=== PATIENT | male | born 1955 | race Caucasian/White ===

== ENCOUNTER 2020-03-10 08:18 | Outpatient (CLI) | payer MEDICARE, SELFPAY ==
--- NOTE | 2020-03-10 08:24 | XR_ITS ---
WS: [id number] Chest 2 views, 03/10/2020 Clinical Data: HX of Renal cancer Comparison: PA and lateral chest, 06/10/2019. Findings: No nodules, masses or effusions are seen. The heart is normal. The pulmonary vascularity is not increased. No pneumonia or pneumothorax is seen. There is elevation of the left diaphragm and mi nimal left basilar scarring. The aortic arch and descending aorta show atherosclerosis. The right dionicio phragm is flattened. XR/XR chest 2V* [id number] Impression: 1. Atherosclerosis and hyperinflation. 2. Postoperative left basilar scarring and elevation of the left diaphragm unch anged.
[2020-03-10 08:59] LABS: Basophils % 0.2 %; Eosinophils # 0.4 10^3/uL (0.0-0.8); Eosinophils % 3.9 %; Hematocrit 46.2 % (42.0-52.0); Hemoglobin 14.3 g/dL (11.7-16.6); Lymphocytes # 2.3 10^3/uL (0.8-4.8); Lymphocytes % 24.9 %; Mean Corpuscular Hemoglobin 31.5 pg (28.0-34.0); Mean Corpuscular Volume 101.8 fL (80-94); Mean Platelet Volume 9.1 fL (7.4-10.4); Monocytes # 0.9 10^3/uL (0.2-0.9); Neutrophils # 5.6 10^3/uL (1.8-7.7); Neutrophils % 60.7 %; Nucleated Red Blood Cells % 0 %; Platelet Count 239 10^3/cmm (130-400); Red Blood Count 4.54 10^6/uL (4.1-5.3); Red Cell Distribution Width 13.3 % (12.1-15.1); White Blood Count 9.2 10^3/uL (4.0-10.0)
[2020-03-10 09:31] LABS: Alanine Aminotransferase 28 U/L (0-41); Albumin Level 4.4 g/dL (3.5-5.2); Alkaline Phosphatase 81 IU/L (40-130); Anion Gap 16.4 (5-19); Aspartate Amino Transferase 20 U/L (0-40); Blood Urea Nitrogen 21 mg/dL (8-23); Calcium 9.2 mg/dL (8.5-10.5); Carbon Dioxide 23 mmol/L (22-29); Chloride 107 mmol/L (98-107); Globulin 2.5 g/dL (1.3-4.6); Glomerular Filtration Rate 55.2 mL/min (90-130); Glucose 122 mg/dL (65-115); Osmolality Calculated 290 mOsm/kg (285-295); Potassium 5.4 mmol/L (3.5-5.1); Sodium 141 mmol/L (136-145); Total Bilirubin 0.2 mg/dL (0.15-1.2); Total Protein 6.9 g/dL (6.6-8.7)
== END 2020-03-10 08:19 | disposition home or self-care (01) ==
LOC: RAD 08:22
PROVIDERS: Family Provider Electrodiagnostic Medicine; PCP Electrodiagnostic Medicine; Visit Provider Urology
DX: Z85.528 Personal history of other malignant neoplasm of kidney (principal); N41.1 Chronic prostatitis; I70.90 Unspecified atherosclerosis
CPT/HCPCS: 71046; 80053; 81001; 84153; 85025

== ENCOUNTER 2020-06-11 07:46 | Outpatient (CLI) | payer MEDICARE, SELFPAY ==
--- NOTE | 2020-06-11 08:04 | CT_ITS ---
WS: [id number] CT HEAD NONCONTRAST HISTORY: HISTORY OF CLOSED HEAD INJURY TECHNIQUE: Contiguous axial imaging performed through the brain in 2.5 mm imaging. Bone and soft tiss ue windows. All CT scans at [facility] use at least one of these dose optimization techniq ues: automated exposure control; mA and/or kV adjustment per patient size (includes targeted exams wh ere dose is matched to clinical indication); or iterative reconstruction. DLP: 992.04 mGycm COMPARISON: None available. No acute intracranial hemorrhage, midline shift or mass effect. Mild atrophy and mild chronic microvascular ischemic disease. No prior infarct. Mild cerebellar atrop hy also. Ventricles: Normal size with no hydrocephalus. No inferior displacement of the cerebellar tonsils. Paranasal sinuses: Moderate mucoperiosteal thickening bilateral ethmoid air cells. No air-fluid level s. Mastoid air cells: Well pneumatized. Calvarium and scalp: Skull is intact with no soft tissue edema or swelling. CT/CT head wo con* [id number] IMPRESSION: 1. No acute intracranial hemorrhage or edema. 2. Mild cerebral and cerebellar atrophy. 3. Moderate bilateral ethmoid air cell disease.
== END 2020-06-11 07:47 | disposition home or self-care (01) ==
LOC: RADWPI 07:50
PROVIDERS: Family Provider Electrodiagnostic Medicine; PCP Electrodiagnostic Medicine; Visit Provider Electrodiagnostic Medicine
DX: Z87.828 Personal history of other (healed) physical injury and trauma (principal); G31.9 Degenerative disease of nervous system, unspecified
CPT/HCPCS: 70450

== ENCOUNTER 2020-12-07 07:50 | Outpatient (CLI) | payer MEDICARE, SELFPAY ==
--- NOTE | 2020-12-07 07:59 | XRR_ITS ---
PROCEDURE INFORMATION: Exam: XR Chest Exam date and time: 12/07/2020 8:09 AM Age: 65 years old Clinical indication: Condition or disease; Other: Renal cancer; Prior surgery; Surgery type: Left lower lung lobe removal; Additional info: Renal CA TECHNIQUE: Imaging protocol: XR of the chest Views: 2 views. COMPARISON: CT chest w con* [id number] 03/11/2020 12:12 PM FINDINGS: Lungs: There is stable chronic elevation of the left hemidiaphragm with left basilar fibrosis consistent with the history of left lower lobectomy. Bilateral emphysematous changes are present. No acute pneumonia is seen. Pleural spaces: Unremarkable. No pleural effusion. No pneumothorax. Heart/Mediastinum: Unremarkable. No cardiomegaly. Vasculature: A MediPort catheter is present in satisfactory position with the tip projecting in the SVC. Bones/joints: Unremarkable. XR/XR chest 2V* [id number] IMPRESSION: 1. Postsurgical changes in the left base consistent with history of lower lobectomy. 2. No acute abnormalities.
== END 2020-12-07 07:51 | disposition home or self-care (01) ==
LOC: RAD 07:56
PROVIDERS: PCP Electrodiagnostic Medicine; Visit Provider Urology
DX: C64.9 Malignant neoplasm of unspecified kidney, except renal pelvis (principal); R97.20 Elevated prostate specific antigen [PSA]
CPT/HCPCS: 71046; 80053; 81003; 84153; 85025

== ENCOUNTER 2021-07-12 09:41 | Outpatient (CLI) | payer MEDICARE, SELFPAY ==
--- NOTE | 2021-07-12 09:46 | XR_ITS ---
WS: [id number] XR chest 2V* [id number] REASON FOR EXAM: Renal CANCER FINDINGS: The chest is unchanged compared to 12/07/2020. The heart and mediastinum are within normal limits. Chemotherapy infusion port over the right chest with transvenous right jugular catheter with tip in t he superior vena cava. Elevation of the left hemidiaphragm with blunting of the left costophrenic angle. Calcified granulomatous disease in both hemithoraces. No active pulmonary parenchymal or pleural disease. No significant abnormality of the bony thorax. XR/XR chest 2V* [id number] IMPRESSION: Stable chest as above. No acute abnormality.
[2021-07-12 10:59] LABS: Basophils % 0.3 %; Eosinophils # 0.2 10^3/uL (0.0-0.8); Eosinophils % 1.8 %; Hematocrit 36.1 % (42.0-52.0); Hemoglobin 11.2 g/dL (11.7-16.6); Lymphocytes # 1.5 10^3/uL (0.8-4.8); Lymphocytes % 14.9 %; Mean Corpuscular Hemoglobin 33.2 pg (28.0-34.0); Mean Corpuscular Volume 107.1 fl (80-94); Mean Platelet Volume 9.4 fL (7.4-10.4); Monocytes % 9.4 %; Neutrophils # 7.53 10^3/uL (1.8-7.7); Neutrophils % 73.3 %; Nucleated Red Blood Cells % 0 %; Platelet Count 176 10^3/cmm (130-400); Red Blood Count 3.37 10^6/uL (4.1-5.3); Red Cell Distribution Width 15.7 % (12.1-15.1); White Blood Count 10.3 10^3/uL (4.0-10.0)
[2021-07-12 12:04] LABS: Alanine Aminotransferase 6 U/L (0-41); Albumin Level 3.9 g/dL (3.5-5.2); Alkaline Phosphatase 58 IU/L (40-130); Anion Gap 18.8 (5-19); Aspartate Amino Transferase 8 U/L (0-40); Blood Urea Nitrogen 16 mg/dL (8-23); Calcium 10.2 mg/dL (8.5-10.5); Carbon Dioxide 23 mmol/L (22-29); Chloride 103 mmol/L (98-107); Globulin 3.2 g/dL (1.3-4.6); Glomerular Filtration Rate 96.4 mL/min (90-130); Glucose 93 mg/dL (65-115); Osmolality Calculated 291 mOsm/kg (285-295); Potassium 4.8 mmol/L (3.5-5.1); Sodium 140 mmol/L (136-145); Total Bilirubin 0.2 mg/dL (0.15-1.2); Total Protein 7.1 g/dL (6.6-8.7)
== END 2021-07-12 09:42 | disposition home or self-care (01) ==
PROVIDERS: PCP Electrodiagnostic Medicine; Visit Provider Urology
DX: C64.9 Malignant neoplasm of unspecified kidney, except renal pelvis (principal); R97.20 Elevated prostate specific antigen [PSA]
CPT/HCPCS: 36415; 71046; 80053; 81003; 84153; 85025

== ENCOUNTER 2021-10-31 08:15 | Outpatient (CLI) | payer MEDICARE, SELFPAY | END 2021-10-31 08:16 | disposition home or self-care (01) | LOC: WOUND 08:18 | PROVIDERS: PCP Electrodiagnostic Medicine; Visit Provider Thoracic Surgery (Cardiothoracic Vascular Surgery) | DX: I96 Gangrene, not elsewhere classified (principal); L05.91 Pilonidal cyst without abscess; Z87.891 Personal history of nicotine dependence | CPT/HCPCS: 11042; 99213; A6212 ==

== ENCOUNTER 2021-11-02 10:09 | Outpatient (CLI) | payer MEDICARE, SELFPAY ==
--- NOTE | 2021-11-02 10:15 | XR_ITS ---
WS: [id number] XR chest 2V* [id number] REASON FOR EXAM: L LUNG SQUAMOUS CELL CARCINOMA/HTN/PULMONARY EMBOLISM FINDINGS: Chemotherapy infusion port with transvenous jugular catheter, tip in the superior vena cava. The heart and mediastinum are within normal limits. Elevation of the left hemidiaphragm with blunting of the left costophrenic angle. Calcified granulomatous disease. Emphysematous changes in the upper lobes. No acute pulmonary parench ymal or pleural abnormality. Moderate changes of degenerative spondylosis in the mid and lower thoracic spine. XR/XR chest 2V* [id number] IMPRESSION: No acute chest abnormality. Chest appears stable compared to 07/12/2021.
== END 2021-11-02 10:10 | disposition home or self-care (01) ==
LOC: RAD 10:14
PROVIDERS: PCP Electrodiagnostic Medicine; Visit Provider Electrodiagnostic Medicine
DX: C34.32 Malignant neoplasm of lower lobe, left bronchus or lung (principal); C64.9 Malignant neoplasm of unspecified kidney, except renal pelvis; I26.99 Other pulmonary embolism without acute cor pulmonale; I10 Essential (primary) hypertension; J44.9 Chronic obstructive pulmonary disease, unspecified
CPT/HCPCS: 71046

== ENCOUNTER 2021-11-07 09:08 | Outpatient (CLI) | payer MEDICARE, SELFPAY | END 2021-11-07 09:09 | disposition home or self-care (01) | LOC: WOUND 09:09 | PROVIDERS: PCP Electrodiagnostic Medicine; Visit Provider Thoracic Surgery (Cardiothoracic Vascular Surgery) | DX: T81.89XA Other complications of procedures, not elsewhere classified, initial encounter (principal); Y83.8 Other surgical procedures as the cause of abnormal reaction of the patient, or of later complication, without mention of misadventure at the time of the procedure; Z87.891 Personal history of nicotine dependence | CPT/HCPCS: 11042 ==

== ENCOUNTER 2021-11-14 10:54 | Outpatient (CLI) | payer MEDICARE, SELFPAY | END 2021-11-14 10:55 | disposition home or self-care (01) | LOC: WOUND 10:55 | PROVIDERS: PCP Electrodiagnostic Medicine; Visit Provider Thoracic Surgery (Cardiothoracic Vascular Surgery) | DX: T81.89XA Other complications of procedures, not elsewhere classified, initial encounter (principal); Y83.8 Other surgical procedures as the cause of abnormal reaction of the patient, or of later complication, without mention of misadventure at the time of the procedure; Z87.891 Personal history of nicotine dependence | CPT/HCPCS: 97597 ==

== ENCOUNTER 2021-11-21 13:49 | Outpatient (CLI) | payer MEDICARE, SELFPAY | END 2021-11-21 13:50 | disposition home or self-care (01) | LOC: WOUND 13:50 | PROVIDERS: PCP Electrodiagnostic Medicine; Visit Provider Thoracic Surgery (Cardiothoracic Vascular Surgery) | DX: T81.89XA Other complications of procedures, not elsewhere classified, initial encounter (principal); Y83.8 Other surgical procedures as the cause of abnormal reaction of the patient, or of later complication, without mention of misadventure at the time of the procedure; Z87.891 Personal history of nicotine dependence | CPT/HCPCS: 97597; A6212 ==

== ENCOUNTER 2021-11-28 13:17 | Outpatient (CLI) | payer MEDICARE, SELFPAY | END 2021-11-28 13:18 | disposition home or self-care (01) | LOC: WOUND 13:18 | PROVIDERS: PCP Electrodiagnostic Medicine; Visit Provider Thoracic Surgery (Cardiothoracic Vascular Surgery) | DX: T81.31XS Disruption of external operation (surgical) wound, not elsewhere classified, sequela (principal); Y83.8 Other surgical procedures as the cause of abnormal reaction of the patient, or of later complication, without mention of misadventure at the time of the procedure | CPT/HCPCS: 11042; 97597; A6212; A6219 ==

== ENCOUNTER 2021-11-29 23:45 | Inpatient (IN) | payer MEDICARE, SELFPAY ==
[2021-11-29 23:57] VITALS: BP 104/64; PULSE 112; RESP 22; TEMP 39.3; O2SAT 93; BMI 25.1
[2021-11-30] VITALS (202 sets, daily range): BP systolic 79–129; BP diastolic 51–71; PULSE 40–125; RESP 11–33; TEMP 36.5–37.1; O2SAT 92–100
--- NOTE | 2021-11-30 00:04 | ECG_ITS ---
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 Measurements Intervals Cunningham Rate: 90 P: 47 MO: 192 QRS: 73 QRSD: 147 T: 31 QT: 387 QTc: 476 Interpretive Statements SINUS RHYTHM RIGHT BUNDLE BRANCH BLOCK [120+ ms QRS DURATION, UPRIGHT V1, 40+ ms S IN I/aVL/V4/V5/V6] Compared to ECG 12/31/2016 03:17:02 Right bundle-branch block now present Intraventricular conduction delay no longer present Electronically Signed On 11-30-2021 16:01:03 WAREHOUSE ASSOCIATE by Ramon Adams M.D. [id number]
--- NOTE | 2021-11-30 00:13 | CTR_ITS ---
PROCEDURE INFORMATION: Exam: CT Head Without Contrast Exam date and time: 11/30/2021 12:13 AM Age: 66 years old Clinical indication: Altered mental status/memory loss; Patient HX: Increased confusion with hypotension. History of lung/renal cancer. ; Additional info: AMS TECHNIQUE: Imaging protocol: Computed tomography of the head without contrast. Radiation optimization: All CT scans at this facility use at least one of these dose optimization techniques: automated exposure control; mA and/or kV adjustment per patient size (includes targeted exams where dose is matched to clinical indication); or iterative reconstruction. COMPARISON: CT head wo con* [id number] 06/11/2020 8:10 AM RADIATION DOSE METRICS: Total DLP (mGy-cm): 851.86 FINDINGS: Brain: Normal. No hemorrhage. Unremarkable white matter. No mass effect. Cerebral ventricles: No ventriculomegaly. Paranasal sinuses: Visualized sinuses are unremarkable. No fluid levels. Mastoid air cells: Visualized mastoid air cells are well aerated. Bones/joints: Unremarkable. No acute fracture. Soft tissues: Unremarkable. CT/CT head wo con* [id number] IMPRESSION: No acute intracranial abnormality.
--- NOTE | 2021-11-30 00:19 | ED_ITS ---
HPI - Altered Mental Status General: Chief Complaint: Altered Mental Status Stated Complaint: AMS Time Seen by Provider: 11/29/21 23:47 Source: patient and EMS Mode of arrival: EMS Limitations: no limitations History of Present Illness: 66-year-old male who history of lung cancer in the past had a lobectomy called EMS today because he was running fever having altered mental status he is also had a slight cough. EMS states when he arrived he is quite altered he is now awake alert answering all my questions appropriately he is back to his baseline. He states that he has not felt well over the last day to 2 and has had fevers and chills. He denies any worsening improving factors denies any headache or neck pain. Associated symptoms: Deny depression Review of Systems Const: Reports: fever(s), chills and body aches Eyes: Denies: blurry vision or eye discomfort ENMT: Denies: throat pain or dental pain Card: Denies: chest pain Resp: Reports: non-productive cough GI: Denies: abdominal pain, nausea, vomiting or diarrhea : Denies: dysuria Musc: Denies: neck pain or back pain Skin/Breast: Denies: rash Neuro: Reports: confusion Psych: Denies: depression Ankur/Lymph: Denies: easy bruising All/Imm: Denies: urticaria PFSH ED PFSH: Medical History (Updated 11/30/21 @ 02:39 by Lucio Cueto MD) BPH loc w urin obs/LUTS Elevated PSA Renal cancer S/p nephrectomy Surgical History H/O hernia repair H/O prostate biopsy Previous back surgery Family History Father , AT AGE 58 Automobile accident Mother , AT AGE 89 CHF (congestive heart failure) Social History Smoking and tobacco status: former smoker Alcohol intake: never Marital status: Current occupational status: retired History of recent travel: No Physical Exam Const: COMMON NORMALS: patient oriented x3 GENERAL APPEARANCE: in distress, ill appearing and frail appearing HENMT: COMMON NORMALS: normocephalic and atraumatic HEAD & SCALP: normocephalic and atraumatic Eye: COMMON NORMALS: Equal, round and reactive pupils present and EOMs intact bilaterally PUPIL: Yes Equal, round and reactive pupils present Neck/C-Spine: COMMON NORMALS: full ROM and supple Chest: COMMONS NORMALS: normal inspection of the chest and normal palpation of entire chest wall Resp: COMMON NORMALS: normal respiratory effort, No retractions, No use of accessory muscles and clear to auscultation bilaterally AUSCULTATION: clear to auscultation bilaterally Cardio: COMMON NORMALS: regular rate, regular rhythm and No murmurs present (Cardio) RATE: regular rate RHYTHM: regular rhythm GI: COMMON NORMALS: Normal to inspection, nondistended, normoactive bowel sounds present, Soft to palpation, non-tender and no masses PALPATION: Yes Soft to palpation Extremity: COMMON NORMALS: normal to inspection and full ROM Neuro: COMMON NORMALS: patient oriented x3, moves all extremities and no focal motor deficits Psych: COMMON NORMALS: mental status grossly normal, Normal thought process present and cooperative THOUGHT PROCESS: Normal thought process present Skin: COMMON NORMALS: no rashes or lesions noted and no wounds GENERAL SKIN EXAM: no rashes or lesions noted Course Vital Signs: Vital signs: Vital Signs Temperature 102.7 F H 11/29/21 23:57 Pulse Rate 101 H 11/30/21 01:59 Respiratory Rate 14 11/30/21 01:59 Blood Pressure 93/56 11/30/21 01:59 Pulse Oximetry 98 11/30/21 01:59 MDM - Altered Mental Status Medical Decision Making Patient presents with fever along with hypotension consistent with sepsis his lactate was normal does have an elevated white count blood pressures much improved here after IV fluids. He also has anemia speak in his has had some chronic anemia no signs of acute hemorrhage we will give him 1 unit of blood though. Patient started on IV antibiotics as well x-ray showed a pneumonia. After being here he is now awake alert answering all my questions appropriately he has no altered mental status here denies any headache or neck pain no signs of meningitis Lab Data : 11/30/21 01:00 11/29/21 23:[address] 11/30/21 00:13 IMPRESSION: No acute intracranial abnormality. Chest X-Ray 11/30/21 00:56 IMPRESSION: 1. Stable right Mediport catheter. 2. Mild bibasilar atelectasis and/or pneumonia. Laboratory Results WBC 21.3 10^3/uL (4.0-10.0) H 11/29/21 23:48 RBC 2.68 10^6/uL (4.1-5.3) L 11/29/21 23:48 Hgb 7.1 g/dL (11.7-16.6) L 11/30/21 01:00 Hct 24.8 % (42.0-52.0) L 11/30/21 01:00 MCV 92.9 fl (80-94) 11/29/21 23:48 MCH 26.5 pg (28.0-34.0) L 11/29/21 23:48 MCHC 28.5 g/dL (30.0-36.0) L 11/29/21 23:48 RDW 18.0 % (12.1-15.1) H 11/29/21 23:48 Plt Count 235 10^3/cmm (130-400) 11/29/21 23:48 MPV 10.6 fL (7.4-10.4) H 11/29/21 23:48 Neut % (Auto) 89.1 % 11/29/21 23:48 Lymph % (Auto) 2.0 % 11/29/21 23:48 [place] % (Auto) 7.8 % 11/29/21 23:48 Eos % (Auto) 0.4 % 11/29/21 23:48 Baso % (Auto) 0.1 % 11/29/21 23:48 Neut # (Auto) 18.93 10^3/uL (1.8-7.7) H 11/29/21 23:48 Lymph # (Auto) 0.4 10^3/uL (0.8-4.8) L 11/29/21 23:48 [place] # (Auto) 1.7 10^3/uL (0.2-0.9) H 11/29/21 23:48 Eos # (Auto) 0.1 10^3/uL (0.0-0.8) 11/29/21 23:48 Baso # (Auto) 0.0 10^3/uL (0.0-0.1) 11/29/21 23:48 Nucleated RBC % (auto) 0 % 11/29/21 23:48 Nucleated RBCs # 0.0 /100WBC 11/29/21 23:48 PT 20.20 SECONDS (12.1-14.9) H 11/29/21 23:31 INR 1.69 (0.8-1.2) H 11/29/21 23:31 Specimen Type Arterial 11/30/21 02:13 Sample Site Brachial, right 11/30/21 02:13 ABG pH 7.42 (7.35-7.45) 11/30/21 02:13 ABG pCO2 40.8 mmHg (35-45) 11/30/21 02:13 ABG pO2 76.2 mmHg (80.0-100.0) L 11/30/21 02:13 ABG HCO3 26.2 mmol/L (22-26) H 11/30/21 02:13 ABG Base Excess 1.5 mmol/L (-2.0-2.0) 11/30/21 02:13 Prabhjot Test Pos 11/30/21 02:13 Hematocrit 23.1 % (42-52) L 11/30/21 02:13 O2 Delivery Device Nc 11/30/21 02:13 O2 Liters/Min 3.5 % 11/30/21 02:13 Head Of Acquisitions ID Sai 11/30/21 02:13 Sodium 136 mmol/L (136-145) 11/29/21 23:31 Potassium 4.1 mmol/L (3.5-5.1) 11/29/21 23:31 Chloride 99 mmol/L (98-107) 11/29/21 23:31 Carbon Dioxide 26 mmol/L (22-29) 11/29/21 23:31 Anion Gap 15.1 (5-19) 11/29/21 23:31 BUN 17 mg/dL (8-23) 11/29/21 23:31 Creatinine 0.9 mg/dL (0.7-1.2) 11/29/21 23:31 GFR Calculation 83.9 mL/min (90-130) L 11/29/21 23:31 Glucose 121 mg/dL (65-115) H 11/29/21 23:31 Calculated Osmolality 285 mOsm/kg (285-295) 11/29/21 23:31 Lactic Acid 1.7 mmol/L (0.5-2.2) 11/29/21 23:48 Calcium 10.5 mg/dL (8.5-10.5) 11/29/21 23:31 Total Bilirubin 0.3 mg/dL (0.15-1.2) 11/29/21 23:31 AST 17 U/L (0-40) 11/29/21 23:31 ALT 19 U/L (0-41) 11/29/21 23:31 Alkaline Phosphatase 106 IU/L (40-130) 11/29/21 23:31 Total Protein 6.0 g/dL (6.6-8.7) L 11/29/21 23:31 Albumin 2.8 g/dL (3.5-5.2) L 11/29/21 23:31 Globulin 3.2 g/dL (1.3-4.6) 11/29/21 23:31 Lipase 6 U/L (13-60) L 11/29/21 23:31 SARS-CoV-2 Ag (Rapid) Negative (Negative) 11/30/21 01:31 Critical Care Time Critical Care Time: Critical Care Time: Yes Total Critical Care Time: 40 Attestation: The high probability of a clinically significant, sudden or life threatening deterioration of the patient's CV, pulm system(s) required my full and direct attention, intervention and personal management. The critical care time is as shown. This time is in addition to time spent performing any reported procedures but includes the following: [x] Data and vital sign review and interpretation [x] Patient assessment, examination and intervention [x] Documentation [x] Medication orders and management Discharge Plan Discharge Patient Disposition: Admitted As Inpatient Clinical Impression: Anemia Altered mental status Qualifiers: Altered mental status type: unspecified Qualified Code(s): R41.82 - Altered mental status, unspecified Sepsis Qualifiers: Sepsis type: sepsis due to unspecified organism Pneumonia Qualifiers: Pneumonia type: due to unspecified organism Laterality: bilateral Lung location: lower lobe of lung Qualified Code(s): J18.9 - Pneumonia, unspecified organism Condition: Stable Coding Level of Care Code ED Regional Environmental [employer] for [facility] Fwd Exam Comprehensive
[2021-11-30 00:22] LABS: INR 1.69 (0.8-1.2)
[2021-11-30 00:25] LABS: Basophils % 0.1 %; Eosinophils # 0.1 10^3/uL (0.0-0.8); Eosinophils % 0.4 %; Hematocrit 24.9 % (42.0-52.0); Hemoglobin 7.1 g/dL (11.7-16.6); Lymphocytes # 0.4 10^3/uL (0.8-4.8); Mean Corpuscular HGB Conc 28.5 g/dL (30.0-36.0); Mean Corpuscular Hemoglobin 26.5 pg (28.0-34.0); Mean Corpuscular Volume 92.9 fl (80-94); Mean Platelet Volume 10.6 fL (7.4-10.4); Monocytes # 1.7 10^3/uL (0.2-0.9); Monocytes % 7.8 %; Neutrophils # 18.93 10^3/uL (1.8-7.7); Neutrophils % 89.1 %; Nucleated Red Blood Cells % 0 %; Platelet Count 235 10^3/cmm (130-400); Red Blood Count 2.68 10^6/uL (4.1-5.3); White Blood Count 21.3 10^3/uL (4.0-10.0)
[2021-11-30 00:30] LABS: Lactic Sepsis W/Reflex 1.7 mmol/L (0.5-2.2)
[2021-11-30 00:31] LABS: Alanine Aminotransferase 19 U/L (0-41); Albumin Level 2.8 g/dL (3.5-5.2); Alkaline Phosphatase 106 IU/L (40-130); Anion Gap 15.1 (5-19); Aspartate Amino Transferase 17 U/L (0-40); Blood Urea Nitrogen 17 mg/dL (8-23); Calcium 10.5 mg/dL (8.5-10.5); Carbon Dioxide 26 mmol/L (22-29); Chloride 99 mmol/L (98-107); Creatinine Clr Calc Pharmacy 83.9462; Globulin 3.2 g/dL (1.3-4.6); Glomerular Filtration Rate 83.9 mL/min (90-130); Glucose 121 mg/dL (65-115); Lipase 6 U/L (13-60); Osmolality Calculated 285 mOsm/kg (285-295); Potassium 4.1 mmol/L (3.5-5.1); Sodium 136 mmol/L (136-145); Total Bilirubin 0.3 mg/dL (0.15-1.2)
--- NOTE | 2021-11-30 00:56 | XRR_ITS ---
PROCEDURE INFORMATION: Exam: XR Chest Exam date and time: 11/30/2021 12:56 AM Age: 66 years old Clinical indication: Fever and shortness of breath; Prior surgery; Surgery type: Chest port. ; Patient HX: SOB with fever. History of lung/renal cancer. TECHNIQUE: Imaging protocol: XR of the chest. Views: 1 view. COMPARISON: CR XR chest 2V* [id number] 11/02/2021 10:21 AM FINDINGS: Tubes, catheters and devices: Stable right Mediport catheter. Lungs: Mild bibasilar atelectasis and/or pneumonia. Pleural spaces: Unremarkable. No pleural effusion. No pneumothorax. Heart/Mediastinum: Unremarkable. No cardiomegaly. Vasculature: Calcification of the thoracic aorta and/or great vessels consistent with atherosclerotic vessel disease. Diaphragm: Stable elevation of the left hemidiaphragm consistent with eventration. Bones/joints: Unremarkable. XR/XR chest 1V portable [id number] IMPRESSION: 1. Stable right Mediport catheter. 2. Mild bibasilar atelectasis and/or pneumonia.
[2021-11-30 01:17] LABS: Hematocrit 24.8 % (42.0-52.0); Hemoglobin 7.1 g/dL (11.7-16.6)
[2021-11-30] MEDS: piperacillin-tazobactam 3.375 GM in sodium chloride 0.9% (plus) 50 ML IV (01:26)
[2021-11-30] MEDS: sodium chloride 0.9% 2,381.37 ML 2381.37 ML IV (01:37)
[2021-11-30] MEDS: vancomycin 1,000 MG in sodium chloride 0.9% 250 ML 250 MG IV (01:42)
[2021-11-30] MEDS: acetaminophen 500 mg Tablet 1000 MG PO (01:47)
[2021-11-30 02:14] LABS: SARS Covid-2 Antigen Negative (Negative)
[2021-11-30 02:27] LABS: ABG PCO2 40.8 mmHg (35-45); ABG PH Result 7.42 (7.35-7.45); Arterial Blood Gas Hematocrit 23.1 % (42-52); Base Excess ABG 1.5 mmol/L (-2.0-2.0); Blood Gas Allen Test Pos; Blood Gas LPM 3.5 %; Blood Gas Operator Identificat JB; Blood Gas Sample Site Brachial, right; Blood Gas Sample Type Arterial; HCO3 ABG 26.2 mmol/L (22-26); Oxygen Device NC; PO2 ABG 76.2 mmHg (80.0-100.0)
[2021-11-30] MEDS: morphine 4 mg/mL SDV 1 mL IVP (02:50)
[2021-11-30] MEDS: ondansetron 2 mg/ML SDV 2 mL 4 MG IVP (02:51)
[2021-11-30 03:03] LABS: Add Urine Microscopic? NO; Charge for UA Resulting for Rev
[2021-11-30 03:06] LABS: Bilirubin Urine Neg (Negative); Blood Urine Neg (Negative); Glucose Urine UA Norm (Normal); Ketones Urine Negative (Negative); Nitrate Urine Negative (Negative); Protein Urine Neg (Negative); Specific Gravity, Urine 1.025 (1.005-1.030); Urine Appearance Clear (CLEAR); Urine Color Yellow (Yellow); pH Urine 5 (5-7)
[2021-11-30 03:07] LABS: Leukocyte Esterase Urine Negative (Negative); Urobilinogen Urine 4 mg/dL (Negative)
[2021-11-30 03:19] LABS: Influenza A by IFA Negative (Negative); Influenza B by IFA Negative (Negative)
--- NOTE | 2021-11-30 03:34 | PM.HP ---
Providers/Chief Complaint Admitting Physician: Melvin Liu DO Primary Care Provider: Mikael Gibson DO Chief Complaint: AMS History of Present Illness The patient is a 58-year-old male who was transferred to the emergency department due to encephalopathy as well as dyspnea. Per the patient and the patient's that start approximate 8:30 PM on November 29, 2021. Patient has known history of COPD for which she is O2 dependent at 3-1/2-4 L as he was a former smoker. Since the time of his onset of symptoms, the patient really endorses no complaints. He denies fever, rigors, nausea, vomiting, cough, wheeze, dental pain, diarrhea, myalgia, chest pain, lightheadedness, dizziness. Upon further questioning the patient indicates that he is chronic minor bipedal edema. He denies a no dyspnea and he denies dysgeusia. In the emergency department, on radiographic studies, he was found to have pneumonia. He presents for further evaluation Review of Systems General: Reports: 10 or more systems reviewed and unremarkable except in HPI and below Medications/Allergies Home Medications Medication Instructions Recorded Confirmed Last Taken Type albuterol sulfate 90 mcg/actuation 2 puff INHALATION Q6H PRN 03/10/20 11/30/21 Unknown History aerosol inhaler (Ventolin HFA) apixaban 5 mg tablet (Eliquis) 5 mg PO BID 03/10/20 11/30/21 Unknown History escitalopram oxalate 10 mg tablet 10 mg PO DAILY 03/10/20 11/30/21 Unknown History fluticasone 100 mcg-salmeterol 50 1 inh INHALATION BID 03/10/20 11/30/21 Unknown History mcg/dose blistr powdr for inhalation (Advair Diskus) simvastatin 20 mg tablet 20 mg PO DAILY 03/10/20 07/12/21 Unknown History acetaminophen 650 mg 650 mg PO Q8H PRN 12/07/20 07/12/21 Unknown History tablet,extended release (Tylenol Arthritis Pain) hydrocodone 5 mg-acetaminophen 325 1 tab PO Q4H PRN 12/07/20 07/12/21 Unknown History mg tablet metoprolol succinate 25 mg 25 mg PO DAILY 12/07/20 07/12/21 Unknown History tablet,extended release 24 hr finasteride 5 mg tablet See Rx Instructions .ROUTE 07/12/21 11/30/21 Unknown Rx .COMPLEX #90 tab tamsulosin 0.4 mg capsule See Rx Instructions .ROUTE 07/12/21 11/30/21 Unknown Rx .COMPLEX #180 cap alprazolam 0.25 mg tablet 0.25 mg PO BID PRN 11/30/21 11/30/21 Unknown History morphine 30 mg tablet,extended 30 mg PO Q8H PRN 11/30/21 11/30/21 Unknown History release oxycodone 15 mg tablet 15 mg PO Q4H PRN 11/30/21 11/30/21 Unknown History Allergies Allergy/AdvReac Type Severity Reaction Status Date / Time No Known Allergies Allergy Verified 07/12/21 12:46 PFSH Acute PFSH: Medical History BPH loc w urin obs/LUTS Elevated PSA Renal cancer S/p nephrectomy Surgical History H/O hernia repair H/O prostate biopsy Previous back surgery Family History Father , AT AGE 58 Automobile accident Mother , AT AGE 89 CHF (congestive heart failure) Social History Smoking and tobacco status: former smoker Alcohol intake: never Marital status: Current occupational status: retired History of recent travel: No Vitals/I&O/Wt Last Vital Signs Temp 102.7 F H 11/29/21 23:57 Pulse 101 H 11/30/21 01:59 Resp 16 11/30/21 02:50 BP 93/56 11/30/21 01:59 Pulse Ox 93 11/30/21 02:50 11/29/21 11/29/21 11/30/21 14:59 22:59 06:59 Intake Total 2681.37 / 2681.37 Balance 2681.37 / 2681.37 Weight last 48 hrs Weight 79.379 kg Physical Exam Const: COMMON NORMALS: no acute distress, average body habitus, patient oriented x3, no limitations, healthy appearing, alert and well nourished HENMT: COMMON NORMALS: normocephalic, atraumatic, hearing grossly normal bilaterally, external ears normal, EAC's normal, TM's normal bilaterally, Normal external nose present, Normal nasal mucous membranes and turbinates present, moist oral mucous membranes, oropharynx normal, dentition normal and gingiva normal FACE & SINUS: normal facial exam NOSE: Normal external nose present EXTERNAL EAR: Yes external ears normal Eye: COMMON NORMALS: Equal, round and reactive pupils present, EOMs intact bilaterally, conjunctivae normal, no scleral icterus, no papilledema, normal visual benitez by confrontation and fundi normal bilaterally GENERAL EYE: appearance normal, both eyes and all related structures VISUAL ACUITY: Yes acuity normal EYELID: eyelids normal SCLERA: sclerae normal CORNEA: Yes corneas normal EOM: Yes EOM abnormal Neck/C-Spine: COMMON NORMALS: full ROM, no lymphadenopathy, supple, no meningeal signs, no JVD, Thyroid normal and No carotid bruits THYROID: Thyroid normal CERVICAL SPINE: Yes cervical ROM normal Chest: COMMONS NORMALS: normal inspection of the chest, normal palpation of entire chest wall, normal inspection of the breasts and normal palpation of the breasts Resp: COMMON NORMALS: normal respiratory effort, No retractions, No use of accessory muscles, clear to auscultation bilaterally and percussion normal Cardio: COMMON NORMALS: no JVD, regular rate, regular rhythm, S1 normal heart sound present, S2 normal heart sound present, No gallops present (Cardio), No clicks present (Cardio), No murmurs present (Cardio), No rub (Cardio) and Peripheral pulses 2+ throughout GI: COMMON NORMALS: Normal to inspection, nondistended, normoactive bowel sounds present, Soft to palpation, non-tender, No hepatosplenomegaly present, no masses and no bruits : COMMON NORMALS: Yes no CVA tenderness, Yes normal external exam, Yes Testes normal, Yes scrotum normal, Yes no scrotal swelling and Yes No hernias present Back/Pelvis: COMMON NORMALS: no CVA tenderness, thoracic and lumbar spine normal to inspection, no thoracic nor lumbar tenderness, thoraco-lumbar ROM normal and straight leg raise negative bilaterally LUMBAR SPINE/LOWER BACK: Yes normal to inspection Extremity: COMMON NORMALS: normal to inspection, full ROM, capillary refill normal, no joint enlargement, no clubbing, cyanosis or edema, no calf tenderness and no pedal edema GENERAL: Yes normal exam except as noted Neuro: COMMON NORMALS: patient oriented x3, CN's II-XII intact bilaterally, moves all extremities, no focal motor deficits, no sensory deficits noted, deep tendon reflexes 2+ bilaterally and gait normal CRANIAL NERVES: Yes CN normal except as noted DEEP TENDON REFLEXES: Right triceps reflex intensity grade: 2+, Left triceps reflex intensity grade: 2+, Rt Biceps (C5, C6): 2+, Left biceps reflex intensity grade: 2+, Right brachioradialis reflex intensity grade: 2+, Left brachioradialis reflex intensity grade: 2+, Right patellar reflex intensity grade: 2+, Left patellar reflex intensity grade: 2+, Right ankle reflex intensity grade: 2+ and Left ankle reflex intensity grade: 2+ PUPIL EXAM: Normal pupillary reactivity/response: bilateral, Dilated: bilateral, Pinpoint: bilateral, Mid position: bilateral, Sluggish: bilateral and Fixed/non-reactive: bilateral Psych: COMMON NORMALS: mental status grossly normal, Normal thought process present, cooperative, normal affect, speech normal, activity/motor behavior normal, denies hallucinations, denies homicidal ideation and denies suicidal ideation Skin: COMMON NORMALS: no rashes or lesions noted, no wounds, turgor normal, no jaundice, no petechiae and no mottling GENERAL SKIN EXAM: no rashes or lesions noted Urinary Catheter Management: Azevedo: Cath Placed During This Visit: yes Urinary Catheter Date of Insertion: 11/30/21 Urinary Catheter Time of Insertion: 02:15 Data : 11/30/21 01:00 11/29/21 23:31 Micro: Microbiology 11/30/21 02:45 Blood Culture - Preliminary Blood SPECIMEN COLLECTED 11/29/21 23:48 Blood Culture - Preliminary Blood SPECIMEN COLLECTED A&P Assessment and plan (1) Altered mental status: Status: Acute Qualifiers: Altered mental status type: unspecified Qualified Code(s): R41.82 - Altered mental status, unspecified Plan Dyspnea secondary to pneumonia and COPD exacerbation Query pneumonia. Blood culture ?2 pending. Is at the mycin 500 Mill grams IV daily plus Rocephin 1 g IV daily plus DuoNeb every 4 hours plus IV normal saline at 75 ML's per hour COPD, O2 dependent 3.5-4 L. DuoNeb every 4 hours plus Solu-Medrol 6 mg IV every 8 hours Coagulopathy. Will monitor PT/INR periodically Chronic pain BPH Depression Anxiety History of lung cancer, status post lower left lobectomy, status post chemotherapy, status post radiation therapy. Outpatient follow-up with hematology/oncology upon discharge History of renal cell carcinoma, status post left nephrectomy. Patient did not require chemotherapy or radiation therapy. The patient is in remission for this medical condition and that does not require to be monitored by for this medical condition Anemia. The emergency department physician has informed me that he is ordered 1 unit of packed red blood cells for transfusion on the morning of November 30, 2021. Check serum ferritin, iron panel, fecal occult blood. CBC every 6 hours Hyperlipidemia Hypertension History of DVT/PE GI prophylaxis. Protonix 40 Mill grams by mouth daily DVT Proflex is. Bilateral SCD Attestations Medical Necessity Statement*: The patient requires hospitalization for this medical condition Coding Level of Care Code Acute Flight Radio Operator for Manny Blank Diagnoses Altered mental status R41.82 Altered mental status type: unspecified
[2021-11-30] MEDS: ipratropium-albuterol 3 mL Neb INHALATION ×6 (04:10→23:37)
[2021-11-30] MEDS: sodium chloride 0.45% 1,000 ML 75 ML IV (04:13)
[2021-11-30] MEDS: azithromycin 500 MG in sodium chloride 0.9% 250 ML 250 MG IV (04:18)
[2021-11-30] MEDS: cefTRIAXone 1,000 MG in sodium chloride 0.9% (plus) 50 ML 100 MG IV (04:22)
[2021-11-30 04:36] LABS: Basophils % 0.1 %; Eosinophils % 0.2 %; Hematocrit 22.5 % (42.0-52.0); Lymphocytes # 0.9 10^3/uL (0.8-4.8); Lymphocytes % 3.5 %; Mean Corpuscular HGB Conc 27.6 g/dL (30.0-36.0); Mean Corpuscular Hemoglobin 25.7 pg (28.0-34.0); Mean Corpuscular Volume 93.4 fl (80-94); Mean Platelet Volume 10.6 fL (7.4-10.4); Monocytes # 1.7 10^3/uL (0.2-0.9); Monocytes % 6.8 %; Neutrophils # 21.82 10^3/uL (1.8-7.7); Neutrophils % 88.6 %; Nucleated Red Blood Cells % 0 %; Platelet Count 215 10^3/cmm (130-400); Red Blood Count 2.41 10^6/uL (4.1-5.3); Red Cell Distribution Width 18.1 % (12.1-15.1); White Blood Count 24.6 10^3/uL (4.0-10.0)
[2021-11-30] MEDS: sodium chloride 0.9% 100 ML IV (04:43)
[2021-11-30 04:51] LABS: Hemoglobin 6.2 g/dL (11.7-16.6)
[2021-11-30] MEDS: sodium chloride 0.9% (100 ml) 100 ML (04:58)
--- NOTE | 2021-11-30 04:58 | PC.NURSE ---
Patient arrived to ICU from ED. Patient is alert and orientated. bedside.
[2021-11-30 05:28] LABS: Iron 9 ug/dL (59-158); Percent Saturation 7.9 % (20-50); Total Iron Binding Capacity 113 mcg/dl; Unsaturated Iron Binding 104 ug/dL (112-347)
--- NOTE | 2021-11-30 05:35 | PC.NURSE ---
Called to update Dr plastic tubing insulation supervisor on patients hemoglobin results before transfusion received orders to redraw hemoglobin 30 minutes after transfusion is complete.
[2021-11-30 05:51] LABS: Ferritin 1358 ng/mL (30-400)
[2021-11-30 07:31] LABS: Glucose Point of Care 140 mg/dL (70-110)
--- NOTE | 2021-11-30 07:37 | PC.NURSE ---
Patient pale and diaphoretic, Glucose 140, Temp 97.7. Period of bradycardia now resolved.
[2021-11-30] MEDS: pantoprazole DR 40 mg Tablet PO (08:30)
[2021-11-30] MEDS: escitalopram 10 mg Tablet PO (08:30)
--- NOTE | 2021-11-30 09:46 | ECG_ITS ---
[facility] Test Date: 2021-11-30 Pat Name: Néstor Orozco Department: Room: ICU03 Gender: Male Reception Centre Manager: : 1955 Requested By: Zak Cruz Order Number: [id number] Jassi MD: Ramon Adams M.D. Measurements Intervals [place] Rate: 58 P: 58 SD: 231 QRS: 68 QRSD: 154 T: 42 QT: 456 QTc: 452 Interpretive Statements SINUS BRADYCARDIA WITH FIRST DEGREE AV BLOCK INTRAVENTRICULAR CONDUCTION DELAY [130+ ms QRS DURATION] Compared to ECG 11/30/2021 03:09:45 First degree AV block now present Intraventricular conduction delay now present Sinus rhythm no longer present Right bundle-branch block no longer present Electronically Signed On 11-30-2021 16:00:17 METAL FLOORING INSTALLER by Ramon Adams M.D. [id number]
[2021-11-30 10:35] LABS: Hematocrit 26.4 % (42.0-52.0); Hemoglobin 7.6 g/dL (11.7-16.6)
--- NOTE | 2021-11-30 10:38 | PC.CHAP ---
Pastoral Care Encounter/Spiritual Assessment Type of Contact [] Declined information technology security manager visit [] Patient/Family/Request visit [] Outpatient visit [] Follow-up visit [] Physician referral [] Code/Alert [x] Routine visit [] Staff referral [] Actively dying [] Patient sleeping [x] Family support [] [] Out of room [] Palliative care [] [] Receiving care in room [] Pre-surgical visit [] Trauma [] Long length of stay [x] ICU visit [] Other: Relational/Emotional Strength [] Patient feels connected with others/family/visitors/staff [] Distress [] Loneliness/isolation [] Abandonment Spirituality of Patient [] Person of Nela [] Attends Jehovah'S Witness of their Nela [] Believes in Prayer [] Reads Bible or Presybeterian materials [] There are Spiritual issues to be addressed Refrigeration Manager Interventions [x] Prayer [x] Active listening [x] Non-anxious presence [x] Spiritual/emotional support [] Crisis/trauma care [] Spiritual counseling [] Bereavement support [] Provided bereavement packet [] Provided Bible/devotional materials [] Provided toy/stuffed animal, coloring book to patient or family member [] Provided Communion [] Anointing/[place] [] Salvation [x] Completed spiritual assessment [] Other: Impact on Illness or Injury [] Angry [] Fearful [] Anxious [] Often cries [] Exhaustion [] Unable to work [] Unable to attend restorationism [] Unable to walk/stand [] Unable to read [] Unable to drive [] Unable to eat/drink [] Unable to sleep [] Unable to be with family [] Patient intubated [] Other: Summary patient resting well... Time spent with patient 10 min
[2021-11-30 12:43] LABS: Basophils % 0.2 %; Hematocrit 27.9 % (42.0-52.0); Lymphocytes # 0.4 10^3/uL (0.8-4.8); Lymphocytes % 2.1 %; Mean Corpuscular HGB Conc 28.7 g/dL (30.0-36.0); Mean Corpuscular Hemoglobin 26.3 pg (28.0-34.0); Mean Corpuscular Volume 91.8 fl (80-94); Monocytes # 0.2 10^3/uL (0.2-0.9); Monocytes % 0.9 %; Neutrophils # 19.21 10^3/uL (1.8-7.7); Neutrophils % 96.2 %; Nucleated Red Blood Cells % 0 %; Platelet Count 209 10^3/cmm (130-400); Red Blood Count 3.04 10^6/uL (4.1-5.3); Red Cell Distribution Width 18.1 % (12.1-15.1)
[2021-11-30] MEDS: norepinephrine 8 MG in dextrose 5 % 500 ML 7.62 MG IV (13:36)
--- NOTE | 2021-11-30 16:05 | ECG_ITS ---
[facility] Test Date: 2021-11-30 Pat Name: Néstor Orozco Department: Room: ICU03 Gender: Male Career Development Coordinator: : 1955 Requested By: Zak Cruz Order Number: [id number] Jassi MD: Ramon Adams M.D. Measurements Intervals [place] Rate: 43 P: 33 AL: 215 QRS: 43 QRSD: 161 T: 31 QT: 515 QTc: 436 Interpretive Statements SINUS BRADYCARDIA WITH FIRST DEGREE AV BLOCK WITH OCCASIONAL SUPRAVENTRICULAR PREMATURE COMPLEXES MOBITZ TYPE II AV BLOCK RIGHT BUNDLE BRANCH BLOCK [120+ ms QRS DURATION, UPRIGHT V1, 40+ ms S IN I/aVL/V4/V5/V6] Compared to ECG 11/30/2021 09:51:58 Right bundle-branch block now present Intraventricular conduction delay no longer present Electronically Signed On 11-30-2021 20:24:46 SUSPECT ARTIST SUPERVISOR by Ramon Adams M.D. [id number]
[2021-11-30 16:42] LABS: Magnesium 1.7 mg/dL (1.7-2.3); Thyroid Stimulating Hormone 0.81 uIU/mL (0.27-4.20)
--- NOTE | 2021-11-30 17:08 | US_ITS ---
WS: [id number] ULTRASOUND SOFT TISSUES LEFT chest. HISTORY: L side rib cage purulence, mass, assess for fluid collection COMPARISON: No recent studies. Prior chest CT 03/11/2020. TECHNIQUE: 2-D and color Doppler imaging is submitted. Ultrasound limited to the area of the LEFT lateral chest in the area of interest. There is a soft tis mukund mass which corresponds to the palpable area. Bright specular reflectors with shadowing in the adriano tral portion of the mass may be encased rib or destroyed rib. Could be focal areas of calcification. This is a solid mass with some increased vascularity. Mass measures at least 10.5 x 7.5 cm. US/US soft tissue/extremity [id number] IMPRESSION: 1. Large solid mass identified over the LEFT lateral chest in the area of clin ical interest. Mass measures 10.5 x 7.5 cm and highly suspicious for neoplasm. For further evaluation consider chest CT with IV contrast. 2. Suspect there may be encasement of a rib or calcification centrally due to the bright specular reflectors.
--- NOTE | 2021-11-30 17:10 | P.PN_ITS ---
Subjective Subjective: He is feeling better. Denies presyncope, lightheadedness, chest pain or pressure, shortness of breath. is at bedside. There is quite a bit of foul-smelling purulent drainage from left chest wall wound around the metastatic lung cancer mass due to which he is not currently on chemotherapy. Reports they normally follow with wound care clinic, change wet-to-dry dressing, cover with Telfa. His blood pressure does not normally run this low. Vitals/I&O/Wt Last Vital Signs Temp 97.7 F 11/30/21 07:30 Pulse 56 L 11/30/21 16:32 Resp 16 11/30/21 16:24 BP 105/66 11/30/21 16:00 Pulse Ox 96 11/30/21 16:24 11/30/21 11/30/21 11/30/21 06:59 14:59 22:59 Intake Total 3392.537 / 3392.537 222 / 222 Output Total 550 / 550 1000 / 1000 Balance 2842.537 / 2842.537 222 / 222 -1000 / -778 Weight last 48 hrs Weight 84.935 kg Weight 79.379 kg Physical Exam Const: COMMON NORMALS: no acute distress and patient oriented x3 HENMT: COMMON NORMALS: oropharynx normal Neck/C-Spine: COMMON NORMALS: no JVD Resp: COMMON NORMALS: normal respiratory effort and clear to auscultation bilaterally AUSCULTATION: clear to auscultation bilaterally Cardio: COMMON NORMALS: no JVD, regular rhythm, S1 normal heart sound present, S2 normal heart sound present and No murmurs present (Cardio) RHYTHM: regular rhythm HEART SOUNDS: S1 normal heart sound present and S2 normal heart sound present GI: COMMON NORMALS: Normal to inspection, nondistended, normoactive bowel sounds present, Soft to palpation and non-tender PALPATION: Yes Soft to palpation Extremity: COMMON NORMALS: no joint enlargement and no pedal edema Neuro: COMMON NORMALS: patient oriented x3 and moves all extremities Skin: COMMON NORMALS: no rashes or lesions noted GENERAL SKIN EXAM: no rashes or lesions noted LESIONS: lesion noted (Left chest wall mass [id number] w 2 inferior open wounds with drainage of) Foul-smelling purulent material packed with gauze. Inferiorly area of 10 x 10 cm of tall erythema WOUNDS: Yes wounds noted drainage white and purulent, malodorous and open OTHER: Also small difficulty stage, stage IV pressure sore on sacrum with 0.5 x 0.5 cm opening Urinary Catheter Management: Azevedo: Cath Placed During This Visit: yes Reason for Continuing Indwelling Catheter: Accurate Measurement of Urinary Output in Critically Ill Patients Urinary Catheter Date of Insertion: 11/30/21 Urinary Catheter Time of Insertion: 02:15 Data : 11/30/21 12:31 11/29/21 23:31 Micro: Microbiology 11/30/21 09:35 Gram Stain - Final Tissue 11/30/21 08:54 Occult Blood (FIT) - Final Stool - Stool Aspirate 11/30/21 02:45 Blood Culture - Preliminary Blood SPECIMEN COLLECTED 11/29/21 23:48 Blood Culture - Preliminary Blood SPECIMEN COLLECTED A&P Assessment and plan (1) Sepsis: Septic shock with leukocytosis, 20,000, fever 102.7. Hypotension, given 250 mL bolus, subsequently assessed NICOM, not further fluid responsive, started on Levophed, doing well on low rate 2 mcg/min currently, anticipate should be able to wean off. Increased frequency of steroid with possible adrenal insufficiency component. Source likely pneumonia, possible wound infection with large amount of purulent foul-smelling material, some erythema inferiorly of open wound beneath me tastatic lung cancer mass of left chest wall. Assess soft tissue ultrasound of the wound for any drainable collection. Collect wound cultures. Follow-up blood cultures. Change antibiotic to cefepime, vancomycin. With hypotension held his tamsulosin, finasteride for now. Status: Acute Qualifiers: Sepsis type: sepsis due to unspecified organism (2) Anemia: Received 1 unit PBC transfusion with hemoglobin responding adequately. Eliquis on hold for now. Reports intermittent dark stools. Had a bowel movement today, not dark. Hemoccult is positive, however. Iron deficient. Discussed with him and his likely dilutional component of anemia which has been building up for a while. Will need additional assessment by EGD, colonoscopy which could be done outpatient in case has no brisk bleeding. Continue PPI. Denies NSAIDs. Status: Acute (3) Metastatic lung cancer (metastasis from lung to other site): reports stage IV metastatic lung cancer, currently chemotherapy on hold due to metastatic mass to left chest wall and open wound. Status: Acute (4) Pneumonia: Continue empiric antibiotic coverage. Follow-up blood culture. Continue oxygen support. Wean down as tolerating. Status: Acute Qualifiers: Laterality: bilateral Lung location: lower lobe of lung Pneumonia type: due to unspecified organism Qualified Code(s): J18.9 - Pneumonia, unspecified organism (5) Bradycardia: Down into 40s. Not on mickey richelle agent. Status: Acute (6) Altered mental status: Resolved Status: Acute Qualifiers: Altered mental status type: unspecified Qualified Code(s): R41.82 - Altered mental status, unspecified Plan COPD exacerbation: Continue IV steroid, frequency increased, continue to biotic is changed above. Usually O2 dependent 3.5-4 L. Pressure ulcer sacrum: Wound care, follow-up with wound care clinic after discharge Chronic pain BPH Depression Anxiety History of lung cancer, status post lower left lobectomy, status post chemotherapy, status post radiation therapy. Outpatient follow-up with hematology/oncology upon discharge History of renal cell carcinoma, status post left nephrectomy. Patient did not require chemotherapy or radiation therapy. Hyperlipidemia Hypertension History of DVT/PE GI prophylaxis. Protonix 40 Mill grams by mouth daily DVT Proflex is. Bilateral SCD Attestations Medical Necessity Statement*: Continue admission for assessment and management of septic shock, acute anemia assessment for source and organism leading to sepsis, bradycardia and gentleman with metastatic lung cancer. Critical Care Time: The high probability of a clinically significant, sudden or life threatening deterioration of the patient's hemodynamic, hematologic cardiac system(s) with septic shock, acute anemia bradycardia, required my full and direct attention, intervention and personal management. The critical care time is as shown. This time is in addition to time spent performing any reported procedures but includes the following: [x] Data and vital sign review and interpretation [x] Patient assessment, examination and intervention [x] Documentation [x] Medication orders and management Critical Care Time (min): 60 Coding Level of Care Code Acute Truck Driver'S Offsider for [facility] Abhay Diagnoses Altered mental status R41.82 Altered mental status type: unspecified Sepsis A41.9 Sepsis type: sepsis due to unspecified organism Anemia D64.9 Metastatic lung cancer (metastasis from lung to other site) C34.90 Pneumonia J18.9 Laterality: bilateral Lung location: lower lobe of lung Pneumonia type: due to unspecified organism Bradycardia R00.1
--- NOTE | 2021-11-30 17:22 | USCV_ITS ---
Néstor Orozco Age: 66 Gender: M : 1955 Exam Date: 11/30/2021 17:31 Ordering Phys: Zak Cruz MD Technologist: DORINDA Exam Location: [facility] [place] Indication: hypotension, bradycardia BP: 120 / 66 HR: 63 Rhythm: Sinus Technical Quality: Adequate MEASUREMENTS (Male / Female) Normal Values 2D ECHO LV Diastolic Diameter PLAX 4.3 cm 4.2 - 5.9 / 3.9 - 5.3 cm LV Systolic Diameter PLAX 3.2 cm IVS Diastolic Thickness 1.5 cm 0.6 - 1.0 / 0.6 - 0.9 cm IVS Systolic Thickness 1.9 cm LVPW Diastolic Thickness 1.5 cm 0.6 - 1.0 / 0.6 - 0.9 cm LVPW Systolic Thickness 1.7 cm LVOT Diameter 2.0 cm LV Ejection Fraction 2D Teich 52.7 % LV Ejection Fraction MOD 2C 60.2 % LV Ejection Fraction 2C AL 58.4 % LA Diameter 3.3 cm LA Width 3.6 cm LA Height 4.3 cm RA Width 3.1 cm RA Height 4.1 cm Aorta at Sinotubular Diameter 3.3 cm M-MODE Aortic Annulus Diameter 3.5 cm LA Ao Ratio MM 0.9 MV E Point Septal Separation 0.5 cm DOPPLER AV Peak Velocity 144.0 cm/s LVOT Peak Velocity 136.0 cm/s AV Area Cont Eq vti 2.5 cm squared AV Area Cont Eq pk 3.1 cm squared MV Peak Velocity 144.0 cm/s MV Area PHT 3.1 cm squared Mitral E to A Ratio 1.2 MV E' Velocity 69.5 cm/s Mitral E to MV E' Ratio 10.4 Mitral E to LV E' Lateral Ratio 9.8 Mitral E to LV E' Septal Ratio 11.2 TR Peak Velocity 269.0 cm/s TR Peak Gradient 28.9 mmHg TR Mean Velocity 196.8 cm/s TR Mean Gradient 16.5 mmHg TR Velocity Time Integral 78.7 cm TV Peak E Velocity 56.0 cm/s Right Atrial Pressure 3.0 mmHg Pulmonary Artery Systolic Pressu 31.9 mmHg PV Peak Velocity 131.0 cm/s RV Acceleration Time 0.1 s RV Ejection Time 0.3 s RV AcT/ET 0.5 FINDINGS Left Ventricle Normal left ventricular size and systolic function, EF 60 %. No regional wall motion abnormalities. Grade II/IV diastolic dysfunction, moderately elevated filling pressures. Right Ventricle The right ventricle is normal in size and function. Right Atrium The right atrium is normal in size. Left Atrium The left atrium is normal in size. Mitral Valve Trace mitral valve regurgitation. Aortic Valve No gross abnormalities noted Tricuspid Valve Trace to mild tricuspid valve regurgitation. Pulmonic Valve Pulmonic valve not well visualized. Pericardium Normal pericardium without effusion. Aorta Normal ascending aorta dimension. CONCLUSIONS Normal left ventricular size and systolic function, EF 60 %. No regional wall motion abnormalities. Grade II/IV diastolic dysfunction, moderately elevated filling pressures. Trace to mild tricuspid valve regurgitation. There is no pericardial effusion. There are no intracardiac masses. Compared to the previous study from 10/30/2018, there may not be a significant change Dr Deb Dorsey MD FACC (Electronically Signed) Final Date: 30 November 2021 18:19 S
[2021-11-30] MEDS: acetaminophen 325 mg Tablet 650 MG PO (17:26)
[2021-11-30] MEDS: cefepime 1,000 MG in sodium chloride 0.9% (plus) 50 ML 100 MG IV (18:31)
[2021-11-30] MEDS: vancomycin 1,250 MG/250 ML PIGGYBACK 250 MG IV (18:31)
[2021-11-30 18:32] LABS: Basophils % 0.1 %; Hematocrit 27.7 % (42.0-52.0); Lymphocytes # 0.3 10^3/uL (0.8-4.8); Lymphocytes % 1.7 %; Mean Corpuscular HGB Conc 28.9 g/dL (30.0-36.0); Mean Corpuscular Hemoglobin 26.6 pg (28.0-34.0); Mean Platelet Volume 10.5 fL (7.4-10.4); Monocytes # 0.2 10^3/uL (0.2-0.9); Monocytes % 1.1 %; Neutrophils # 17.98 10^3/uL (1.8-7.7); Neutrophils % 96.5 %; Nucleated Red Blood Cells % 0 %; Platelet Count 217 10^3/cmm (130-400); Red Blood Count 3.01 10^6/uL (4.1-5.3); Red Cell Distribution Width 18.2 % (12.1-15.1); White Blood Count 18.6 10^3/uL (4.0-10.0)
[2021-11-30] MEDS: morphine 4 mg/mL SDV 1 mL 1 MG IVP ×2 (19:33→23:23)
[2021-12-01] VITALS (61 sets, daily range): BP systolic 101–130; BP diastolic 62–80; PULSE 50–93; RESP 15–27; TEMP 36.3–36.5; O2SAT 92–100
[2021-12-01] MEDS: acetaminophen 325 mg Tablet 650 MG PO ×2 (01:59→19:07)
[2021-12-01] MEDS: azithromycin 500 MG in sodium chloride 0.9% 250 ML 250 MG IV (03:39)
[2021-12-01] MEDS: morphine 4 mg/mL SDV 1 mL 1 MG IVP ×8 (03:39→23:01)
[2021-12-01] MEDS: ipratropium-albuterol 3 mL Neb INHALATION ×6 (04:03→23:46)
[2021-12-01] MEDS: cefepime 1,000 MG in sodium chloride 0.9% (plus) 50 ML 100 MG IV ×2 (05:11→18:34)
[2021-12-01] MEDS: vancomycin 1,250 MG/250 ML PIGGYBACK 250 MG IV ×2 (05:11→19:09)
[2021-12-01 05:30] LABS: Basophils % 0.2 %; Hematocrit 26.4 % (42.0-52.0); Hemoglobin 7.7 g/dL (11.7-16.6); Lymphocytes # 0.5 10^3/uL (0.8-4.8); Lymphocytes % 2.7 %; Mean Corpuscular HGB Conc 29.2 g/dL (30.0-36.0); Mean Corpuscular Hemoglobin 26.4 pg (28.0-34.0); Mean Corpuscular Volume 90.4 fl (80-94); Mean Platelet Volume 10.2 fL (7.4-10.4); Monocytes # 0.5 10^3/uL (0.2-0.9); Monocytes % 2.9 %; Neutrophils # 17.05 10^3/uL (1.8-7.7); Neutrophils % 93.4 %; Nucleated Red Blood Cells % 0 %; Platelet Count 212 10^3/cmm (130-400); Red Blood Count 2.92 10^6/uL (4.1-5.3); Red Cell Distribution Width 18.1 % (12.1-15.1); White Blood Count 18.2 10^3/uL (4.0-10.0)
[2021-12-01 05:52] LABS: Alanine Aminotransferase 18 U/L (0-41); Albumin Level 2.4 g/dL (3.5-5.2); Alkaline Phosphatase 93 IU/L (40-130); Anion Gap 11.7 (5-19); Aspartate Amino Transferase 13 U/L (0-40); Blood Urea Nitrogen 15 mg/dL (8-23); Calcium 9.8 mg/dL (8.5-10.5); Carbon Dioxide 26 mmol/L (22-29); Chloride 106 mmol/L (98-107); Glucose 152 mg/dL (65-115); Magnesium 2.1 mg/dL (1.7-2.3); Osmolality Calculated 294 mOsm/kg (285-295); Potassium 3.7 mmol/L (3.5-5.1); Sodium 140 mmol/L (136-145); Total Bilirubin 0.2 mg/dL (0.15-1.2); Total Protein 5.4 g/dL (6.6-8.7)
[2021-12-01 05:56] LABS: INR 1.41 (0.8-1.2)
[2021-12-01] MEDS: escitalopram 10 mg Tablet PO (08:46)
[2021-12-01] MEDS: pantoprazole DR 40 mg Tablet PO (09:18)
[2021-12-01 17:33] LABS: Vancomycin Trough 14.3 ug/mL (10-15)
--- NOTE | 2021-12-01 20:25 | P.PN_ITS ---
Subjective Subjective: Today he reports he is feeling better. He denies feeling short of breath. He is having less cough. Denies chest pain or pressure. Weaned off pressor last night. We discussed results of his studies including echocardiogram, with noted grade 2 diastolic dysfunction, soft tissue ultrasound without fluid collection with noted invading chest wall mass encasing the rib or with internal calcification. Vitals/I&O/Wt Last Vital Signs Temp 97.7 F 12/01/21 19:00 Pulse 73 12/01/21 20:00 Resp 21 H 12/01/21 20:00 BP 129/75 12/01/21 20:00 Pulse Ox 96 12/01/21 20:00 12/01/21 12/01/21 12/01/21 06:59 14:59 22:59 Intake Total 978.708 / 2780.708 800 / 800 660 / 1460 Output Total 750 / 750 Balance 978.708 / 780.708 800 / 800 -90 / 710 Weight last 48 hrs Weight 81.363 kg Weight 84.935 kg Weight 79.379 kg Physical Exam Narrative: at bedside. Const: COMMON NORMALS: no acute distress and patient oriented x3 HENMT: COMMON NORMALS: oropharynx normal Neck/C-Spine: COMMON NORMALS: no JVD Resp: COMMON NORMALS: normal respiratory effort and clear to auscultation bilaterally AUSCULTATION: clear to auscultation bilaterally Cardio: COMMON NORMALS: no JVD, regular rhythm, S1 normal heart sound present, S2 normal heart sound present and No murmurs present (Cardio) RHYTHM: regular rhythm HEART SOUNDS: S1 normal heart sound present and S2 normal heart sound present GI: COMMON NORMALS: Normal to inspection, nondistended, normoactive bowel sounds present, Soft to palpation and non-tender PALPATION: Yes Soft to palpation Extremity: COMMON NORMALS: no joint enlargement and no pedal edema Neuro: COMMON NORMALS: patient oriented x3 and moves all extremities Skin: COMMON NORMALS: no rashes or lesions noted GENERAL SKIN EXAM: no rashes or lesions noted LESIONS: lesion noted (Left chest wall mass [id number] w 2 inferior open wounds with drainage of) WOUNDS: Yes wounds noted drainage white and purulent, malodorous and open OTHER: Also small difficulty stage, stage IV pressure sore on sacrum with 0.5 x 0.5 cm opening Urinary Catheter Management: Azevedo: Cath Placed During This Visit: yes Reason for Continuing Indwelling Catheter: Accurate Measurement of Urinary Ou tput in Critically Ill Patients Urinary Catheter Date of Insertion: 11/30/21 Urinary Catheter Time of Insertion: 02:15 Data : 12/01/21 04:25 12/01/21 04:25 Micro: Microbiology 11/30/21 09:35 Gram Stain - Final Tissue Wound Culture - Preliminary Gram Negative Rods Gram Negative Rods#2 11/30/21 02:45 Urine Culture - Preliminary Urine Catheterized 11/30/21 02:45 Blood Culture - Preliminary Blood NEGATIVE TO DATE 11/29/21 23:48 Blood Culture - Preliminary Blood NEGATIVE TO DATE 11/30/21 08:54 Occult Blood (FIT) - Final Stool - Stool Aspirate A&P Assessment and plan (1) Sepsis: Septic shock resolved. Sepsis improving, still leukocytosis 18,000. However, no longer febrile. No fluid collection noted at the site of purulent drainage in the wound in the left chest. Less erythema today. Pneumonia improving, less cough. Slightly lower oxygen requirement, on 4 L. Transfer orders placed for medical floor. Continue cefepime, vancomycin. Resume tamsulosin, finasteride Status: Acute Qualifiers: Sepsis type: sepsis due to unspecified organism (2) Anemia: Received 1 unit PBC transfusion with hemoglobin responding adequately. Eliquis on hold for now. Reports intermittent dark stools. Had a bowel movement today, not dark. Hemoccult is positive, however. Iron deficient. Discussed with him and his likely dilutional component of anemia which has been building up for a while. Will need additional assessment by EGD, colonoscopy which could be done outpatient in case has no brisk bleeding. Continue PPI. Denies NSAIDs. Status: Acute (3) Metastatic lung cancer (metastasis from lung to other site): reports stage IV metastatic lung cancer, currently chemotherapy on hold due to metastatic mass to left chest wall and open wound. Status: Acute (4) Pneumonia: Continue empiric antibiotic coverage. Follow-up blood culture. Continue oxygen support. Wean down as tolerating. Status: Acute Qualifiers: Laterality: bilateral Lung location: lower lobe of lung Pneumonia type: due to unspecified organism Qualified Code(s): J18.9 - Pneumonia, unspecified organism (5) Bradycardia: Resolved. Was down into 40s. Appears to have improved with discontinuation of pressor. Hypomagnesemia replaced. Not on mickey richelle agent. Status: Acute (6) Altered mental status: Resolved Status: Acute Qualifiers: Altered mental status type: unspecified Qualified Code(s): R41.82 - Altered mental status, unspecified Plan COPD exacerbation: Decrease IV steroid, frequency increased, Abx. Usually O2 dependent 3.5-4 L. Pressure ulcer sacrum: Wound care, follow-up with wound care clinic after discharge Chronic pain BPH Depression Anxiety History of lung cancer, status post lower left lobectomy, status post chemotherapy, status post radiation therapy. Outpatient follow-up with hematology/oncology upon discharge History of renal cell carcinoma, status post left nephrectomy. Patient did not require chemotherapy or radiation therapy. Hyperlipidemia Hypertension History of DVT/PE GI prophylaxis. Protonix 40 Mill grams by mouth daily DVT Proflex is. Bilateral SCD Attestations Medical Necessity Statement*: Continue admission for assessment management of pneumonia, chest wall wound infection, after improving sepsis, resolved septic shock. Coding Level of Care Code Acute Histopath Tech for [facility] Fwd Diagnoses Sepsis A41.9 Sepsis type: sepsis due to unspecified organism Anemia D64.9 Metastatic lung cancer (metastasis from lung to other site) C34.90 Pneumonia J18.9 Laterality: bilateral Lung location: lower lobe of lung Pneumonia type: due to unspecified organism Bradycardia R00.1 Altered mental status R41.82 Altered mental status type: unspecified
[2021-12-01] MEDS: finasteride 5 mg Tablet PO (21:08)
[2021-12-02] VITALS (15 sets, daily range): BP systolic 126–148; BP diastolic 70–83; PULSE 55–64; RESP 16–20; TEMP 36.3–36.8; O2SAT 88–98
--- NOTE | 2021-12-02 00:20 | PC.NURSE ---
i reported to nurse low pulse 58
[2021-12-02] MEDS: morphine 4 mg/mL SDV 1 mL 1 MG IVP ×4 (01:12→10:49)
[2021-12-02] MEDS: ALPRAZolam 0.5 mg Tablet 0.25 MG PO (03:02)
[2021-12-02] MEDS: ipratropium-albuterol 3 mL Neb INHALATION ×2 (03:22→07:48)
[2021-12-02] MEDS: azithromycin 500 MG in sodium chloride 0.9% 250 ML 250 MG IV (04:14)
[2021-12-02 05:07] LABS: Basophils % 0.1 %; Hemoglobin 7.6 g/dL (11.7-16.6); Lymphocytes # 0.5 10^3/uL (0.8-4.8); Lymphocytes % 3.1 %; Mean Corpuscular HGB Conc 29.2 g/dL (30.0-36.0); Mean Corpuscular Hemoglobin 26.3 pg (28.0-34.0); Mean Platelet Volume 10.5 fL (7.4-10.4); Monocytes # 0.6 10^3/uL (0.2-0.9); Monocytes % 3.4 %; Neutrophils # 15.17 10^3/uL (1.8-7.7); Neutrophils % 92.5 %; Nucleated Red Blood Cells % 0 %; Platelet Count 223 10^3/cmm (130-400); Red Blood Count 2.89 10^6/uL (4.1-5.3); Red Cell Distribution Width 17.9 % (12.1-15.1); White Blood Count 16.4 10^3/uL (4.0-10.0)
[2021-12-02 05:27] LABS: Alanine Aminotransferase 12 U/L (0-41); Albumin Level 2.4 g/dL (3.5-5.2); Alkaline Phosphatase 82 IU/L (40-130); Anion Gap 14.8 (5-19); Aspartate Amino Transferase 9 U/L (0-40); Blood Urea Nitrogen 18 mg/dL (8-23); Calcium 10.4 mg/dL (8.5-10.5); Carbon Dioxide 24 mmol/L (22-29); Chloride 103 mmol/L (98-107); Glomerular Filtration Rate 165.4 mL/min (90-130); Glucose 122 mg/dL (65-115); Osmolality Calculated 289 mOsm/kg (285-295); Potassium 3.8 mmol/L (3.5-5.1); Sodium 138 mmol/L (136-145); Total Bilirubin 0.2 mg/dL (0.15-1.2); Total Protein 5.4 g/dL (6.6-8.7)
[2021-12-02] MEDS: cefepime 1,000 MG in sodium chloride 0.9% (plus) 50 ML 100 MG IV (05:34)
[2021-12-02] MEDS: vancomycin 1,250 MG/250 ML PIGGYBACK 250 MG IV (06:03)
[2021-12-02] MEDS: acetaminophen 325 mg Tablet 650 MG PO (07:22)
[2021-12-02] MEDS: pantoprazole DR 40 mg Tablet PO (10:27)
[2021-12-02] MEDS: tamsulosin 0.4 mg Capsule PO (10:27)
[2021-12-02] MEDS: predniSONE 20 mg Tablet PO (10:27)
[2021-12-02] MEDS: escitalopram 10 mg Tablet PO (10:27)
[2021-12-02] MEDS: oxyCODONE IR 30 mg Tablet 15 MG PO (13:18)
--- NOTE | 2021-12-02 15:36 | PC.OT ---
Patient set to discharge
[2021-12-02] MEDS: morphine ER (12 HR) 30 mg tablet PO (16:03)
--- NOTE | 2021-12-02 22:15 | PM.DCS ---
Discharge Providers Date of Admission: 11/30/21 02:34 Date of Discharge: December 02, 2021 Attending Provider at Admission: Melvin Liu DO Attending Provider at Discharge: Zak Cruz Primary Care Provider: Mikael Gibson DO Diagnoses at Discharge Discharge Diagnosis (1) Sepsis: Status: Acute Qualifiers: Sepsis type: sepsis due to unspecified organism (2) Anemia: Status: Acute (3) Metastatic lung cancer (metastasis from lung to other site): Status: Acute (4) Pneumonia: Status: Acute Qualifiers: Laterality: bilateral Lung location: lower lobe of lung Pneumonia type: due to unspecified organism Qualified Code(s): J18.9 - Pneumonia, unspecified organism (5) Bradycardia: Status: Acute (6) Altered mental status: Status: Acute Qualifiers: Altered mental status type: unspecified Qualified Code(s): R41.82 - Altered mental status, unspecified Reason for Visit Reason for Visit: AMS Hospital Course Hospital Course Pleasant 58-year-old woman with metastatic lung cancer, with left-sided chest wall large mass, with inferior wound following with wound care clinic, also for sacral pressure ulcer, otherwise with remote history of renal cancer, also with BPH, A. fib, COPD, depression, anxiety, anemia, HTN, HLD, other comorbidities was admitted for assessment management of AMS, on presentation with finding of pneumonia, possible left chest wall left chest wall purulent drainage with wound infection. With sepsis and septic shock. With COPD sedation, possible adrenal sufficiency was also on steroid. Partial response to IV fluids, but still subsequently hypotensive, required transient pressor support with Levophed. Initial antibiotics broadened to cefepime, vancomycin. Received 1 unit PRBC transfusion due to anemia with hemoglobin down to 6.2. With good response. Hemoccult found positive, reports recently intermittent melanotic stools. He was continued on PPI. Septic shock gradually resolved. Hemoglobin stabilized. Oxygenation gradually improved, he weaned down to 3.5-4 L of oxygen by nasal cannula. He was feeling much more comfortable. Noted few episodes of asymptomatic bradycardia down into 50s. He was bothered by some pain at the left chest wall wound. Wound was assessed by ultrasonography without finding of deep abscess or fluid collection. Wound care was continued for both wounds. At discharge she will complete antibiotic course with Levaquin for pneumonia, culture from left chest wall wound growing Citrobacter and Pseudomonas sensitive to Levaquin. He will complete prednisone taper. Continues on PPI. Lidocaine jelly added for symptomatic relief and left chest wall wound/mass. Continues otherwise on his usual pain medication. He will be following up with his cancer doctor. His chemotherapy has been on hold due to the wounds. His states they were due to follow-up to discuss further steps in management of the metastatic cancer. Hospice has not yet been consideration, but she realizes that this may come up. Palliative care would be a consideration if available. Please follow-up blood counts at next visit. Discuss additional endoscopic evaluation of anemia with Hemoccult-positive stool. Discussed in phone call with his after discharge to discontinue Eliquis for now until further discussion with primary provider. Physical Exam Narrative: He is in good spirits. Sitting up in chair. Reports he is feeling well. Feels good about going home. Const: COMMON NORMALS: no acute distress and patient oriented x3 HENMT: COMMON NORMALS: oropharynx normal Neck/C-Spine: COMMON NORMALS: no JVD Resp: COMMON NORMALS: normal respiratory effort and clear to auscultation bilaterally AUSCULTATION: clear to auscultation bilaterally Cardio: COMMON NORMALS: no JVD, regular rhythm, S1 normal heart sound present, S2 normal heart sound present and No murmurs present (Cardio) RHYTHM: regular rhythm HEART SOUNDS: S1 normal heart sound present and S2 normal heart sound present GI: COMMON NORMALS: Normal to inspection, nondistended, normoactive bowel sounds present, Soft to palpation and non-tender PALPATION: Yes Soft to palpation Extremity: COMMON NORMALS: no joint enlargement and no pedal edema Neuro: COMMON NORMALS: patient oriented x3 and moves all extremities Skin: COMMON NORMALS: no rashes or lesions noted GENERAL SKIN EXAM: no rashes or lesions noted LESIONS: lesion noted (Left chest wall mass [id number] w 2 inferior open wounds with drainage of) WOUNDS: Yes wounds noted drainage white and purulent, malodorous and open OTHER: Also small difficulty stage, stage IV pressure sore on sacrum with 0.5 x 0.5 cm opening Urinary Catheter Management: Azevedo: Cath Placed During This Visit: yes, but has since been removed by the nurse Reason for Continuing Indwelling Catheter: Decision to DC Catheter Urinary Catheter Date of Insertion: 11/30/21 Urinary Catheter Time of Insertion: 02:15 Date Urinary Catheter Removed: 12/02/21 Time Urinary Catheter Discontinued: 16:00 Discharge Data Studies Completed and Pending Completed Studies During Hospitalization Category Date Time Status CT head wo con* [id number] Urgent Cat Scan 11/30/21 00:13 Completed CXRP [XR chest 1V portable [id number]] Stat Exams 11/30/21 00:56 Completed CV. echo complete* [id number] Routine Ultrasound 11/30/21 17:22 Completed US soft tissue and or extremity [US soft tissue/ Ultrasound 11/30/21 17:08 Completed extremity [id number]] Routine Pending at discharge Category Date Time Status Blood Culture Stat Lab 11/30/21 02:45 Results Radiology Impressions Head CT 11/30/21 00:13 IMPRESSION: No acute intracranial abnormality. Chest X-Ray 11/30/21 00:56 IMPRESSION: 1. Stable right Mediport catheter. 2. Mild bibasilar atelectasis and/or pneumonia. Soft Tissue Ultrasound 11/30/21 17:08 IMPRESSION: 1. Large solid mass identified over the LEFT lateral chest in the area of clinical interest. Mass measures 10.5 x 7.5 cm and highly suspicious for neoplasm. For further evaluation consider chest CT with IV contrast. 2. Suspect there may be encasement of a rib or calcification centrally due to the bright specular reflectors. Laboratory Results WBC 16.4 10^3/uL (4.0-10.0) H 12/02/21 04:20 RBC 2.89 10^6/uL (4.1-5.3) L 12/02/21 04:20 Hgb 7.6 g/dL (11.7-16.6) L 12/02/21 04:20 Hct 26.0 % (42.0-52.0) L 12/02/21 04:20 MCV 90.0 fl (80-94) 12/02/21 04:20 MCH 26.3 pg (28.0-34.0) L 12/02/21 04:20 MCHC 29.2 g/dL (30.0-36.0) L 12/02/21 04:20 RDW 17.9 % (12.1-15.1) H 12/02/21 04:20 Plt Count 223 10^3/cmm (130-400) 12/02/21 04:20 MPV 10.5 fL (7.4-10.4) H 12/02/21 04:20 Neut % (Auto) 92.5 % 12/02/21 04:20 Lymph % (Auto) 3.1 % 12/02/21 04:20 [place] % (Auto) 3.4 % 12/02/21 04:20 Eos % (Auto) 0.0 % 12/02/21 04:20 Baso % (Auto) 0.1 % 12/02/21 04:20 Neut # (Auto) 15.17 10^3/uL (1.8-7.7) H 12/02/21 04:20 Lymph # (Auto) 0.5 10^3/uL (0.8-4.8) L 12/02/21 04:20 [place] # (Auto) 0.6 10^3/uL (0.2-0.9) 12/02/21 04:20 Eos # (Auto) 0.0 10^3/uL (0.0-0.8) 12/02/21 04:20 Baso # (Auto) 0.0 10^3/uL (0.0-0.1) 12/02/21 04:20 Nucleated RBC % (auto) 0 % 12/02/21 04:20 Nucleated RBCs # 0.0 /100WBC 12/02/21 04:20 PT 17.60 SECONDS (12.1-14.9) H 12/01/21 04:25 INR 1.41 (0.8-1.2) H 12/01/21 04:25 Specimen Type Arterial 11/30/21 02:13 Sample Site Brachial, right 11/30/21 02:13 ABG pH 7.42 (7.35-7.45) 11/30/21 02:13 ABG pCO2 40.8 mmHg (35-45) 11/30/21 02:13 ABG pO2 76.2 mmHg (80.0-100.0) L 11/30/21 02:13 ABG HCO3 26.2 mmol/L (22-26) H 11/30/21 02:13 ABG Base Excess 1.5 mmol/L (-2.0-2.0) 11/30/21 02:13 Prabhjot Test Pos 11/30/21 02:13 Hematocrit 23.1 % (42-52) L 11/30/21 02:13 O2 Delivery Device Nc 11/30/21 02:13 O2 Liters/Min 3.5 % 11/30/21 02:13 Computer Technology Trainer ID Sai 11/30/21 02:13 Sodium 138 mmol/L (136-145) 12/02/21 04:20 Potassium 3.8 mmol/L (3.5-5.1) 12/02/21 04:20 Chloride 103 mmol/L (98-107) 12/02/21 04:20 Carbon Dioxide 24 mmol/L (22-29) 12/02/21 04:20 Anion Gap 14.8 (5-19) 12/02/21 04:20 BUN 18 mg/dL (8-23) 12/02/21 04:20 Creatinine 0.5 mg/dL (0.7-1.2) L 12/02/21 04:20 GFR Calculation 165.4 mL/min (90-130) H 12/02/21 04:20 Glucose 122 mg/dL (65-115) H 12/02/21 04:20 POC Glucose 140 mg/dL (70-110) H 11/30/21 07:27 Calculated Osmolality 289 mOsm/kg (285-295) 12/02/21 04:20 Lactic Acid 1.7 mmol/L (0.5-2.2) 11/29/21 23:48 Calcium 10.4 mg/dL (8.5-10.5) 12/02/21 04:20 Magnesium 2.1 mg/dL (1.7-2.3) 12/01/21 04:25 Iron 9 ug/dL (59-158) L 11/30/21 04:08 TIBC 113 mcg/dl 11/30/21 04:08 % Saturation 7.9 % (20-50) L 11/30/21 04:08 Unsat Iron Binding 104 ug/dL (112-347) L 11/30/21 04:08 Ferritin 1358 ng/mL (30-400) H 11/30/21 04:08 Total Bilirubin 0.2 mg/dL (0.15-1.2) 12/02/21 04:20 AST 9 U/L (0-40) 12/02/21 04:20 ALT 12 U/L (0-41) 12/02/21 04:20 Alkaline Phosphatase 82 IU/L (40-130) 12/02/21 04:20 Total Protein 5.4 g/dL (6.6-8.7) L 12/02/21 04:20 Albumin 2.4 g/dL (3.5-5.2) L 12/02/21 04:20 Globulin 3.0 g/dL (1.3-4.6) 12/02/21 04:20 Lipase 6 U/L (13-60) L 11/29/21 23:31 TSH 0.81 uIU/mL (0.27-4.20) 11/30/21 04:08 Urine Color Yellow (Yellow) 11/30/21 02:45 Urine Appearance Clear (CLEAR) 11/30/21 02:45 Urine pH 5 (5-7) 11/30/21 02:45 Ur Specific [place] 1.025 (1.005-1.030) 11/30/21 02:45 Urine Protein Neg (Negative) 11/30/21 02:45 Urine Glucose (UA) Norm (Normal) 11/30/21 02:45 Urine Ketones Negative (Negative) 11/30/21 02:45 Urine Blood Neg (Negative) 11/30/21 02:45 Urine Nitrate Negative (Negative) 11/30/21 02:45 Urine Bilirubin Neg (Negative) 11/30/21 02:45 Urine Urobilinogen 4 mg/dL (Negative) H 11/30/21 02:45 Ur Leukocyte Esterase Negative (Negative) 11/30/21 02:45 Vancomycin Trough 14.3 ug/mL (10-15) 12/01/21 16:55 Influenza Type A Ag Negative (Negative) 11/30/21 02:45 Influenza Type B Ag Negative (Negative) 11/30/21 02:45 SARS-CoV-2 Ag (Rapid) Negative (Negative) 11/30/21 01:31 Blood Type A Positive 11/30/21 02:45 Rho(D) Type Positive 11/30/21 02:45 Antibody Screen Negative 11/30/21 02:45 Crossmatch See Detail 11/30/21 02:45 Vitals Last Vital Signs Temp 97.4 F L 12/02/21 15:54 Pulse 64 12/02/21 15:54 Resp 17 12/02/21 16:30 BP 140/83 12/02/21 15:54 Pulse Ox 97 12/02/21 16:30 Discharge Plan Discharge Patient Disposition: Home Health Service Condition: Stable Prescriptions: New levofloxacin 750 mg tablet 750 mg PO DAILY 5 Days Qty: 5 0RF lidocaine HCl 2 % Jelly 1 applic topical PRN PRN (Reason: pain) Qty: 30 0RF prednisone 5 mg tablet See Rx Instructions .ROUTE .COMPLEX Qty: 11 0RF Rx Instructions: 2 tab for 3 days, then 1 tab for 3 days, then 1/2 tab for 4 days. pantoprazole 40 mg Tablet,Delayed Release (Dr/Ec) 40 mg PO BIDWM Qty: 84 0RF ferrous sulfate 325 mg (65 mg iron) tablet 325 mg PO EVERY OTHER DAY Qty: 90 0RF Continued escitalopram oxalate 10 mg tablet 10 mg PO QAM 0RF albuterol sulfate [Ventolin HFA] 90 mcg/actuation HFA aerosol inhaler 2 puff INHALATION Q6H PRN (Reason: Shortness Of Breath) 0RF acetaminophen [Tylenol Arthritis Pain] 650 mg tablet extended release 1,300 mg PO BID PRN (Reason: Pain) 0RF finasteride 5 mg tablet See Rx Instructions .ROUTE .COMPLEX Qty: 90 3RF Dose Instruction: TAKE 1 TABLET DAILY Rx Instructions: TAKE 1 TABLET DAILY tamsulosin 0.4 mg capsule See Rx Instructions .ROUTE .COMPLEX Qty: 180 3RF Dose Instruction: TAKE 2 CAPSULES ONCE DAILY Rx Instructions: TAKE 2 CAPSULES PO BEDTIME morphine 30 mg Tablet Extended Release 30 mg PO BID PRN (Reason: Pain) 0RF oxycodone 15 mg Tablet 15 mg PO Q4H PRN (Reason: Pain) 0RF alprazolam 0.25 mg Tablet 0.25 mg PO BID 0RF fluticasone propion-salmeterol [Advair Diskus] 500-50 mcg/dose Blister With Device 1 ea INHALATION QAM 0RF polyethylene glycol 3350 [Miralax] 17 gram/dose Powder 17 g PO QAM 0RF Rx Instructions: MIXES IN JUICE Discontinued Eliquis 5 mg tablet 5 mg PO BID 0RF Discharge Orders: Discharge Order (Routine); Ordered 12/02/21 Ordered By: Zak Cruz Referrals: Wound Care [Provider Group] - 12/12/21 1:45 pm (prior made appointment ) Mikael Gibson, DO [Primary Care Provider] - 4-7 days (Dr. Gibson's office will call with appointment ) Discharge Diet: Cardiac Discharge Activity: Increase activity as tolerated Patient Instructions: Iron Supplements (By mouth), Lidocaine (On the skin), Levofloxacin (By mouth), Prednisolone (By mouth), Pantoprazole (By mouth), Bacterial Pneumonia (GEN), Opioid Safety Activity Restrictions/Additional Instructions: Complete intermittent course for pneumonia, COPD exacerbation. Complete steroid taper, monitor blood pressures at home due to concern also for adrenal insufficiency on presentation the hospital. Her blood pressures have been better in the hospital, but if are becoming low (less than 90 top number or less than 50 bottom number) please make sure to seek medical attention. If blood pressures are lower than 100 top number or 60 bottom number take double dose of prednisone and contact your primary doctor. Prednisone taper may need to be extended in case blood pressures remain soft. Continue wound care for wounds of the left chest with metastatic cancer mass and follow-up with wound care clinic. Perform wound care as per wound care instructions. Continue wound care for sacral pressure wound. With bleeding daily, Hydrofera Blue, covering with foam dressing, or as instructed by wound care clinic. Reposition frequently. Follow-up with your cancer doctor and discuss further plans. Discuss palliative care versus hospice care. Please have your primary doctor follow-up regarding anemia, recheck blood counts at next visit. Continue acid richelle medication. There was hidden blood in your stool. Please arrange with your primary doctor additional assessment by endoscopic evaluation, depending on goals of care. Avoid any NSAIDs like ibuprofen, Aleve, etc. Discharge Attestations Time Spent in Discharge Care*: greater than 30 min Quality Metrics Clinical Quality Measures [ No reported AMI, CVA or VTE this stay] Coding Level of Care Code Acute Chg FW DC note Diagnoses Sepsis A41.9 Sepsis type: sepsis due to unspecified organism Anemia D64.9 Metastatic lung cancer (metastasis from lung to other site) C34.90 Pneumonia J18.9 Laterality: bilateral Lung location: lower lobe of lung Pneumonia type: due to unspecified organism Bradycardia R00.1 Altered mental status R41.82 Altered mental status type: unspecified
== END 2021-12-02 16:30 | disposition home health service (06) | DRG 871 ==
LOC: ER 11-30 02:39 → ICU 11-30 02:56 → MEDSURG 12-01 22:39
PROVIDERS: Admitting Provider Internal Medicine; Emergency Provider Emergency Medicine; PCP Electrodiagnostic Medicine; Visit Provider Internal Medicine
DX: A41.9 Sepsis, unspecified organism (principal); J18.9 Pneumonia, unspecified organism; R65.21 Severe sepsis with septic shock; G93.40 Encephalopathy, unspecified; J44.1 Chronic obstructive pulmonary disease with (acute) exacerbation; C34.92 Malignant neoplasm of unspecified part of left bronchus or lung; E27.40 Unspecified adrenocortical insufficiency; C79.89 Secondary malignant neoplasm of other specified sites; S21.102A Unspecified open wound of left front wall of thorax without penetration into thoracic cavity, initial encounter; Z85.528 Personal history of other malignant neoplasm of kidney; N40.1 Benign prostatic hyperplasia with lower urinary tract symptoms; Z90.5 Acquired absence of kidney; Z87.891 Personal history of nicotine dependence; I95.9 Hypotension, unspecified; Z99.81 Dependence on supplemental oxygen; G89.29 Other chronic pain; F41.8 Other specified anxiety disorders; Z90.2 Acquired absence of lung [part of]; Z92.21 Personal history of antineoplastic chemotherapy; Z92.3 Personal history of irradiation; Z79.891 Long term (current) use of opiate analgesic; Z79.51 Long term (current) use of inhaled steroids; I48.91 Unspecified atrial fibrillation; D50.9 Iron deficiency anemia, unspecified; L89.159 Pressure ulcer of sacral region, unspecified stage; X58.XXXA Exposure to other specified factors, initial encounter
CPT/HCPCS: 11042; 36415; 36416; 36430; 36591; 51702; 70450; 71045; 76882; 80053; 80202; 81003; 82274; 82728; 82803; 82962; 83540; 83550; 83605; 83690; 83735; 84443; 85014; 85018; 85025; 85610; 86850; 86900; 86920; 87040; 87070; 87075; 87077; 87086; 87186; 87205; 87426; 87804; 93005; 93306; 94640; 94664; 96365; 96367; 96375; 97110; 97116; 97161; 97166; 97597; 99285; A6212; A6219; J0456; J0692; J0696; J2270; J2405; J2543; J2930; J3370; J3475; J7030; J7050; J7512; P9016

== ENCOUNTER 2021-12-12 13:28 | Outpatient (CLI) | payer MEDICARE, SELFPAY | END 2021-12-12 13:29 | disposition home or self-care (01) | LOC: WOUND 13:32 | PROVIDERS: PCP Electrodiagnostic Medicine; Visit Provider Thoracic Surgery (Cardiothoracic Vascular Surgery) | DX: I96 Gangrene, not elsewhere classified (principal); T81.31XA Disruption of external operation (surgical) wound, not elsewhere classified, initial encounter; Y83.8 Other surgical procedures as the cause of abnormal reaction of the patient, or of later complication, without mention of misadventure at the time of the procedure; S21.102D Unspecified open wound of left front wall of thorax without penetration into thoracic cavity, subsequent encounter; X58.XXXD Exposure to other specified factors, subsequent encounter | CPT/HCPCS: 11042; 11045; 97597; A6219 ==

== ENCOUNTER 2021-12-19 11:16 | Inpatient (IN) | payer MEDICARE, SELFPAY ==
[2021-12-19] VITALS (10 sets, daily range): BP systolic 95–118; BP diastolic 63–77; PULSE 81–94; RESP 16–20; TEMP 36.6–36.9; O2SAT 96–98; BMI 25.1
--- NOTE | 2021-12-19 11:21 | ED_ITS ---
HPI - Weakness General: Chief complaint: General Medical Stated complaint: general weakness Time Seen by Provider: 12/19/21 11:21 Limitations: altered mental status History of Present Illness: Mr. Orozco is a 66-year-old gentleman with complex past medical history including metastatic lung cancer with left-sided chest wall large mass, chronic inferior wound following with wound care clinic, sacral pressure ulcer, remote history of renal cancer, A. fib, COPD, depression, anxiety, anemia, HTN, HLD who presents to the emergency department due to cough and generalized weakness. The patient has had a longstanding history of similar and recent hospitalization from 11/30 through 12/02 for pneumonia sepsis with septic shock. Symptoms have waxed and waned since hospital discharge however were notably worse this morning. He endorses cough and generalized malaise. Weakness is nonfocal. Intensity is moderate. Course has persisted. This is similar to his presentation prior to most recent hospitalization. Initially patient provided limited history however upon patient's arrival in the room supplement history is provided. Patient is still holding Eliquis. No other specific changes in health, exacerbating, or alleviating factors identified. Onset (ago): day(s) Duration: progressively worsening Location: generalized Severity: moderate Context: other Review of Systems General: Reports: 10 or more systems reviewed and unremarkable except in HPI and below (Limited reliability from patient, supplemented by patient's ) [facility] ED PFSH: Medical History (Updated 12/19/21 @ 17:02 by Ethan Garcia MD) Anemia BPH loc w urin obs/LUTS Chronic prostatitis Chronic respiratory failure with hypoxia Diastolic CHF with preserved left ventricular function, NYHA class 2 Elevated PSA Mass of left chest wall Metastatic lung cancer (metastasis from lung to other site) Pulmonary nodule Renal cancer S/p nephrectomy Surgical History H/O hernia repair H/O prostate biopsy Previous back surgery Family History Father , AT AGE 58 Automobile accident Mother , AT AGE 89 CHF (congestive heart failure) Social History Smoking and tobacco status: former smoker Alcohol intake: never Marital status: Current occupational status: retired 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, 2 handrails in front though wide steps History of recent travel: No Physical Exam Const: COMMON NORMALS: alert GENERAL APPEARANCE: cooperative, well deve loped and ill appearing (Chronically) HENMT: COMMON NORMALS: normocephalic and atraumatic HEAD & SCALP: normocephalic and atraumatic THROAT: posterior oropharynx normal Eye: COMMON NORMALS: conjunctivae normal CONJUNCTIVA: Yes conjunctivae normal SCLERA: sclerae normal Neck/C-Spine: COMMON NORMALS: supple GENERAL: Yes trachea midline Chest: OTHER: Left lower lateral chest wall wound without obvious cellulitis Resp: COMMON NORMALS: normal respiratory effort EFFORT & INSPECTION: Yes able to speak in complete sentences AUSCULTATION: rhonchi OTHER: Cough Cardio: COMMON NORMALS: regular rate and regular rhythm RATE: regular rate RHYTHM: regular rhythm GI: COMMON NORMALS: Soft to palpation PALPATION: Yes Soft to palpation and No Tenderness to palpation present (GI) PERCUSSION: normal to percussion Extremity: GENERAL: Yes normal exam except as noted and No edema Neuro: COMMON NORMALS: CN's II-XII intact bilaterally, moves all extremities, no focal motor deficits and no sensory deficits noted SENSORIUM/ORIENTATION: Yes alert, Yes Orientation impaired and Yes somnolent Psych: COMMON NORMALS: mental status grossly normal and Normal thought process present THOUGHT PROCESS: Normal thought process present Course ED course: - Patient was seen and evaluated by me at bedside - Patient placed on cardiac monitors, IV access obtained - Initial evaluation notable for somewhat ill appearance, acute and chronic. Patient has no focal neurologic deficits however appears encephalopathic and provide somewhat limited history prior to arrival . - Labs and xrays personally interpreted by me - Fluids given - Labs notable for mild leukocytosis, hemoglobin similar to recent baseline. Metabolic panel without acute derangement to explain patient's symptoms. Delta troponin negative. BNP only trace elevated. No evidence of urinary tract infection. - Imaging notable for x-ray appears grossly similar to prior. Given high degree complexity of past medical history in addition to need for identification of possible infectious etiology CT imaging is warranted. CT notable for pneumonia and possible colitis (patient does report mild abdominal discomfort however no changes in bowel movements). - Antibiotics ordered - Upon serial reexamination after treatment the patient was mildly improved. He is uncomfortable due to chest wall/wound related pain. He is due for his oxycodone which was ordered. - Based on patient history, evaluation, and testing as interpreted the most likely cause of the patient's condition is pneumonia with SIRS criteria and mental status change/generalized weakness - The results of ED evaluation were discussed with the patient including plan for admission due to requirement for level of care not available if discharged to prevent significant worsening/deterioration. - Hospitalist service contacted and agreed to admit the patient - Patient was admitted without further deterioration or significant events. Note: Click bubbles or prepopulated benitez in note writing are used for assistance with data collection and billing and are inherently more limited than narrative and other text portions of this note. Please use narrative for additional clinical history and defer to narrative/free test for any case of contradictory information. If information appears in only free text or click bubble it should be considered present or absent as reported. Please contact note scenario writer for clarifications of clinical information or contradictory information. MDM is a brief summary, contradictory or erroneous seeming information should be clarified and full note should be reviewed. Vital Signs: Vital signs: Vital Signs Temperature 97.9 F 12/20/21 07:12 Pulse Rate 77 12/20/21 09:16 Respiratory Rate 16 12/20/21 09:22 Blood Pressure 98/60 12/20/21 07:12 Pulse Oximetry 99 12/20/21 09:22 MDM - Weakness Medical Decision Making 66-year-old gentleman with complex past medical history including recent hospitalization for septic shock presenting with generalized symptoms, cough, noisy respirations consistent with prior presentation. Patient found to have pneumonia. Given high complexity of comorbidities and general clinical appearance we will plan to admit for IV antibiotics. Medical Records I reviewed the patient's medical records. Lab Data I reviewed the patient's lab results. : 12/20/21 05:20 12/20/21 05:20 Radiology Impressions Chest X-Ray 12/19/21 11:40 IMPRESSION: Nonspecific mild bibasilar opacities, favoring atelectasis or pneumonia. This finding is stable when compared to the prior exam. Head CT 12/19/21 11:40 IMPRESSION: 1. No evidence of intracranial hemorrhage or mass effect. 2. Mild small vessel changes. Mild parenchymal volume loss. 3. Intracranial vascular calcification. 4. No acute intracranial findings. Chest/Abdomen/Pelvis CT 12/19/21 13:06 IMPRESSION: 1. No evidence of pulmonary embolus. 2. Patchy infiltrates in RIGHT lower lobe consistent with pneumonia. 3. History of prior LEFT lower lobectomy. 4. LEFT lower chest wall and upper abdominal wall soft tissue metastatic disease or recurrence with enhancing soft tissue mass. Associated erosion of the LEFT lower ribs described above. Recommend oncology evaluation for staging. 5. Enlarged LEFT retrocrural lymph node. 6. Prior LEFT nephrectomy. 7. Enlarged prostate measuring 5.1 CM. Evidence of bladder outlet obstruction. 8. Low-attenuation RIGHT lower lower pole renal lesion may represent a complex cyst but indeterminant and slightly enlarged compared to 2020. This can be followed up with ultrasound on an elective basis. 9. Soft tissue thickening involving the sigmoid colon LEFT lower quadrant with surrounding induration. Recommend correlation for diverticulitis. Suggestion of mild tethering in this area. Metastatic disease/neoplasm not excluded and recommend follow-up to resolution and/or further evaluation with colonoscopy. Notified iMc Robles MD at 12/19/2021 3:03 PM. Laboratory Results WBC 10.3 10^3/uL (4.0-10.0) H 12/19/21 12:01 RBC 3.27 10^6/uL (4.1-5.3) L 12/19/21 12:01 Hgb 8.8 g/dL (11.7-16.6) L 12/19/21 12:01 Hct 30.7 % (42.0-52.0) L 12/19/21 12:01 MCV 93.9 fl (80-94) 12/19/21 12:01 MCH 26.9 pg (28.0-34.0) L 12/19/21 12:01 MCHC 28.7 g/dL (30.0-36.0) L 12/19/21 12:01 RDW 19.1 % (12.1-15.1) H 12/19/21 12:01 Plt Count 200 10^3/cmm (130-400) 12/19/21 12:01 MPV 9.8 fL (7.4-10.4) 12/19/21 12:01 Neut % (Auto) 86.1 % 12/19/21 12:01 Lymph % (Auto) 2.0 % 12/19/21 12:01 [place] % (Auto) 9.4 % 12/19/21 12:01 Eos % (Auto) 1.9 % 12/19/21 12:01 Baso % (Auto) 0.2 % 12/19/21 12:01 Neut # (Auto) 8.83 10^3/uL (1.8-7.7) H 12/19/21 12:01 Lymph # (Auto) 0.2 10^3/uL (0.8-4.8) L 12/19/21 12:01 [place] # (Auto) 1.0 10^3/uL (0.2-0.9) H 12/19/21 12:01 Eos # (Auto) 0.2 10^3/uL (0.0-0.8) 12/19/21 12:01 Baso # (Auto) 0.0 10^3/uL (0.0-0.1) 12/19/21 12:01 Nucleated RBC % (auto) 0 % 12/19/21 12:01 Nucleated RBCs # 0.0 /100WBC 12/19/21 12:01 Sodium 137 mmol/L (136-145) 12/19/21 12:01 Potassium 4.6 mmol/L (3.5-5.1) 12/19/21 12:01 Chloride 98 mmol/L (98-107) 12/19/21 12:01 Carbon Dioxide 27 mmol/L (22-29) 12/19/21 12:01 Anion Gap 16.6 (5-19) 12/19/21 12:01 BUN 21 mg/dL (8-23) 12/19/21 12:01 Creatinine 1.1 mg/dL (0.7-1.2) 12/19/21 12:01 GFR Calculation 66.6 mL/min (90-130) L 12/19/21 12:01 Glucose 113 mg/dL (65-115) 12/19/21 12:01 Calculated Osmolality 288 mOsm/kg (285-295) 12/19/21 12:01 Calcium 12.9 mg/dL (8.5-10.5) H 12/19/21 12:01 Iron 21 ug/dL (59-158) L 12/19/21 12:01 TIBC 188 mcg/dl 12/19/21 12:01 % Saturation 11.1 % (20-50) L 12/19/21 12:01 Unsat Iron Binding 167 ug/dL (112-347) 12/19/21 12:01 Total Bilirubin 0.3 mg/dL (0.15-1.2) 12/19/21 12:01 AST 14 U/L (0-40) 12/19/21 12:01 ALT 18 U/L (0-41) 12/19/21 12:01 Alkaline Phosphatase 106 IU/L (40-130) 12/19/21 12:01 Troponin T Baseline 47 ng/L (0-15) H 12/19/21 12:01 Troponin T 120 Minute 37.75 ng/L (0-15) H 12/19/21 14:42 Delta Troponin T -9.25 ABS# (0-10) L 12/19/21 14:42 NT-Pro-B Natriuret Pep 203 pg/mL (0-125) H 12/19/21 12:01 Total Protein 6.6 g/dL (6.6-8.7) 12/19/21 12:01 Albumin 3.1 g/dL (3.5-5.2) L 12/19/21 12:01 Globulin 3.5 g/dL (1.3-4.6) 12/19/21 12:01 Procalcitonin 0.37 ng/mL (0-0.5) 12/19/21 12:01 TSH 0.66 uIU/mL (0.27-4.20) 12/19/21 12:01 Urine Color Yellow (Yellow) 12/19/21 13:44 Urine Appearance Sl hazy (CLEAR) 12/19/21 13:44 Urine pH 5 (5-7) 12/19/21 13:44 Ur Specific [place] 1.025 (1.005-1.030) 12/19/21 13:44 Urine Protein Neg (Negative) 12/19/21 13:44 Urine Glucose (UA) Norm (Normal) 12/19/21 13:44 Urine Ketones Negative (Negative) 12/19/21 13:44 Urine Blood Neg (Negative) 12/19/21 13:44 Urine Nitrate Negative (Negative) 12/19/21 13:44 Urine Bilirubin Neg (Negative) 12/19/21 13:44 Urine Urobilinogen 1 mg/dL (Negative) H 12/19/21 13:44 Ur Leukocyte Esterase Negative (Negative) 12/19/21 13:44 Urine RBC None /hpf (0-2) 12/19/21 13:44 Urine WBC 0-4 /hpf (0-5) H 12/19/21 13:44 Ur Squamous Epith Cells 0-4 /hpf (0-5) H 12/19/21 13:44 Calcium Oxalate Crystal 15-25 /hpf H 12/19/21 13:44 Amorphous Sediment Not Reportable 12/19/21 13:44 Urine Bacteria Trace /hpf (NONE) 12/19/21 13:44 Hyaline Casts 0-4 /lpf H 12/19/21 13:44 Urine Mucus Trace /hpf 12/19/21 13:44 EKG Data EKG 1: I personally reviewed and interpreted this EKG as follows: EKG interpretation date: 12/19/21 EKG interpretation time: 12:17 Interpretation: Twelve-lead EKG shows a regular rhythm at a rate of 88. ND interval 168, QRS duration 144, QTc 414. Normal axis. Interpretation: Sinus rhythm. Right bundle branch block. EKG 2: I personally reviewed and interpreted this EKG as follows: EKG interpretation date: 12/19/21 EKG interpretation time: 14:43 Interpretation: Twelve-lead EKG shows a regular rhythm at a rate of 88. ND interval 198, QRS duration 146, QTc 415. Normal axis. Interpretation: Sinus rhythm. Right bundle branch block. Discharge Plan Discharge Patient Disposition: Placed in Observation Admit Provider: Ethan Garcia Clinical Impression: Pneumonia Coding Level of Care Code ED Kindergarten Assistant for Chg Fwd Exam Comprehensive
--- NOTE | 2021-12-19 11:40 | CT_ITS ---
WS: [id number] CT HEAD TECHNIQUE: Noncontrast CT of the head obtained from the skullbase to the vertex. CLINICAL INFORMATION: ams COMPARISON: November 30, 2021 DLP: 938.[address] scans at [facility] use at least one of these dose optimization techniques: automated e xposure control; mA and/or kV adjustment per patient size (includes targeted exams where dose is matc hed to clinical indication); or iterative reconstruction. FINDINGS: No evidence of intracranial hemorrhage or mass effect. Ventricular system and basal cisterns are howe nt. Mild small vessel changes with mild parenchymal volume loss. No extra-axial fluid collections. Ti ny chronic lacunar infarct RIGHT lateral basal ganglia. No evidence of mass or mass effect. Normal gr ay-white differentiation. Paranasal sinuses and mastoid air cells are well aerated. .Normal visualized soft tissues. CT/CT head wo con* [id number] IMPRESSION: 1. No evidence of intracranial hemorrhage or mass effect. 2. Mild small vessel changes. Mild parenchymal volume loss. 3. Intracranial vascular calcification. 4. No acute intracranial findings.
--- NOTE | 2021-12-19 11:40 | XRR_ITS ---
PROCEDURE INFORMATION: Exam: XR Chest Exam date and time: 12/19/2021 10:44 AM Age: 66 years old Clinical indication: Cough TECHNIQUE: Imaging protocol: XR of the chest. Views: 1 view. Total images: 1 COMPARISON: CR (CHEST, ) 11/30/2021 1:19 AM FINDINGS: Tubes, catheters and devices: A right infusion port is present. Lungs: Nonspecific mild bibasilar opacities, favoring atelectasis or pneumonia. Benign granulomatous disease of the lung is noted. Pleural spaces: There is biapical pleural thickening, likely related to chronic pleural-parenchymal scarring. Heart/Mediastinum: Heart size is stable when compared to the prior exam. Diaphragm: There is nonspecific elevation of the left hemidiaphragm. Bones/joints: Osseous structures are unchanged from the prior exam. Gastrointestinal tract: There is gaseous distention of the stomach noted. XR/XR chest 1V portable [id number] IMPRESSION: Nonspecific mild bibasilar opacities, favoring atelectasis or pneumonia. This finding is stable when compared to the prior exam.
--- NOTE | 2021-12-19 11:41 | ECG_ITS ---
[facility] [place] Test Date: 2021-12-19 Pat Name: Néstor Orozco Department: Room: 260 Gender: Male Diver'S Tender: : 1955 Requested By: Mic Robles Order Number: [id number] Jassi MD: Deb Dorsey M.D. Measurements Intervals [place] Rate: 80 P: 46 [place]: 191 QRS: 49 QRSD: 148 T: 38 QT: 377 QTc: 437 Interpretive Statements SINUS RHYTHM INDETERMINATE AXIS RIGHT BUNDLE BRANCH BLOCK [120+ ms QRS DURATION, UPRIGHT V1, 40+ ms S IN I/aVL/V4/V5/V6] Compared to ECG 12/19/2021 14:39:06 Indeterminate axis now present Electronically Signed On 12-19-2021 20:27:20 CDT by Deb Dorsey M.D. [id number]
[2021-12-19] MEDS: lactated ringers 1,000 ML 999 ML IV (12:07)
[2021-12-19 12:15] LABS: Basophils % 0.2 %; Eosinophils # 0.2 10^3/uL (0.0-0.8); Eosinophils % 1.9 %; Hematocrit 30.7 % (42.0-52.0); Hemoglobin 8.8 g/dL (11.7-16.6); Lymphocytes # 0.2 10^3/uL (0.8-4.8); Mean Corpuscular HGB Conc 28.7 g/dL (30.0-36.0); Mean Corpuscular Hemoglobin 26.9 pg (28.0-34.0); Mean Corpuscular Volume 93.9 fl (80-94); Mean Platelet Volume 9.8 fL (7.4-10.4); Monocytes % 9.4 %; Neutrophils # 8.83 10^3/uL (1.8-7.7); Neutrophils % 86.1 %; Nucleated Red Blood Cells % 0 %; Platelet Count 200 10^3/cmm (130-400); Red Blood Count 3.27 10^6/uL (4.1-5.3); Red Cell Distribution Width 19.1 % (12.1-15.1); White Blood Count 10.3 10^3/uL (4.0-10.0)
[2021-12-19 12:41] LABS: Troponin(5th) Baseline 47 ng/L (0-15)
[2021-12-19 12:47] LABS: Alanine Aminotransferase 18 U/L (0-41); Albumin Level 3.1 g/dL (3.5-5.2); Alkaline Phosphatase 106 IU/L (40-130); Anion Gap 16.6 (5-19); Aspartate Amino Transferase 14 U/L (0-40); Blood Urea Nitrogen 21 mg/dL (8-23); Calcium 12.9 mg/dL (8.5-10.5); Carbon Dioxide 27 mmol/L (22-29); Chloride 98 mmol/L (98-107); Globulin 3.5 g/dL (1.3-4.6); Glomerular Filtration Rate 66.6 mL/min (90-130); Glucose 113 mg/dL (65-115); NT Pro B Type Natriuretic Pept 203 pg/mL (0-125); Osmolality Calculated 288 mOsm/kg (285-295); Potassium 4.6 mmol/L (3.5-5.1); Sodium 137 mmol/L (136-145); Thyroid Stimulating Hormone 0.66 uIU/mL (0.27-4.20); Total Bilirubin 0.3 mg/dL (0.15-1.2); Total Protein 6.6 g/dL (6.6-8.7)
--- NOTE | 2021-12-19 12:55 | PC.NURSE ---
Pt states he is unable to provide a UA sample at this time. Will reassess after IV fluids are infused.
--- NOTE | 2021-12-19 13:06 | CT_ITS ---
WS: [id number] CTA CHEST with ABDOMEN AND PELVIS TECHNIQUE: Contrast enhanced CTA of the chest, followed by abdomen, and pelvis with coronal and sagit ozzie reformatted images and additional MIP Images. CLINICAL INFORMATION: cough, weakness, SIRS, abdominal pain COMPARISON: Outside studies CT March 11, [address] March 16, 2020. CT abdomen pelvis June DLP: 1405.[address] scans at [facility] use at least one of these dose optimization techniques: automated e xposure control; mA and/or kV adjustment per patient size (includes targeted exams where dose is matc hed to clinical indication); or iterative reconstruction. FINDINGS: Proximal main pulmonary arteries are normal. Normal segmental pulmonary arteries. No filling defects to indicate pulmonary embolus. Normal caliber thoracic aorta. Normal caliber descending thoracic aort a. Nodular RIGHT thyroid. No mediastinal or hilar lymphadenopathy. No axillary lymphadenopathy. Patchy infiltrates in the RIGHT lower lobe suspicious for pneumonia. Moderate to advanced chronic emp hysematous changes. History of LEFT lower lobectomy. Suspected metastatic or recurrent disease involv ing the LEFT lower chest wall with destruction of multiple LEFT lower lateral ribs. This involves the 8th 9th 10th 11th ribs laterally. Associated soft tissue enhancing mass in the LEFT lower lateral ch est wall extending into the LEFT upper abdomen abutting the LEFT spleen. Enhancing intercostal soft t issue lesions with associated air extending to the subcutaneous soft tissues off the [id number] to the area of reported ulceration. Area of neoplasm measures approximately 11.9 x 9.3 Cm Diffuse fatty infiltration of the liver. Normal portal vein and splenic vein. Normal GE junction. Zoe or LEFT nephrectomy. Mass effect on the spleen from the LEFT chest wall and upper abdominal wall mass . Retrocrural lymphadenopathy. Adrenal glands are normal. Normal RIGHT renal parenchymal enhancement. RIGHT lower pole renal lesion measuring 2.3 cm appears slightly larger compared to 2020. Portal vein and splenic vein appear patent. Normal caliber abdominal aorta. Aortic calcification. Enlarged prostate measuring 5.1 cm with evidenc e of bladder outlet obstruction. Normal appendix in the RIGHT lower quadrant. No periaortic lymphaden opathy. No pelvic or inguinal lymphadenopathy. 9Soft tissue thickening involving the sigmoid colon LEFT lower quadrant with surrounding induration. Recommend correlation for diverticulitis. Suggestion of mild tethering in this area. Metastatic disea se/neoplasm not excluded and recommend follow-up to resolution and/or further evaluation with colonos copy. CT/CT angio chest w abd pel w con IMPRESSION: 1. No evidence of pulmonary embolus. 2. Patchy infiltrates in RIGHT lower lobe consistent with pneumonia. 3. History of prior LEFT lower lobectomy. 4. LEFT lower chest wall and upper abdominal wall soft tissue metastatic disea se or recurrence with enhancing soft tissue mass. Associated erosion of the LEF T lower ribs described above. Recommend oncology evaluation for staging. 5. Enlarged LEFT retrocrural lymph node. 6. Prior LEFT nephrectomy. 7. Enlarged prostate measuring 5.1 CM. Evidence of bladder outlet obstruction. 8. Low-attenuation RIGHT lower lower pole renal lesion may represent a complex cyst but indeterminant and slightly enlarged compared to 2020. This can be fol lowed up with ultrasound on an elective basis. 9. Soft tissue thickening involving the sigmoid colon LEFT lower quadrant with surrounding induration. Recommend correlation for diverticulitis. Suggestion o f mild tethering in this area. Metastatic disease/neoplasm not excluded and rec ommend follow-up to resolution and/or further evaluation with colonoscopy. Notified Mic Robles MD at 12/19/2021 3:03 PM.
--- NOTE | 2021-12-19 13:41 | ECG_ITS ---
[facility] Test Date: 2021-12-19 Pat Name: Néstor Orozco Department: Room: Gender: Male Rehabilitation Director: : 1955 Requested By: Mic Robles Order Number: [id number] Jassi MD: Deb Dorsey M.D. Measurements Intervals [place] Rate: 88 P: 61 [place]: 198 QRS: 93 QRSD: 146 T: 51 QT: 370 QTc: 448 Interpretive Statements SINUS RHYTHM RIGHT BUNDLE BRANCH BLOCK [120+ ms QRS DURATION, UPRIGHT V1, 40+ ms S IN I/aVL/V4/V5/V6] Compared to ECG 12/19/2021 12:15:36 Indeterminate axis no longer present Electronically Signed On 12-19-2021 20:36:02 CDT by Deb Dorsey M.D. [id number]
[2021-12-19 14:11] LABS: Add Urine Microscopic? YES; Bacteria Urine TRACE /hpf; Bilirubin Urine Neg (Negative); Blood Urine Neg (Negative); Calcium Oxalate Crystals Urine 15-25 /hpf; Glucose Urine UA Norm (Normal); Hyaline Casts Urine 0-4 /lpf; Ketones Urine Negative (Negative); Leukocyte Esterase Urine Negative (Negative); Mucus Urine TRACE /hpf; Nitrate Urine Negative (Negative); Protein Urine Neg (Negative); Specific Gravity, Urine 1.025 (1.005-1.030); Squamous Epithelial Cell Urine 0-4 /hpf (0-5); Urine Appearance SL Hazy (CLEAR); Urine Color Yellow (Yellow); Urobilinogen Urine 1 mg/dL (Negative); WBC Urine 0-4 /hpf (0-5); pH Urine 5 (5-7)
[2021-12-19 14:12] LABS: Add Urine Culture? No
[2021-12-19] MEDS: iodixanol 320 mg/mL 100mL Btl IV (14:25)
[2021-12-19 15:16] LABS: Troponin 5 2HR 37.75 ng/L (0-15)
[2021-12-19 15:20] LABS: Troponin 5 2HR Delta -9.25 ABS# (0-10)
[2021-12-19] MEDS: piperacillin-tazobactam 4.5 GM in sodium chloride 0.9% (plus) 50 ML IV (15:38)
[2021-12-19] MEDS: oxyCODONE 5 mg IR Tab/Cap 15 MG PO (15:39)
--- NOTE | 2021-12-19 16:59 | P.HP_ITS ---
Providers/Chief Complaint Admitting Physician: Ethan Garcia MD Primary Care Provider: Mikael Gibson DO Chief Complaint: general weakness History of Present Illness Néstor Orozco is a 66 year old male presented with metastatic lung cancer, with left-sided chest wall large mass, with inferior wound following with wound care clinic, also for sacral pressure ulcer, otherwise with remote history of renal cancer, also with BPH, A. fib, COPD, depression, anxiety, anemia, HTN, HLD, other comorbidities who was recently in hospital when he was treated for septic shock with pressors secondary to infection of chest wall mass and was sent home on oral Levaquin. During that hospitalization his wound cultures grew Pseudomonas and Acetobacter. He presents today because of weakness which has been ongoing since his last discharge along with shortness of breath. Chronically he is on 3 to 3-1/2 L of oxygen and occasionally has been turned up to 4 L at home as well. Today he is again on 4 L. Complains of diarrhea today which started happening after he took multiple stool softeners secondary to constipation for last 4 to 5 days. States sometimes bowel movements are soft and black in color. States he has not taken any Eliquis for over 3 weeks as it was stopped by her primary care provider given concern for GI bleed and was switched over to aspirin 325 mg daily. State s has been taking Tylenol multiple times during the day because of pain. Denies any subjective fever fever, dysuria. Complaining of cough with expectoration. Denies any sick contacts. Review of Systems General: Reports: 10 or more systems reviewed and unremarkable except in HPI and below Const: Denies: fever(s), chills, body aches, change in appetite, change in weight, malaise, night sweats, diaphoresis, change in sleep pattern, daytime sleepiness or snoring Eyes: Denies: change in vision, blurry vision, photophobia, eye discomfort or eye discharge ENMT: Denies: throat pain, enlarged tonsils, hoarseness, mouth pain, oral sores, dry mouth, tinnitus, nasal congestion or post nasal drip Card: Denies: chest pain, palpitations, irregular heart rhythm, edema, swelling of feet/ankles, lightheadedness, syncope, pre-syncope, dyspnea on exertion, orthopnea, leg pain with exertion or acrocyanosis Resp: Denies: dyspnea, productive cough, non-productive cough, wheezing, stridor, pain on inspiration, change in phlegm color, hemoptysis or chest congestion GI: Denies: abdominal pain, nausea, vomiting, hematemesis, coffee ground emesis, dysphagia, heartburn, diarrhea, constipation, bloating, GI cramping, change in bowel habits, pain on defecation, hematochezia or melena : Denies: flank pain, difficulty urinating, dysuria, urinary frequency, urinary urgency, urinary hesitancy, urinary dribbling, difficulty starting urination, change in urine stream, nocturia or hematuria Musc: Denies: neck pain, back pain, extremity pain, joint pain, joint swelling, joint redness, joint stiffness or limited range of motion Neuro: Denies: headache(s), numbness in extremities, weakness in extremities, sensory changes, lack of coordination, difficulty walking, frequent falls, dizziness, vertigo, confusion, Slurred speech present, difficulty communicating thoughts or seizure-like activity Psych: Denies: anxiety, depression, mood swings, panic attacks, hopelessness or irritability Endo: Denies: polyuria, polydipsia, tired all the time, cold intolerance, excessive sweating, flushing or heat intolerance Ankur/Lymph: Denies: easy bruising or easy bleeding All/Imm: Denies: tongue swelling, facial swelling or acute wheezing Medications/Allergies Home Medications Medication Instructions Recorded Confirmed Last Taken Type albuterol sulfate 90 mcg/actuation 2 puff INHALATION Q6H PRN 03/10/20 12/19/21 Unknown History aerosol inhaler (Ventolin HFA) escitalopram oxalate 10 mg tablet 10 mg PO QAM 03/10/20 12/19/21 12/19/21 History acetaminophen 650 mg 1,300 mg PO BID PRN 12/07/20 12/19/21 Unknown History tablet,extended release (Tylenol Arthritis Pain) alprazolam 0.25 mg tablet 0.25 mg PO BID 11/30/21 12/19/21 12/19/21 History fluticasone 500 mcg-salmeterol 50 1 ea INHALATION QAM 11/30/21 12/19/21 12/19/21 History mcg/dose blistr powdr for inhalation (Advair Diskus) morphine 30 mg tablet,extended 30 mg PO BID PRN 11/30/21 12/19/21 Unknown History release oxycodone 15 mg tablet 15 mg PO Q4H PRN 11/30/21 12/19/21 Unknown History polyethylene glycol 3350 17 17 g PO QAM 11/30/21 12/19/21 12/19/21 History gram/dose oral powder (Miralax) ferrous sulfate 325 mg (65 mg 325 mg PO EVERY OTHER DAY #90 tab 12/02/21 12/19/21 12/18/21 Rx iron) tablet lidocaine HCl 2 % mucosal jelly 1 applic TOPICAL PRN PRN #30 ml 12/02/21 12/19/21 12/18/21 Rx pantoprazole 40 mg tablet,delayed 40 mg PO BIDWM #84 tab 12/02/21 12/19/21 12/19/21 Rx release aspirin 325 mg tablet 325 mg PO DAILY 12/19/21 12/19/21 12/19/21 History tamsulosin 0.4 mg capsule 0.8 mg PO BEDTIME 12/19/21 12/19/21 12/18/21 History Allergies Allergy/AdvReac Type Severity Reaction Status Date / Time No Known Allergies Allergy Verified 11/30/21 12:04 PFSH Acute PFSH: Medical History (Updated 12/19/21 @ 17:02 by Ethan Garcia MD) Anemia BPH loc w urin obs/LUTS Chronic prostatitis Chronic respiratory failure with hypoxia Diastolic CHF with preserved left ventricular function, NYHA class 2 Elevated PSA Mass of left chest wall Metastatic lung cancer (metastasis from lung to other site) Pulmonary nodule Renal cancer S/p nephrectomy Surgical History H/O hernia repair H/O prostate biopsy Previous back surgery Family History Father , AT AGE 58 Automobile accident Mother , AT AGE 89 CHF (congestive heart failure) Social History Smoking and tobacco status: former smoker Alcohol intake: never Marital status: Current occupational status: retired 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, 2 handrails in front though wide steps History of recent travel: No Vitals/I&O/Wt Last Vital Signs Temp 97.9 F 12/19/21 11:21 Pulse 92 12/19/21 16:10 Resp 20 H 12/19/21 16:10 BP 117/77 12/19/21 16:04 Pulse Ox 97 12/19/21 16:10 12/19/21 12/19/21 12/19/21 06:59 14:59 22:59 Intake Total 1000 / 1000 50 / 1050 Balance 1000 / 1000 50 / 1050 Weight last 48 hrs Weight 79.379 kg Physical Exam Narrative: Skin: ?Left chest wall mass [id number] w 2 inferior open wounds with drainage of foul-smelling purulent material packed with gauze.? Inferiorly area of 10 x 10 cm of tall erythema. Also small difficulty stage, stage IV pressure sore on sacrum with 0.5 x 0.5 cm opening Const: COMMON NORMALS: no acute distress and patient oriented x3 NUTRITIONAL APPEARANCE: cachectic (Temporal wasting) and thin HENMT: OTHER: Pallor present Chest: OTHER: Bilateral bronchial breath sounds, decreased air entry in the left, coarse crackles and right lower zone, left hemithorax with mass Cardio: OTHER: S1-S2 regular, no murmurs no gallop GI: OTHER: Soft, nontender, bowel sounds present, no organomegaly Neuro: OTHER: No focal deficits Data : 12/20/21 05:20 12/20/21 05:20 Micro: Microbiology 12/19/21 12:04 Blood Culture - Preliminary Blood SPECIMEN COLLECTED 12/19/21 12:01 Blood Culture - Preliminary Blood SPECIMEN COLLECTED A&P Assessment and plan (1) Chronic respiratory failure with hypoxia: Status: Acute (2) Pneumonia: Status: Acute (3) Mass of left chest wall: Status: Acute (4) Metastatic lung cancer (metastasis from lung to other site): Status: Acute (5) Anemia: Status: Acute Plan Acute on chronic hypoxia: Most likely secondary to pneumonia on baseline metastatic lung cancer. PSI score 118, risk class IV. Curb 65 score of 2 PE ruled out with negative CTA. CTA consistent with patchy infiltrate of right lower lobe. Check blood culture, urine culture, urine Legionella, bacterial antigen, sputum culture. Check COVID-19, flu swab. We will start on treatment for COVID-19 floor depending on the results. For now start patient on vancomycin and Zosyn to cover for possible hospital- acquired pneumonia given recent admission. Add Levaquin to cover for atypicals. Will de-escalate as per culture results. Oxygen supplementation keeping saturation over 88%. DuoNeb every 6 hour, budesonide twice daily. Left chest wall mass/wound: Continue wound care as before. Recent wound cultures consistent with Citrobacter and Pseudomonas both sensitive to Zosyn. Anemia: Hemoglobin at baseline. Check iron panel. Continue with home oral supplementation. Continue other chronic home medications including aspirin 325 mg daily, Lexapro, lidocaine patch, oxycodone and morphine as at home, Flomax. CODE STATUS: Limited resuscitation to chest compressions only. DO NOT INTUBATE. Lovenox for DVT prophylaxis. Regular diet. Protonix for PUD prophylaxis. PT/OT evaluation. Attestations Medical Necessity Statement*: Hospitalization for more than 2 midnights for management of acute on chronic hypoxia secondary to pneumonia in setting of metastatic lung cancer with left chest wall mass Time Spent in Patient Care: Greater than 35 minutes Coding Level of Care Code Acute Clay Temperer for [facility] Fwd Exam Problem Focused Diagnoses Chronic respiratory failure with hypoxia J96.11 Pneumonia J18.9 Mass of left chest wall R22.2 Metastatic lung cancer (metastasis from lung to other site) C34.90 Anemia D64.9
[2021-12-19] MEDS: pantoprazole DR 40 mg Tablet PO (17:32)
[2021-12-19] MEDS: ALPRAZolam 0.5 mg Tablet 0.25 MG PO (17:32)
[2021-12-19] MEDS: enoxaparin 40 mg/0.4 mL Syringe SUBCUT (17:33)
--- NOTE | 2021-12-19 17:41 | ECG_ITS ---
[facility] Test Date: 2021-12-19 Pat Name: Néstor Orozco Department: Room: Gender: Male Graduate Studies Dean: : 1955 Requested By: Mic Robles Order Number: [id number] Jassi MD: Deb Dorsey M.D. Measurements Intervals Freer Rate: 88 P: 34 OK: 168 QRS: -25 QRSD: 144 T: 27 QT: 369 QTc: 447 Interpretive Statements SINUS RHYTHM INDETERMINATE AXIS RIGHT BUNDLE BRANCH BLOCK [120+ ms QRS DURATION, UPRIGHT V1, 40+ ms S IN I/aVL/V4/V5/V6] Compared to ECG 11/30/2021 16:29:54 Indeterminate axis now present Sinus bradycardia no longer present First degree AV block no longer present Second-degree AV block, Mobitz type II no longer present Electronically Signed On 12-19-2021 20:31:01 CDT by Deb Dorsey M.D. [id number]
[2021-12-19] MEDS: vancomycin 1,000 MG in sodium chloride 0.9% 250 ML 250 MG IV (18:32)
[2021-12-19] MEDS: sodium chloride 0.9% 1,000 ML 50 ML IV (18:32)
[2021-12-19 18:38] LABS: Procalcitonin 0.37 ng/mL (0-0.5)
[2021-12-19 18:40] LABS: Adenovirus Not Detected (NOT DETECT); Chlamydia Pneumoniae Not Detected (NOT DETECT); Coronavirus 229E,HKU1,NL63,OC4 Not Detected (NOT DETECT); Human Metapneumovirus Not Detected (NOT DETECT); Human Rhinovirus/Enterovirus Not Detected (NOT DETECT); Influenza A Not Detected (NOT DETECT); Influenza A H1 Not Detected (NOT DETECT); Influenza A H1-2009 Not Detected (NOT DETECT); Influenza A H3 Not Detected (NOT DETECT); Influenza B Not Detected (NOT DETECT); Mycoplasma Pneumoniae Not Detected (NOT DETECT); Parainfluenza Virus Type 1 Not Detected (NOT DETECT); Parainfluenza Virus Type 2 Not Detected (NOT DETECT); Parainfluenza Virus Type 3 Not Detected (NOT DETECT); Parainfluenza Virus Type 4 Not Detected (NOT DETECT); Respiratory Syncytial Virus A Not Detected (NOT DETECT); Respiratory Syncytial Virus B Not Detected (NOT DETECT); SARS-COV-2 Not Detected (NOT DETECT)
--- NOTE | 2021-12-19 18:57 | PC.NURSE ---
Patient arrived on floor around 1615. Vitals stable. Telemetry on. Oriented to room. , vp care management is at bedside. Abx and fluids ordered and running. Patient had bowel movement. Admission complete. Will continue to monitor and give report to night nurse.
[2021-12-19 19:00] LABS: Iron 21 ug/dL (59-158); Percent Saturation 11.1 % (20-50); Total Iron Binding Capacity 188 mcg/dl; Unsaturated Iron Binding 167 ug/dL (112-347)
[2021-12-19 19:24] LABS: Troponin 5 6HR 36.72 ng/L (0-15)
[2021-12-19] MEDS: budesonide 0.5 mg/2 mL Neb INHALATION (20:29)
[2021-12-19] MEDS: ipratropium-albuterol 3 mL Neb INHALATION (20:29)
[2021-12-19] MEDS: tamsulosin 0.4 mg Capsule 0.8 MG PO (20:59)
[2021-12-19] MEDS: morphine ER (12 HR) 30 mg tablet PO (21:22)
--- NOTE | 2021-12-19 21:41 | PC.NURSE ---
PATIENT'S DRESSING ON LEFT SIDE OF CHEST CHANGED AT THIS TIME. GAUZE WITH LIDOCAINE APPLIED TO TUNNELING COVERED WITH TELFA AND ABD PAD, SECURED WITH GIOVANNI BANDAGE. PATIENT TOLERATED ACTIVITY WELL, DID HAVE SOME DISCOMFORT SO PRN MEDICATION GIVEN FOR PAIN. SEE MAR.
[2021-12-20] VITALS (25 sets, daily range): BP systolic 86–110; BP diastolic 54–98; PULSE 63–87; RESP 14–18; TEMP 36.4–37; O2SAT 95–100
[2021-12-20] MEDS: piperacillin-tazobactam 3.375 GM in sodium chloride 0.9% (plus) 50 ML IV ×3 (00:15→16:26)
[2021-12-20] MEDS: oxyCODONE-APAP 5-325 mg Tablet 1 TAB PO ×2 (01:33→08:18)
[2021-12-20] MEDS: ipratropium-albuterol 3 mL Neb INHALATION ×4 (02:41→21:05)
[2021-12-20] MEDS: vancomycin 1,000 MG in sodium chloride 0.9% 250 ML 250 MG IV ×2 (05:34→17:26)
[2021-12-20] MEDS: escitalopram 10 mg Tablet PO (05:34)
[2021-12-20] MEDS: levoFLOXacin 500 mg Tablet PO (05:34)
[2021-12-20 05:41] LABS: Basophils % 0.2 %; Eosinophils # 0.3 10^3/uL (0.0-0.8); Eosinophils % 5.7 %; Hematocrit 23.6 % (42.0-52.0); Hemoglobin 6.7 g/dL (11.7-16.6); Lymphocytes # 0.4 10^3/uL (0.8-4.8); Lymphocytes % 7.7 %; Mean Corpuscular HGB Conc 28.4 g/dL (30.0-36.0); Mean Corpuscular Hemoglobin 26.6 pg (28.0-34.0); Mean Corpuscular Volume 93.7 fl (80-94); Mean Platelet Volume 9.8 fL (7.4-10.4); Monocytes # 0.8 10^3/uL (0.2-0.9); Monocytes % 16.3 %; Neutrophils # 3.55 10^3/uL (1.8-7.7); Neutrophils % 69.7 %; Nucleated Red Blood Cells % 0 %; Platelet Count 164 10^3/cmm (130-400); Red Blood Count 2.52 10^6/uL (4.1-5.3); White Blood Count 5.1 10^3/uL (4.0-10.0)
[2021-12-20 05:59] LABS: Alanine Aminotransferase 10 U/L (0-41); Albumin Level 2.2 g/dL (3.5-5.2); Alkaline Phosphatase 75 IU/L (40-130); Anion Gap 10.7 (5-19); Aspartate Amino Transferase 8 U/L (0-40); Blood Urea Nitrogen 27 mg/dL (8-23); Calcium 11.2 mg/dL (8.5-10.5); Carbon Dioxide 27 mmol/L (22-29); Chloride 102 mmol/L (98-107); Cholesterol 132 mg/dL (0-200); Creatinine Clr Calc Pharmacy 83.9462; Globulin 2.7 g/dL (1.3-4.6); Glomerular Filtration Rate 83.9 mL/min (90-130); Glucose 90 mg/dL (65-115); HDL Cholesterol 24 mg/dL (60-100); LDL Cholesterol Calculated 75 mg/dL (50-129); Osmolality Calculated 287 mOsm/kg (285-295); Potassium 3.7 mmol/L (3.5-5.1); Sodium 136 mmol/L (136-145); Total Bilirubin 0.2 mg/dL (0.15-1.2); Total Protein 4.9 g/dL (6.6-8.7); Triglycerides 164 mg/dL (0-150); VLDL Cholestrol Calculation 33 mg/dL (0-30)
[2021-12-20 06:03] LABS: Estmated Average Glucose 103; Hemoglobin A1C 5.2 % (4.0-6.0)
[2021-12-20] MEDS: ALPRAZolam 0.5 mg Tablet 0.25 MG PO ×2 (08:17→17:25)
[2021-12-20] MEDS: pantoprazole DR 40 mg Tablet PO (08:18)
[2021-12-20] MEDS: aspirin 325 mg Tablet PO (08:19)
[2021-12-20] MEDS: budesonide 0.5 mg/2 mL Neb INHALATION ×2 (09:05→21:05)
[2021-12-20] MEDS: morphine ER (12 HR) 30 mg tablet PO ×2 (09:22→17:25)
--- NOTE | 2021-12-20 10:18 | PC.CHAP ---
Pastoral Care Encounter/Spiritual Assessment Type of Contact [] Declined seedling puller visit [] Patient/Family/Request visit [] Outpatient visit [] Follow-up visit [] Physician referral [] Code/Alert [x] Routine visit [] Staff referral [] Actively dying [] Patient sleeping [] Family support [] [] Out of room [] Palliative care [] [] Receiving care in room [] Pre-surgical visit [] Trauma [] Long length of stay [] ICU visit [] Other: Relational/Emotional Strength [x] Patient feels connected with others/family/visitors/staff [] Distress [] Loneliness/isolation [] Abandonment Spirituality of Patient [x] Person of Nela [x] Attends Zoroastrian of their Nela [x] Believes in Prayer [x] Reads Bible or Orthodoxy materials [] There are Spiritual issues to be addressed Voting Machine Mechanic Interventions [] Prayer [x] Active listening [x] Non-anxious presence [x] Spiritual/emotional support [] Crisis/trauma care [] Spiritual counseling [] Bereavement support [] Provided bereavement packet [] Provided Bible/devotional materials [] Provided toy/stuffed animal, coloring book to patient or family member [] Provided Communion [] Anointing/[place] [] Salvation [x] Completed spiritual assessment [] Other: Impact on Illness or Injury [] Angry [] Fearful [] Anxious [] Often cries [] Exhaustion [] Unable to work [] Unable to attend religious [] Unable to walk/stand [] Unable to read [] Unable to drive [] Unable to eat/drink [] Unable to sleep [] Unable to be with family [] Patient intubated [] Other: Summary Pt was Covid rule out but door was open and Pt's SO recognized Voting Machine Mechanic, as we had been coworkers for many years. Pt has cancer and undergone treatment the last couple of years. Ongoing issues. Was in hosptial three weeks ago, and problems seem to have reappeared again. Pt has a strong nela. Daughter came while Voting Machine Mechanic was visiting. Time spent with patient 15m
--- NOTE | 2021-12-20 13:14 | PM.PN ---
Subjective Subjective: No acute events overnight. Seen with at bedside. Patient denies any active complaints. Denies any nausea, vomiting, headache. States pain is well controlled. Has remained hemodynamically stable and afebrile. Today morning his blood pressures are on the softer side with patient denies any dizziness. Vitals/I&O/Wt Last Vital Signs Temp 98.1 F 12/20/21 11:26 Pulse 76 12/20/21 11:26 Resp 18 12/20/21 11:26 BP 86/57 12/20/21 11:26 Pulse Ox 95 12/20/21 11:26 12/19/21 12/20/21 12/20/21 22:59 06:59 14:59 Intake Total 780 / 1780 420 / 2200 410 / 410 Output Total 300 / 300 300 / 600 300 / 300 Balance 480 / 1480 120 / 1600 110 / 110 Weight last 48 hrs Weight 79.379 kg Weight 79.379 kg Physical Exam Narrative: Skin: ?Left chest wall mass 15x 10cm.? Inferiorly area of 10 x 10 cm of tall erythema. Also small difficulty stage, stage IV pressure sore on sacrum with 0.5 x 0.5 cm opening Const: COMMON NORMALS: no acute distress and patient oriented x3 NUTRITIONAL APPEARANCE: cachectic (Temporal wasting) and thin HENMT: OTHER: Pallor present Chest: OTHER: Bilateral bronchial breath sounds, decreased air entry in the left, coarse crackles and right lower zone, left hemithorax with mass Cardio: OTHER: S1-S2 regular, no murmurs no gallop GI: OTHER: Soft, nontender, bowel sounds present, no organomegaly Neuro: COMMON NORMALS: patient oriented x3 OTHER: No focal deficits Data : 12/20/21 05:20 12/20/21 05:20 Micro: Microbiology 12/19/21 12:04 Blood Culture - Preliminary Blood NEGATIVE TO DATE 12/19/21 12:01 Blood Culture - Preliminary Blood NEGATIVE TO DATE 12/19/21 13:44 Bacterial Antigens - Final Urine Kidney 12/19/21 13:44 Legionella Urinary Antigen - Final Unknown Source A&P Assessment and plan (1) GI bleed: Status: Acute (2) Anemia: Status: Acute (3) Chronic respiratory failure with hypoxia: Status: Acute (4) Pneumonia: Status: Acute (5) Mass of left chest wall: Status: Acute (6) Metastatic lung cancer (metastasis from lung to other site): Status: Acute (7) Single kidney: Status: Acute Plan Anemia secondary to GI bleed: Hemoglobin 6.7 today. Stool for occult blood from 11/30+. Continue with Protonix 40 mg twice daily. Transfuse 1 unit of blood. We will consult surgery for a possible colonoscopy and endoscopy. Hold off on aspirin. Acute on chronic hypoxia: Acute hypoxia resolved. Patient back to baseline oxygen supplementation. Most likely secondary to pneumonia on baseline metastatic lung cancer. PSI score 118, risk class IV. Curb 65 score of 2 PE ruled out with negative CTA. CTA consistent with patchy infiltrate of right lower lobe. Blood cultures so far negative. Urine Legionella, bacterial antigen negative. COVID-19, flu swab negative. Continue with vancomycin, Zosyn and Levaquin. MRSA swab awaited. If negative will discontinue vancomycin. If patient remains hemodynamically stable and afebrile for next 24 hours can plan to discontinue antibiotics completely and monitor Oxygen supplementation keeping saturation over 88%. DuoNeb every 6 hour, budesonide twice daily. Left chest wall mass/wound: Continue wound care as before. Recent wound cultures consistent with Citrobacter and Pseudomonas both sensitive to Zosyn. History of pulmonary embolism: Off Eliquis as an outpatient for 3 weeks. Hold off on aspirin for now. Continue to monitor. Single kidney. Continue other chronic home medications including aspirin 325 mg daily, Lexapro, lidocaine patch, oxycodone and morphine as at home, Flomax. CODE STATUS: Limited resuscitation to chest compressions only. DO NOT INTUBATE. Lovenox for DVT prophylaxis. Regular diet. Protonix for PUD prophylaxis. PT/OT evaluation. Attestations Medical Necessity Statement*: Requires further hospitalization for management of anemia secondary to GI bleed, acute on chronic hypoxia Time Spent in Patient Care: Greater than 35 minutes Coding Level of Care Code Acute Corrosion Technician for [facility] Diagnoses Chronic respiratory failure with hypoxia J96.11 Pneumonia J18.9 Mass of left chest wall R22.2 Metastatic lung cancer (metastasis from lung to other site) C34.90 Anemia D64.9 GI bleed K92.2 Single kidney Z90.5
[2021-12-20] MEDS: sodium chloride 0.9% (100 ml) 100 ML (14:25)
[2021-12-20] MEDS: sodium chloride 0.9% 1,000 ML 50 ML IV (14:26)
--- NOTE | 2021-12-20 16:47 | P.CONIM_ITS ---
Providers/Reason For Consult Consulting Physician/Specialty*: General Surgery Stanley Best MD Reason for Consult*: Heme positive stool, anemia. Attending Physician: Ethan Garcia MD Primary Care Provider: Mikael Gibson DO History of Present Illness History of Present Illness Néstor Orozco is a 66 year old male who is unfortunately dealing with metastatic lung cancer. He is currently limited resuscitation only. He has had known significant anemia for several weeks. His stool apparently tested heme positive. He has some difficulty telling me if his stool is very dark in color but a family memeber at least can say occasionally he would have some red blood in his stool. He had a colonoscopy back in 2013 which revealed some diverticulosis and some diminutive rectal polyps. He denies any upper GI symptoms in terms of epigastric pain, heartburn, etc. He denies any regular NSAID use. He has no known history of peptic ulcer disease. He has no family history of upper or lower GI neoplasia to his knowledge. The patient says his bowel function is good. It does appear, however, that he was constipated before coming in and he had taken multiple stool softeners to deal with that. He was on some Eliquis but has not taken that for several weeks. He was switched to full-size aspirin a day. Since his stool was found be heme positive his aspirin was put on hold. He also has been on some Lovenox for DVT prevention but I have stopped that, as well. Review of Systems Const: Denies: fever(s) GI: Denies: abdominal pain, nausea or hematemesis Medications/Allergies Home Medications Medication Instructions Recorded Confirmed Last Taken Type albuterol sulfate 90 mcg/actuation 2 puff INHALATION Q6H PRN 03/10/20 12/19/21 Unknown History aerosol inhaler (Ventolin HFA) escitalopram oxalate 10 mg tablet 10 mg PO QAM 03/10/20 12/19/21 12/19/21 History acetaminophen 650 mg 1,300 mg PO BID PRN 12/07/20 12/19/21 Unknown History tablet,extended release (Tylenol Arthritis Pain) alprazolam 0.25 mg tablet 0.25 mg PO BID 11/30/21 12/19/21 12/19/21 History fluticasone 500 mcg-salmeterol 50 1 ea INHALATION QAM 11/30/21 12/19/21 12/19/21 History mcg/dose blistr powdr for inhalation (Advair Diskus) morphine 30 mg tablet,extended 30 mg PO BID PRN 11/30/21 12/19/21 Unknown History release oxycodone 15 mg tablet 15 mg PO Q4H PRN 11/30/21 12/19/21 Unknown History polyethylene glycol 3350 17 17 g PO QAM 11/30/21 12/19/21 12/19/21 History gram/dose oral powder (Miralax) ferrous sulfate 325 mg (65 mg 325 mg PO EVERY OTHER DAY #90 tab 12/02/21 12/19/21 12/18/21 Rx iron) tablet lidocaine HCl 2 % mucosal jelly 1 applic TOPICAL PRN PRN #30 ml 12/02/21 12/19/21 12/18/21 Rx pantoprazole 40 mg tablet,delayed 40 mg PO BIDWM #84 tab 12/02/21 12/19/21 12/19/21 Rx release aspirin 325 mg tablet 325 mg PO DAILY 12/19/21 12/19/21 12/19/21 History tamsulosin 0.4 mg capsule 0.8 mg PO BEDTIME 12/19/21 12/19/21 12/18/21 History Allergies Allergy/AdvReac Type Severity Reaction Status Date / Time No Known Allergies Allergy Verified 11/30/21 12:04 Current Medications Generic Name Dose Route Start Last Admin Trade Name Freq PRN Reason Stop Dose Admin Albuterol/Ipratropium 3 ml 12/19/21 21:00 12/20/21 14:59 Ipratropium-Albuterol 3 Ml Neb INHALATION 3 ml Q6H.RESPIRATORY NATALIE Administration Alprazolam 0.25 mg 12/19/21 18:00 12/20/21 08:17 Alprazolam 0.5 Mg Tablet PO 0.25 mg BID NATALIE Administration Aspirin 325 mg 12/20/21 09:00 12/20/21 08:19 Aspirin 325 Mg Tablet PO 325 mg DAILY NATALIE Administration Budesonide 0.5 mg 12/19/21 20:00 12/20/21 09:05 Budesonide 0.5 Mg/2 Ml Neb INHALATION 0.5 mg BID.RESPIRATORY NATALIE Administration Escitalopram Oxalate 10 mg 12/20/21 06:00 12/20/21 05:34 Escitalopram 10 Mg Tablet PO 10 mg QAM NATALIE Administration Vancomycin HCl 1,000 mg/ 250 mls @ 250 mls/hr 12/19/21 18:30 12/20/21 06:35 Sodium Chloride IV Infused Q12H NATALIE Infusion Protocol As Directed Sodium Chloride 1,000 mls @ 50 mls/hr 12/19/21 18:00 12/20/21 14:26 Sodium Chloride 0.9% IV 50 mls/hr .Q20H NATALIE Administration Piperacillin Sod/Tazobactam 50 mls @ 12.5 mls/hr 12/20/21 00:00 12/20/21 16:26 Sod 3.375 gm/ Sodium Chloride IV 12.5 mls/hr Q8H NATALIE Administration Protocol Levofloxacin 500 mg 12/20/21 06:00 12/20/21 05:34 Levofloxacin 500 Mg Tablet PO 12/25/21 05:59 500 mg DAILY@0600 NATALIE Administration Protocol Lidocaine HCl 1 applic 12/19/21 17:04 12/19/21 21:25 Lidocaine 2% Jelly 5 Ml TOPICAL 1 applic PRN PRN Administration pain Morphine Sulfate 30 mg 12/19/21 17:04 12/20/21 09:22 Morphine Er (12 Hr) 30 Mg Tablet PO 30 mg BID PRN Administration SEVERE CHRONIC Pain Oxycodone/Acetaminophen 1 tab 12/19/21 17:04 12/20/21 08:18 Oxycodone-Apap 5-325 Mg Tablet PO 1 tab Q6H PRN Administration SEVERE PAIN Tamsulosin HCl 0.8 mg 12/19/21 21:00 12/19/21 20:59 Tamsulosin 0.4 Mg Capsule PO 0.8 mg BEDTIME NATALIE Administration PFSH Acute PFSH: Medical History (Updated 12/20/21 @ 16:53 by Stanley Best MD) Anemia BPH loc w urin obs/LUTS Chronic prostatitis Chronic respiratory failure with hypoxia Diastolic CHF with preserved left ventricular function, NYHA class 2 Elevated PSA Mass of left chest wall Metastatic lung cancer (metastasis from lung to other site) Pulmonary nodule Renal cancer Left Single kidney Surgical History (Updated 12/20/21 @ 16:53 by Stanley Best MD) H/O hernia repair bilateral ingunial hernia repairs H/O prostate biopsy History of lobectomy of lung Port-A-Cath in place Previous back surgery x 2 S/p nephrectomy left Family History Father , AT AGE 58 Automobile accident Mother , AT AGE 89 CHF (congestive heart failure) Social History Smoking and tobacco status: former smoker Alcohol intake: never Marital status: Current occupational status: retired 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, 2 handrails in front though wide steps History of recent travel: No Vitals/I&O/Wt Last Vital Signs Temp 98 F 12/20/21 16:17 Pulse 70 12/20/21 16:17 Resp 18 12/20/21 16:17 BP 95/61 12/20/21 16:17 Pulse Ox 99 12/20/21 16:17 12/20/21 12/20/21 12/20/21 06:59 14:59 22:59 Intake Total 420 / 2200 1405 / 1505 100 / 1505 Output Total 300 / 600 300 / 300 Balance 120 / 1600 1105 / 1205 100 / 1205 Weight last 48 hrs Weight 175 lb Weight 175 lb Physical Exam Narrative: The patient was encountered in his hospital room. He was resting but was easily arousable. The pupils are equal. No carotid bruits are heard. Lungs are clear anteriorly. The patient has a sizable left sided chest wall mass with some open wounds. The heart is regular. The abdomen is moderately obese but is soft and nontender. Bowel sounds are present. The extremities reveal no edema. Data : 12/20/21 05:20 12/20/21 05:20 Micro: Microbiology 12/19/21 17:35 MRSA Culture - Final Nose 12/19/21 12:04 Blood Culture - Preliminary Blood NEGATIVE TO DATE 12/19/21 12:01 Blood Culture - Preliminary Blood NEGATIVE TO DATE 12/19/21 13:44 Bacterial Antigens - Final Urine Kidney 12/19/21 13:44 Legionella Urinary Antigen - Final Unknown Source CT Abd/Pel: Radiologist's impression: CT abdomen/pelvis 12/19/2021 IMPRESSION: ? 1.? No evidence of pulmonary embolus. 2.? Patchy infiltrates in RIGHT lower lobe consistent with pneumonia. 3.? History of prior LEFT lower lobectomy. 4.? LEFT lower chest wall and upper abdominal wall soft tissue metastatic disease or recurrence with enhancing soft tissue mass. Associated erosion of the LEFT lower ribs described above. Recommend oncology evaluation for staging. 5.? Enlarged LEFT retrocrural lymph node. 6.? Prior LEFT nephrectomy. 7.? Enlarged prostate measuring 5.1 CM. Evidence of bladder outlet obstruction. 8.? Low-attenuation RIGHT lower lower pole renal lesion may represent a complex cyst but indeterminant and slightly enlarged compared to 2020. This can be followed up with ultrasound on an elective basis. 9.? Soft tissue thickening involving the sigmoid colon LEFT lower quadrant with surrounding induration. Recommend correlation for diverticulitis. Suggestion of mild tethering in this area. Metastatic disease/neoplasm not excluded and r ecommend follow-up to resolution and/or further evaluation with colonoscopy. A&P Assessment and plan (1) GI bleed: The patient does have some changes in the sigmoid colon on CAT scan that could be consistent with inflammation. His exam is not terribly impressive here, however. He is on broad-spectrum antibiotics. Status: Acute (2) Anemia: As above. The patient is not sure certain that he wants to proceed with endoscopy. Given his overall picture of health, I have some difficulty thinking we're going make a lot of difference at this point. He is already being treated empirically with a proton pump inhibitor and broad-spectrum antibiotics. He certainly is not a candidate for a larger surgical procedure at this point. I will continue following with you for now. Status: Acute Coding Level of Care Code Acute Logistics Project Manager for [facility] Fwd Diagnoses GI bleed K92.2 Anemia D64.9
--- NOTE | 2021-12-20 17:02 | PC.NURSE ---
Patient hgb dropped below 7 over night. 1 unit of blood is currently running. Patient blood pressure has been running low, hold antihypertensives as of right now. Abx given. Pain meds given as needed. Patients remains at bedside helping with needs. Port accessed today. Will continue to monitor and track hoe operator report to night nurse.
[2021-12-20] MEDS: pantoprazole 40 mg SDV IVP (20:16)
[2021-12-20] MEDS: tamsulosin 0.4 mg Capsule 0.8 MG PO (20:17)
[2021-12-21] VITALS (22 sets, daily range): BP systolic 92–114; BP diastolic 59–76; PULSE 70–83; RESP 16–18; TEMP 36.3–37; O2SAT 95–98
[2021-12-21] MEDS: piperacillin-tazobactam 3.375 GM in sodium chloride 0.9% (plus) 50 ML IV ×2 (00:29→08:18)
[2021-12-21] MEDS: ipratropium-albuterol 3 mL Neb INHALATION ×4 (02:23→21:54)
[2021-12-21] MEDS: levoFLOXacin 500 mg Tablet PO (05:04)
[2021-12-21] MEDS: escitalopram 10 mg Tablet PO (05:05)
[2021-12-21] MEDS: oxyCODONE-APAP 5-325 mg Tablet 1 TAB PO ×4 (05:05→23:19)
[2021-12-21 05:45] LABS: Basophils % 0.1 %; Eosinophils # 0.5 10^3/uL (0.0-0.8); Eosinophils % 5.1 %; Hematocrit 26.8 % (42.0-52.0); Lymphocytes # 0.6 10^3/uL (0.8-4.8); Lymphocytes % 6.4 %; Mean Corpuscular HGB Conc 29.9 g/dL (30.0-36.0); Mean Corpuscular Hemoglobin 27.3 pg (28.0-34.0); Mean Corpuscular Volume 91.5 fl (80-94); Mean Platelet Volume 10.1 fL (7.4-10.4); Monocytes # 1.5 10^3/uL (0.2-0.9); Monocytes % 15.2 %; Neutrophils # 7.01 10^3/uL (1.8-7.7); Neutrophils % 72.9 %; Nucleated Red Blood Cells % 0 %; Platelet Count 191 10^3/cmm (130-400); Red Blood Count 2.93 10^6/uL (4.1-5.3); Red Cell Distribution Width 18.7 % (12.1-15.1); White Blood Count 9.6 10^3/uL (4.0-10.0)
[2021-12-21 06:03] LABS: Alanine Aminotransferase 9 U/L (0-41); Albumin Level 2.5 g/dL (3.5-5.2); Alkaline Phosphatase 83 IU/L (40-130); Anion Gap 10.6 (5-19); Aspartate Amino Transferase 10 U/L (0-40); Blood Urea Nitrogen 15 mg/dL (8-23); Calcium 11.2 mg/dL (8.5-10.5); Carbon Dioxide 26 mmol/L (22-29); Chloride 102 mmol/L (98-107); Globulin 2.8 g/dL (1.3-4.6); Glomerular Filtration Rate 96.1 mL/min (90-130); Glucose 95 mg/dL (65-115); Osmolality Calculated 281 mOsm/kg (285-295); Potassium 3.6 mmol/L (3.5-5.1); Sodium 135 mmol/L (136-145); Total Bilirubin 0.3 mg/dL (0.15-1.2); Total Protein 5.3 g/dL (6.6-8.7)
[2021-12-21 06:05] LABS: Vancomycin Trough 12.7 ug/mL (10-15)
--- NOTE | 2021-12-21 06:27 | P.PN_ITS ---
Subjective Subjective: The patient has no new complaints. Vitals/I&O/Wt Last Vital Signs Temp 98.6 F 12/21/21 04:00 Pulse 79 12/21/21 06:00 Resp 18 12/21/21 05:05 BP 99/62 12/21/21 04:00 Pulse Ox 97 12/21/21 04:00 12/20/21 12/20/21 12/21/21 14:59 22:59 06:59 Intake Total 1405 / 2745 990 / 2745 350 / 2745 Output Total 300 / 650 350 / 650 Balance 1105 / 2095 990 / 2095 0 / 2095 Weight last 48 hrs Weight 174 lb 9.6 oz Weight 175 lb Weight 175 lb Physical Exam Narrative: Abdomen remains soft. Data : 12/21/21 05:28 12/21/21 05:28 Micro: Microbiology 12/19/21 17:35 MRSA Culture - Final Nose 12/19/21 12:04 Blood Culture - Preliminary Blood NEGATIVE TO DATE 12/19/21 12:01 Blood Culture - Preliminary Blood NEGATIVE TO DATE 12/19/21 13:44 Bacterial Antigens - Final Urine Kidney A&P Assessment and plan (1) GI bleed: The patient does have some changes in the sigmoid colon on CAT scan that could be consistent with inflammation. His exam is not terribly impressive here, however. He is on broad-spectrum antibiotics. Status: Acute (2) Anemia: As above. Hemoglobin appears to be remaining stable at this point. The patient is comfortable not proceeding with endoscopy at this point. Given his overall picture of health, I have some difficulty thinking we're going make a lot of difference, anyway. He is already being treated empirically with a proton pump inhibitor and broad-spectrum antibiotics. He certainly is not a candidate for a larger surgical procedure at this point. I will continue following with you for now. Status: Acute Attestations Medical Necessity Statement*: See admitting service's notation. Coding Level of Care Code Acute Major Account Representative for [facility] Diagnoses GI bleed K92.2 Anemia D64.9
[2021-12-21] MEDS: morphine ER (12 HR) 30 mg tablet PO ×2 (06:31→20:09)
[2021-12-21] MEDS: vancomycin 1,000 MG in sodium chloride 0.9% 250 ML 250 MG IV (06:31)
[2021-12-21] MEDS: ALPRAZolam 0.5 mg Tablet 0.25 MG PO ×2 (08:17→17:12)
[2021-12-21] MEDS: ferrous sulfate EC 325 mg Tablet PO (08:18)
[2021-12-21] MEDS: budesonide 0.5 mg/2 mL Neb INHALATION ×2 (08:26→21:54)
[2021-12-21] MEDS: sodium chloride 0.9% 1,000 ML 50 ML IV (08:35)
--- NOTE | 2021-12-21 11:48 | P.PN_ITS ---
Subjective Subjective: No acute events overnight. Seen at bedside with daughter. Has remained hemodynamically stable and afebrile. Received monitor blood transfusion yesterday. Denies any new complaints. Denies any nausea, vomiting, headache. Vitals/I&O/Wt Last Vital Signs Temp 98.6 F 12/21/21 04:00 Pulse 80 12/21/21 08:33 Resp 18 12/21/21 11:06 BP 100/64 12/21/21 07:46 Pulse Ox 97 12/21/21 08:18 12/20/21 12/21/21 12/21/21 22:59 06:59 14:59 Intake Total 990 / 2395 350 / 2745 1027.5 / 1027.5 Output Total 350 / 650 Balance 990 / 2095 0 / 2095 1027.5 / 1027.5 Weight last 48 hrs Weight 79.197 kg Weight 79.379 kg Physical Exam Narrative: Skin: ?Left chest wall mass 15x 10cm.? Inferiorly area of 10 x 10 cm of tall erythema. Also small difficulty stage, stage IV pressure sore on sacrum with 0.5 x 0.5 cm opening Const: COMMON NORMALS: no acute distress and patient oriented x3 NUTRITIONAL APPEARANCE: cachectic (Temporal wasting) and thin HENMT: OTHER: Pallor present Chest: OTHER: Bilateral bronchial breath sounds, decreased air entry in the left, coarse crackles and right lower zone, left hemithorax with mass Cardio: OTHER: S1-S2 regular, no murmurs no gallop GI: OTHER: Soft, nontender, bowel sounds present, no organomegaly Neuro: COMMON NORMALS: patient oriented x3 OTHER: No focal deficits Data : 12/21/21 05:28 12/21/21 05:28 Micro: Microbiology 12/19/21 17:35 MRSA Culture - Final Nose 12/19/21 12:04 Blood Culture - Preliminary Blood NEGATIVE TO DATE 12/19/21 12:01 Blood Culture - Preliminary Blood NEGATIVE TO DATE 12/19/21 13:44 Bacterial Antigens - Final Urine Kidney A&P Assessment and plan (1) GI bleed: Status: Acute (2) Anemia: Status: Acute (3) Chronic respiratory failure with hypoxia: Status: Acute (4) Pneumonia: Status: Acute (5) Mass of left chest wall: Status: Acute (6) Metastatic lung cancer (metastasis from lung to other site): Status: Acute (7) Single kidney: Status: Acute Plan Anemia secondary to GI bleed: Stool for occult blood positive. Hemoglobin stable at 8. Post 1 unit blood transfusion. Appreciate surgical recommendations. As patient is poor surgical candidate given his multiple comorbidities it was decided to hold off on EGD/colonoscopy after shared discussion with patient's family and surgical team. Patient is already on treatment for gastritis with Protonix and Carafate along with holding off on aspirin and Eliquis. Confirmed with the same with the patient today. He is agreeable. Continue Protonix 40 mg twice daily, Carafate. Holding off on aspirin and Eliquis. Most likely patient needs to be discharged on aspirin 81 mg which he should be started in 2 weeks post discharge. Acute on chronic hypoxia: Acute hypoxia resolved. Patient back to baseline oxygen supplementation. Most likely secondary to pneumonia on baseline metastatic lung cancer. PSI score 118, risk class IV. Curb 65 score of 2 PE ruled out with negative CTA. CTA consistent with patchy infiltrate of right lower lobe. Blood cultures so far negative. Urine Legionella, bacterial antigen negative. COVID-19, flu swab negative. MRSA negative. Stop vancomycin and Zosyn. Monitor off antibiotics for next 24 hours. Oxygen supplementation keeping saturation over 88%. DuoNeb every 6 hour, budesonide twice daily. Left chest wall mass/wound: Continue wound care as before. Recent wound cultures consistent with Citrobacter and Pseudomonas both sensitive to Zosyn. History of pulmonary embolism: Off Eliquis as an outpatient for 3 weeks. Hold off on aspirin for now. Continue to monitor. Single kidney. Continue other chronic home medications including aspirin 325 mg daily, Lexapro, lidocaine patch, oxycodone and morphine as at home, Flomax. CODE STATUS: Limited resuscitation to chest compressions only. DO NOT INTUBATE. Lovenox for DVT prophylaxis. Regular diet. Protonix for PUD prophylaxis. PT/OT evaluation. Plan for day: Monitor hemoglobin daily. Protonix, Carafate. Stop antibiotics. Monitor for fever and low blood pressures. PT/OT. Discharge planning: If remains hemodynamically stable with labile hemoglobin within next 24 hours can plan to discharge home with home health versus possible SNF depending on how patient does with physical therapy. Attestations Medical Necessity Statement*: Requires further hospitalization for management of anemia secondary GI bleed in setting of chronic embolism, lung cancer while hemoglobin is monitored Time Spent in Patient Care: Greater than 35 minutes Coding Level of Care Code Acute V/[employer] Signal Officer for [facility] Fwd Diagnoses GI bleed K92.2 Anemia D64.9 Chronic respiratory failure with hypoxia J96.11 Pneumonia J18.9 Mass of left chest wall R22.2 Metastatic lung cancer (metastasis from lung to other site) C34.90 Single kidney Z90.5
[2021-12-21] MEDS: pantoprazole 40 mg SDV IVP ×2 (12:01→20:09)
[2021-12-21] MEDS: tamsulosin 0.4 mg Capsule 0.8 MG PO (20:09)
[2021-12-22] VITALS (13 sets, daily range): BP systolic 99–114; BP diastolic 64–75; PULSE 75–82; RESP 16–18; TEMP 36.7–37.1; O2SAT 95–99
[2021-12-22] MEDS: oxyCODONE-APAP 5-325 mg Tablet 1 TAB PO ×2 (03:14→08:18)
[2021-12-22] MEDS: ipratropium-albuterol 3 mL Neb INHALATION ×2 (03:34→08:27)
[2021-12-22 05:31] LABS: Basophils % 0.2 %; Eosinophils # 0.7 10^3/uL (0.0-0.8); Hematocrit 28.1 % (42.0-52.0); Hemoglobin 8.4 g/dL (11.7-16.6); Lymphocytes % 8.4 %; Mean Corpuscular HGB Conc 29.9 g/dL (30.0-36.0); Mean Corpuscular Hemoglobin 26.8 pg (28.0-34.0); Mean Corpuscular Volume 89.5 fl (80-94); Mean Platelet Volume 9.4 fL (7.4-10.4); Monocytes # 1.6 10^3/uL (0.2-0.9); Monocytes % 13.7 %; Neutrophils % 71.3 %; Nucleated Red Blood Cells % 0 %; Platelet Count 187 10^3/cmm (130-400); Red Blood Count 3.14 10^6/uL (4.1-5.3); Red Cell Distribution Width 18.5 % (12.1-15.1); White Blood Count 11.4 10^3/uL (4.0-10.0)
[2021-12-22 05:52] LABS: Alanine Aminotransferase 9 U/L (0-41); Albumin Level 2.6 g/dL (3.5-5.2); Alkaline Phosphatase 77 IU/L (40-130); Anion Gap 10.2 (5-19); Aspartate Amino Transferase 10 U/L (0-40); Blood Urea Nitrogen 8 mg/dL (8-23); Carbon Dioxide 27 mmol/L (22-29); Chloride 100 mmol/L (98-107); Creatinine Clr Calc Pharmacy 94.2125; Globulin 2.9 g/dL (1.3-4.6); Glomerular Filtration Rate 112.1 mL/min (90-130); Glucose 96 mg/dL (65-115); Osmolality Calculated 276 mOsm/kg (285-295); Potassium 3.2 mmol/L (3.5-5.1); Sodium 134 mmol/L (136-145); Total Bilirubin 0.2 mg/dL (0.15-1.2); Total Protein 5.5 g/dL (6.6-8.7)
[2021-12-22] MEDS: escitalopram 10 mg Tablet PO (06:20)
[2021-12-22] MEDS: acetaminophen 325 mg Tablet 650 MG PO (06:20)
[2021-12-22] MEDS: levoFLOXacin 500 mg Tablet PO (06:20)
[2021-12-22] MEDS: morphine ER (12 HR) 30 mg tablet PO (06:20)
[2021-12-22] MEDS: budesonide 0.5 mg/2 mL Neb INHALATION (08:02)
[2021-12-22] MEDS: ALPRAZolam 0.5 mg Tablet 0.25 MG PO (08:18)
[2021-12-22] MEDS: ferrous sulfate EC 325 mg Tablet PO (08:18)
[2021-12-22] MEDS: pantoprazole 40 mg SDV IVP (08:45)
--- NOTE | 2021-12-22 08:48 | P.PN_ITS ---
Subjective Subjective: The patient has no new complaints. He says he feels well. Vitals/I&O/Wt Last Vital Signs Temp 98.7 F 12/22/21 08:00 Pulse 79 12/22/21 08:10 Resp 16 12/22/21 08:18 BP 99/64 12/22/21 08:00 Pulse Ox 95 12/22/21 08:08 12/21/21 12/22/21 12/22/21 22:59 06:59 14:59 Intake Total 150 / 3425.833 1690 / 3425.833 Balance 150 / 3425.833 1690 / 3425.833 Weight last 48 hrs Weight 174 lb Weight 174 lb 9.6 oz Physical Exam Narrative: No significant change. Data : 12/22/21 05:20 12/22/21 05:20 A&P Assessment and plan (1) GI bleed: The patient does have some changes in the sigmoid colon on CAT scan that could be consistent with inflammation. His exam is not terribly impressive here, however. He is on broad-spectrum antibiotics. Status: Acute (2) Anemia: As above. Hemoglobin actually improved since yesterday. From my standpoint, particularly since we are holding off on endoscopy, I think the patient can be discharged whenever felt appropriate by hospitalist team. Status: Acute Attestations Medical Necessity Statement*: See admitting service's notation. Coding Level of Care Code Acute Area Supervisor for [facility] Diagnoses GI bleed K92.2 Anemia D64.9
--- NOTE | 2021-12-22 10:14 | PC.SOCIAL ---
IMM Update Pg. 2 of IMM updated and reviewed with patient and his , who verbalized understanding. Copy provided.
--- NOTE | 2021-12-22 12:21 | P.DS_ITS ---
Discharge Providers Date of Admission: 12/19/21 15:57 Date of Discharge: December 22, 2021 Attending Provider at Admission: Ethan Garcia MD Attending Provider at Discharge: Ethan Garcia MD Consults: Surgery: Dr. Best Primary Care Provider: Mikael Gibson DO Diagnoses at Discharge Discharge Diagnosis (1) GI bleed: Status: Acute (2) Anemia: Status: Acute (3) Mass of left chest wall: Status: Acute (4) Single kidney: Status: Acute (5) Metastatic lung cancer (metastasis from lung to other site): Status: Acute Reason for Visit 2 Reason for Visit: general weakness Hospital Course Hospital Course Néstor Orozco is a 66 year old male presented with metastatic lung cancer, with left-sided chest wall large mass, with inferior wound following with wound care clinic, also for sacral pressure ulcer, otherwise with remote history of r enal cancer, also with BPH, A. fib, COPD, depression, anxiety, anemia, HTN, HLD, other comorbidities who was recently in hospital when he was treated for septic shock with pressors secondary to infection of chest wall mass and was sent home on oral Levaquin.? During that hospitalization his wound cultures grew Pseudomonas and Acetobacter. He presents today because of weakness which has been ongoing since his last discharge along with shortness of breath.? Chronically he is on 3 to 3-1/2 L of oxygen and occasionally has been turned up to 4 L at home as well.? Today he is again on 4 L.? Complains of diarrhea today which started happening after he took multiple stool softeners secondary to constipation for last 4 to 5 days.? States sometimes bowel movements are soft and black in color.? States he has not taken any Eliquis for over 3 weeks as it was stopped by her primary care provider given concern for GI bleed and was switched over to aspirin 325 mg daily.? States has been taking Tylenol multiple times during the day because of pain.? Denies any subjective fever fever, dysuria.? Complaining of cough with expectoration.? Denies any sick contacts. Patient was admitted to the hospital for evaluation and management of weakness, mild hypoxia. At the start it was considered that patient symptoms are most likely secondary to possible sepsis and he was started on broad-spectrum antibiotics. His blood cultures has remained negative. As patient did not have any other signs of infection his antibiotics were stopped after sepsis was ruled out and he was monitored. During hospitalization he was found to have anemia with a hemoglobin going down to 6.7. Patient stool for occult blood were positive on his previous admission on 11/30. Patient's home dose of aspirin was stopped. Surgery was consulted for possible EGD and colonoscopy. Patient received 1 unit of PRBC. As per the surgical recommendation EGD and colonoscopy will not add to the treatment plan as patient has already stopped taking the aspirin and treatment with PPIs have already been started colonoscopy was deferred because patient did not a good candidate for large surgical procedure if any abnormality. The same was discussed with the patient's family and patient and they verbalized agreements. His hemoglobin during hospitalization remained stable. Patient remained hemodynamically stable and afebrile off antibiotics. He did well with physical therapy. Patient will benefit from a hospital bed given his physical capabilities, development of bedsores as he spends most of the time in bed given his advanced cancer, help with pain. He has been discharged in hemodynamically stable condition. Patient has been advised not to take aspirin 325 mg anymore. He can start aspirin 81 mg in 2 weeks. He is advised to repeat hemoglobin in 3 to 4 days and follow-up with his primary care provider within a week and to repeat hemoglobin a week after initiating aspirin. Physical Exam Narrative: Skin: ?Left chest wall mass 15x 10cm.? Inferiorly area of 10 x 10 cm of tall erythema. Also small difficulty stage, stage IV pressure sore on sacrum with 0.5 x 0.5 cm opening Const: COMMON NORMALS: no acute distress and patient oriented x3 NUT RITIONAL APPEARANCE: cachectic (Temporal wasting) and thin HENMT: OTHER: Pallor present Chest: OTHER: Bilateral bronchial breath sounds, decreased air entry in the left, coarse crackles and right lower zone, left hemithorax with mass Cardio: OTHER: S1-S2 regular, no murmurs no gallop GI: OTHER: Soft, nontender, bowel sounds present, no organomegaly Neuro: COMMON NORMALS: patient oriented x3 OTHER: No focal deficits Discharge Data Studies Completed and Pending Completed Studies During Hospitalization Category Date Time Status CT head wo con* [id number] Urgent Cat Scan 12/19/21 11:[address] abdomen pelvis [CT angio chest w abd pel w Cat Scan 12/19/21 13:06 Completed con] Urgent XR chest 1V portable [id number] Urgent Exams 12/19/21 11:40 Completed Pending at discharge Category Date Time Status Blood Culture Stat Lab 12/19/21 12:04 Results Radiology Impressions Chest X-Ray 12/19/21 11:40 IMPRESSION: Nonspecific mild bibasilar opacities, favoring atelectasis or pneumonia. This finding is stable when compared to the prior exam. Head CT 12/19/21 11:40 IMPRESSION: 1. No evidence of intracranial hemorrhage or mass effect. 2. Mild small vessel changes. Mild parenchymal volume loss. 3. Intracranial vascular calcification. 4. No acute intracranial findings. Chest/Abdomen/Pelvis CT 12/19/21 13:06 IMPRESSION: 1. No evidence of pulmonary embolus. 2. Patchy infiltrates in RIGHT lower lobe consistent with pneumonia. 3. History of prior LEFT lower lobectomy. 4. LEFT lower chest wall and upper abdominal wall soft tissue metastatic disease or recurrence with enhancing soft tissue mass. Associated erosion of the LEFT lower ribs described above. Recommend oncology evaluation for staging. 5. Enlarged LEFT retrocrural lymph node. 6. Prior LEFT nephrectomy. 7. Enlarged prostate measuring 5.1 CM. Evidence of bladder outlet obstruction. 8. Low-attenuation RIGHT lower lower pole renal lesion may represent a complex cyst but indeterminant and slightly enlarged compared to 2020. This can be followed up with ultrasound on an elective basis. 9. Soft tissue thickening involving the sigmoid colon LEFT lower quadrant with surrounding induration. Recommend correlation for diverticulitis. Suggestion of mild tethering in this area. Metastatic disease/neoplasm not excluded and re commend follow-up to resolution and/or further evaluation with colonoscopy. Notified Mic Robles MD at 12/19/2021 3:03 PM. Laboratory Results WBC 11.4 10^3/uL (4.0-10.0) H 12/22/21 05:20 RBC 3.14 10^6/uL (4.1-5.3) L 12/22/21 05:20 Hgb 8.4 g/dL (11.7-16.6) L 12/22/21 05:20 Hct 28.1 % (42.0-52.0) L 12/22/21 05:20 MCV 89.5 fl (80-94) 12/22/21 05:20 MCH 26.8 pg (28.0-34.0) L 12/22/21 05:20 MCHC 29.9 g/dL (30.0-36.0) L 12/22/21 05:20 RDW 18.5 % (12.1-15.1) H 12/22/21 05:20 Plt Count 187 10^3/cmm (130-400) 12/22/21 05:20 MPV 9.4 fL (7.4-10.4) 12/22/21 05:20 Neut % (Auto) 71.3 % 12/22/21 05:20 Lymph % (Auto) 8.4 % 12/22/21 05:20 [place] % (Auto) 13.7 % 12/22/21 05:20 Eos % (Auto) 6.0 % 12/22/21 05:20 Baso % (Auto) 0.2 % 12/22/21 05:20 Neut # (Auto) 8.10 10^3/uL (1.8-7.7) H 12/22/21 05:20 Lymph # (Auto) 1.0 10^3/uL (0.8-4.8) 12/22/21 05:20 [place] # (Auto) 1.6 10^3/uL (0.2-0.9) H 12/22/21 05:20 Eos # (Auto) 0.7 10^3/uL (0.0-0.8) 12/22/21 05:20 Baso # (Auto) 0.0 10^3/uL (0.0-0.1) 12/22/21 05:20 Nucleated RBC % (auto) 0 % 12/22/21 05:20 Nucleated RBCs # 0.0 /100WBC 12/22/21 05:20 Sodium 134 mmol/L (136-145) L 12/22/21 05:20 Potassium 3.2 mmol/L (3.5-5.1) L 12/22/21 05:20 Chloride 100 mmol/L (98-107) 12/22/21 05:20 Carbon Dioxide 27 mmol/L (22-29) 12/22/21 05:20 Anion Gap 10.2 (5-19) 12/22/21 05:20 BUN 8 mg/dL (8-23) 12/22/21 05:20 Creatinine 0.7 mg/dL (0.7-1.2) 12/22/21 05:20 GFR Calculation 112.1 mL/min (90-130) 12/22/21 05:20 Glucose 96 mg/dL (65-115) 12/22/21 05:20 Estimat Average Glucose 103 12/20/21 05:20 Hemoglobin A1c 5.2 % (4.0-6.0) 12/20/21 05:20 Calculated Osmolality 276 mOsm/kg (285-295) L 12/22/21 05:20 Calcium 12.0 mg/dL (8.5-10.5) H 12/22/21 05:20 Iron 21 ug/dL (59-158) L 12/19/21 12:01 TIBC 188 mcg/dl 12/19/21 12:01 % Saturation 11.1 % (20-50) L 12/19/21 12:01 Unsat Iron Binding 167 ug/dL (112-347) 12/19/21 12:01 Total Bilirubin 0.2 mg/dL (0.15-1.2) 12/22/21 05:20 AST 10 U/L (0-40) 12/22/21 05:20 ALT 9 U/L (0-41) 12/22/21 05:20 Alkaline Phosphatase 77 IU/L (40-130) 12/22/21 05:20 Troponin T Baseline 47 ng/L (0-15) H 12/19/21 12:01 Troponin T 120 Minute 37.75 ng/L (0-15) H 12/19/21 14:42 Delta Troponin T -9.25 ABS# (0-10) L 12/19/21 14:42 Troponin T Hi Sens 6Hr 36.72 ng/L (0-15) H 12/19/21 18:13 Troponin T Hi Sens 6Hr Delta -10.28 ng/L (0-12) L 12/19/21 18:13 NT-Pro-B Natriuret Pep 203 pg/mL (0-125) H 12/19/21 12:01 Total Protein 5.5 g/dL (6.6-8.7) L 12/22/21 05:20 Albumin 2.6 g/dL (3.5-5.2) L 12/22/21 05:20 Globulin 2.9 g/dL (1.3-4.6) 12/22/21 05:20 Triglycerides 164 mg/dL (0-150) H 12/20/21 05:20 Cholesterol 132 mg/dL (0-200) 12/20/21 05:20 LDL Cholesterol, Calc 75 mg/dL (50-129) 12/20/21 05:20 Total VLDL Cholesterol 33 mg/dL (0-30) H 12/20/21 05:20 HDL Cholesterol 24 mg/dL (60-100) L 12/20/21 05:20 Cholesterol/HDL Ratio 5.50 mg/dL (1.0-5.00) H 12/20/21 05:20 Procalcitonin 0.37 ng/mL (0-0.5) 12/19/21 12:01 TSH 0.66 uIU/mL (0.27-4.20) 12/19/21 12:01 Urine Color Yellow (Yellow) 12/19/21 13:44 Urine Appearance Sl hazy (CLEAR) 12/19/21 13:44 Urine pH 5 (5-7) 12/19/21 13:44 Ur Specific [place] 1.025 (1.005-1.030) 12/19/21 13:44 Urine Protein Neg (Negative) 12/19/21 13:44 Urine Glucose (UA) Norm (Normal) 12/19/21 13:44 Urine Ketones Negative (Negative) 12/19/21 13:44 Urine Blood Neg (Negative) 12/19/21 13:44 Urine Nitrate Negative (Negative) 12/19/21 13:44 Urine Bilirubin Neg (Negative) 12/19/21 13:44 Urine Urobilinogen 1 mg/dL (Negative) H 12/19/21 13:44 Ur Leukocyte Esterase Negative (Negative) 12/19/21 13:44 Urine RBC None /hpf (0-2) 12/19/21 13:44 Urine WBC 0-4 /hpf (0-5) H 12/19/21 13:44 Ur Squamous Epith Cells 0-4 /hpf (0-5) H 12/19/21 13:44 Calcium Oxalate Crystal 15-25 /hpf H 12/19/21 13:44 Amorphous Sediment Not Reportable 12/19/21 13:44 Urine Bacteria Trace /hpf (NONE) 12/19/21 13:44 Hyaline Casts 0-4 /lpf H 12/19/21 13:44 Urine Mucus Trace /hpf 12/19/21 13:44 Vancomycin Trough 12.7 ug/mL (10-15) 12/21/21 05:28 Coronavirus 229E (PCR) Not detected (NOT DETECT) 12/19/21 16:10 SARS-CoV-2 (PCR) Not detected (NOT DETECT) 12/19/21 16:10 Blood Type A Positive 12/19/21 12:01 Rho(D) Type Positive 12/19/21 12:01 Antibody Screen Negative 12/19/21 12:01 Crossmatch See Detail 12/19/21 12:01 Vitals Last Vital Signs Temp 98.1 F 12/22/21 11:33 Pulse 75 12/22/21 11:33 Resp 16 12/22/21 11:33 BP 112/73 12/22/21 11:33 Pulse Ox 99 12/22/21 11:33 Discharge Plan Discharge Patient Disposition: Home Condition: Stable Prescriptions: New levofloxacin 500 mg Tablet 500 mg PO DAILY@0600 Qty: 3 0RF amoxicillin-pot clavulanate [Augmentin] 875-125 mg tablet 1 tab PO BID Qty: 6 0RF Continued escitalopram oxalate 10 mg tablet 10 mg PO QAM 0RF albuterol sulfate [Ventolin HFA] 90 mcg/actuation HFA aerosol inhaler 2 puff INHALATION Q6H PRN (Reason: Shortness Of Breath) 0RF acetaminophen [Tylenol Arthritis Pain] 650 mg tablet extended release 1,300 mg PO BID PRN (Reason: Pain) 0RF morphine 30 mg Tablet Extended Release 30 mg PO BID PRN (Reason: Pain) 0RF oxycodone 15 mg Tablet 15 mg PO Q4H PRN (Reason: Pain) 0RF alprazolam 0.25 mg Tablet 0.25 mg PO BID 0RF fluticasone propion-salmeterol [Advair Diskus] 500-50 mcg/dose Blister With Device 1 ea INHALATION QAM 0RF polyethylene glycol 3350 [Miralax] 17 gram/dose Powder 17 g PO QAM 0RF Rx Instructions: MIXES IN JUICE lidocaine HCl 2 % Jelly 1 applic topical PRN PRN (Reason: pain) Qty: 30 0RF pantoprazole 40 mg Tablet,Delayed Release (Dr/Ec) 40 mg PO BIDWM Qty: 84 0RF tamsulosin 0.4 mg capsule 0.8 mg PO BEDTIME 0RF Changed ferrous sulfate 325 mg (65 mg iron) tablet 325 mg PO DAILY Qty: 90 0RF Discontinued aspirin 325 mg Tablet 325 mg PO DAILY 0RF Discharge Orders: Discharge Order (Routine); Ordered 12/22/21 Ordered By: Ethan Garcia Other Ambulatory Orders: DME: Hospital Bed (Order) Location: None Selected Ordered By: Ethan Garcia Referrals: Mikael Gibson DO [Primary Care Provider] - 7-10 days Discharge Diet: Usual diet Discharge Activity: Resume usual activity Patient Instructions: Opioid Safety Activity Restrictions/Additional Instructions: CBC should be checked in a week. Please follow-up with your primary care provider within next 1 week. Take Augmentin Levaquin which is the antibiotics for next 3 days. Do not take aspirin 325 mg anymore. Can start aspirin 81 mg in 2 weeks. After starting aspirin repeat hemoglobin in a week. Discharge Attestations Time Spent in Discharge Care*: greater than 30 min Specific Discharge Activities: educating patient, educating and/or supporting family/caregiver, discussing with pcp/other providers, discussing with case coordinator/social workers/dc planners, documenting/other paperwork and evaluating patient/reviewing data Status at Discharge: Cognitive status at discharge: cognitively intact , Behavioral status at discharge: cooperative , Functional status at discharge: uses cane/walker , Overall status at discharge: patient is back to baseline Quality Metrics Clinical Quality Measures [ No reported AMI, CVA or VTE this stay] Coding Level of Care Code Acute Chg DC note Diagnoses GI bleed K92.2 Anemia D64.9 Mass of left chest wall R22.2 Single kidney Z90.5 Metastatic lung cancer (metastasis from lung to other site) C34.90
== END 2021-12-22 14:19 | disposition home health service (06) | DRG 811 ==
LOC: ER 15:57 → MEDSURG 16:03
PROVIDERS: Admitting Provider Student in an Organized Health Care Education/Training Program; Emergency Provider Emergency Medicine; PCP Electrodiagnostic Medicine; Visit Provider Student in an Organized Health Care Education/Training Program
DX: D64.9 Anemia, unspecified (principal); L89.153 Pressure ulcer of sacral region, stage 3; J18.9 Pneumonia, unspecified organism; J96.21 Acute and chronic respiratory failure with hypoxia; C34.90 Malignant neoplasm of unspecified part of unspecified bronchus or lung; J44.0 Chronic obstructive pulmonary disease with (acute) lower respiratory infection; I50.30 Unspecified diastolic (congestive) heart failure; N13.8 Other obstructive and reflux uropathy; K92.2 Gastrointestinal hemorrhage, unspecified; Z85.528 Personal history of other malignant neoplasm of kidney; I48.91 Unspecified atrial fibrillation; F41.9 Anxiety disorder, unspecified; F32.A Depression, unspecified; I11.0 Hypertensive heart disease with heart failure; E78.5 Hyperlipidemia, unspecified; Z87.01 Personal history of pneumonia (recurrent); N40.1 Benign prostatic hyperplasia with lower urinary tract symptoms; N41.1 Chronic prostatitis; Z90.5 Acquired absence of kidney; Z79.891 Long term (current) use of opiate analgesic; Z79.51 Long term (current) use of inhaled steroids; Z90.2 Acquired absence of lung [part of]; R22.2 Localized swelling, mass and lump, trunk; G89.3 Neoplasm related pain (acute) (chronic); Z87.891 Personal history of nicotine dependence
CPT/HCPCS: 36415; 36430; 70450; 71045; 71275; 74177; 80053; 80061; 80202; 81001; 83036; 83540; 83550; 83880; 84145; 84443; 84484; 85014; 85018; 85025; 86403; 86850; 86900; 86920; 87040; 87449; 87635; 87641; 93005; 94640; 94664; 96365; 96372; 97116; 97161; 97530; 99285; C9113; J1650; J2543; J3370; J7030; J7050; J7626; P9016; Q9967

== ENCOUNTER → 2021-12-26 13:32 | Outpatient (BNVA) | payer MEDICARE, SELFPAY | PROVIDERS: PCP Electrodiagnostic Medicine; Visit Provider Nurse Practitioner Family | DX: T81.89XA Other complications of procedures, not elsewhere classified, initial encounter (principal); Y83.8 Other surgical procedures as the cause of abnormal reaction of the patient, or of later complication, without mention of misadventure at the time of the procedure; I96 Gangrene, not elsewhere classified; Z87.891 Personal history of nicotine dependence; L98.491 Non-pressure chronic ulcer of skin of other sites limited to breakdown of skin | CPT/HCPCS: 99213; A6252 ==

== ENCOUNTER → 2022-01-02 13:45 | Outpatient (BNVA) | payer MEDICARE, SELFPAY | PROVIDERS: PCP Electrodiagnostic Medicine; Visit Provider Thoracic Surgery (Cardiothoracic Vascular Surgery) | DX: I96 Gangrene, not elsewhere classified (principal); T81.89XA Other complications of procedures, not elsewhere classified, initial encounter; L98.491 Non-pressure chronic ulcer of skin of other sites limited to breakdown of skin | CPT/HCPCS: 11042 ==

== ENCOUNTER 2022-01-03 11:27 | Outpatient (CLI) | payer MEDICARE, SELFPAY ==
[2022-01-03 11:49] LABS: Hematocrit 30.7 % (42.0-52.0); Hemoglobin 8.9 g/dL (11.7-16.6)
== END 2022-01-03 11:28 | disposition home or self-care (01) ==
LOC: LAB 11:30
PROVIDERS: PCP Electrodiagnostic Medicine; Visit Provider Electrodiagnostic Medicine
DX: D64.9 Anemia, unspecified (principal)
CPT/HCPCS: 85014; 85018

== ENCOUNTER 2022-01-19 20:53 | Emergency (ER) | payer MEDICARE, SELFPAY ==
[2022-01-19 20:55] VITALS: BP 101/67; PULSE 91; RESP 12; TEMP 36.4; O2SAT 100; BMI 22.5
--- NOTE | 2022-01-19 21:35 | XRR_ITS ---
PROCEDURE INFORMATION: Exam: XR Chest Exam date and time: 01/19/2022 9:42 PM Age: 66 years old Clinical indication: Shortness of breath; Patient HX: AMS; Additional info: SOB TECHNIQUE: Imaging protocol: XR of the chest. Views: 1 view. COMPARISON: CR XR chest 1V portable [id number] 12/19/2021 10:44 AM FINDINGS: Tubes, catheters and devices: Right chest tunneled Port-A-Cath terminates distal SVC. Lungs: Hypoaerated lungs are unchanged from prior. No focal airspace consolidation. Left lung granulomas. Pleural spaces: Unremarkable. No pleural effusion. No pneumothorax. Heart/Mediastinum: Unremarkable. No cardiomegaly. Diaphragm: Asymmetric left diaphragm elevation. Bones/joints: Unremarkable. XR/XR chest 1V portable [id number] IMPRESSION: No focal acute pulmonary disease.
[2022-01-19 21:41] VITALS: BP 93/62
--- NOTE | 2022-01-19 21:41 | W.ED.WEAKNES ---
HPI - Weakness General: Chief complaint: Weakness Stated complaint: AMS Time Seen by Provider: 01/19/22 20:54 Source: family and EMS Mode of arrival: EMS Limitations: altered mental status History of Present Illness: 66-year-old male has extensive medical history including stage IV lung cancer patient has been admitted multiple times actually just admitted to [facility] was discharged there last week on to hospice. had disagreement with hospice pulled patient off hospice he is on multiple pain medicine took pain medicines tonight and his became altered here he will wake up tell me his name he told me the year but is very lethargic does have pinpoint pupils. Spoke to and she states that he also has history of anemia and hypercalcemia no fever he does have open wound to his left chest from a procedure up to [facility] to remove I believe an abscess no drainage from that wound Review of Systems General: Reports: ROS unobtainable due to mental status [facility] ED PFSH: Medical History (Updated 01/19/22 @ 22:24 by Lucio Cueto MD) Anemia BPH loc w urin obs/LUTS Chronic prostatitis Chronic respiratory failure with hypoxia Diastolic CHF with preserved left ventricular function, NYHA class 2 Elevated PSA Mass of left chest wall Metastatic lung cancer (metastasis from lung to other site) Pneumonia Pulmonary nodule Renal cancer Left Single kidney Surgical History (Updated 12/20/21 @ 16:53 by Stanley Best MD) H/O hernia repair bilateral ingunial hernia repairs H/O prostate biopsy History of lobectomy of lung Port-A-Cath in place Previous back surgery x 2 S/p nephrectomy left Family History Father , AT AGE 58 Automobile accident Mother , AT AGE 89 CHF (congestive heart failure) Social History Smoking and tobacco status: former smoker Alcohol intake: never Marital status: Current occupational status: retired 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, 2 handrails in front though wide steps History of recent travel: No Physical Exam Const: EXAM LIMITATIONS: altered mental status GENERAL APPEARANCE: ill appearing and frail appearing HENMT: COMMON NORMALS: normocephalic and atraumatic HEAD & SCALP: normocephalic and atraumatic Eye: COMMON NORMALS: negative for Equal, round and reactive pupils present (pinpoint) and EOMs intact bilaterally PUPIL: No Equal, round and reactive pupils present (pinpoint) Neck/C-Spine: COMMON NORMALS: full ROM and supple Chest: COMMONS NORMALS: normal inspection of the chest and normal palpation of entire chest wall Resp: COMMON NORMALS: normal respiratory effort, No retractions, No use of accessory muscles and clear to auscultation bilaterally AUSCULTATION: clear to auscultation bilaterally Cardio: COMMON NORMALS: regular rate, regular rhythm and No murmurs present (Cardio) RATE: regular rate RHYTHM: regular rhythm GI: COMMON NORMALS: Normal to inspection, nondistended, normoactive bowel sounds present, Soft to palpation, non-tender and no masses PALPATION: Yes Soft to palpation Extremity: COMMON NORMALS: normal to inspection and full ROM Neuro: COMMON NORMALS: moves all extremities Psych: COMMON NORMALS: negative for mental status grossly normal Skin: COMMON NORMALS: no rashes or lesions noted and no wounds NARRATIVE SKIN EXAM: Wound to the left chest with packing in place no signs of cellulitis or drainage GENERAL SKIN EXAM: no rashes or lesions noted Course Vital Signs: Vital signs: Vital Signs Temperature 97.5 F L 01/19/22 20:55 Pulse Rate 91 01/19/22 20:55 Respiratory Rate 12 01/19/22 20:55 Blood Pressure 117/74 01/19/22 22:28 Pulse Oximetry 100 01/19/22 20:55 MDM - Weakness Medical Decision Making Patient presents here with altered mental status likely due to his medication he did have an elevated white count at first was wanting him admitted patient was seen by the hospitalist and she has now changed her mind I spoke to her at length she is want him to be reevaluated for hospice she does not want any treatment here at home she has an appoint with her PCP tomorrow this plans on seeing him and discussing hospice options again. Lab Data : 01/19/22 20:23 01/19/22 20:23 Radiology Impressions Chest X-Ray 01/19/22 21:35 IMPRESSION: No focal acute pulmonary disease. Laboratory Results WBC 21.2 10^3/uL (4.0-10.0) H 01/19/22 20:23 RBC 2.87 10^6/uL (4.1-5.3) L 01/19/22 20: Hgb 7.8 g/dL (11.7-16.6) L 01/19/22: Hct 26.2 % (42.0-52.0) L 01/19/22: MCV 91.3 fl (80-94) 01/19/22: MCH 27.2 pg (28.0-34.0) L 01/19/22: MCHC 29.8 g/dL (30.0-36.0) L 01/19/22: RDW 22.3 % (12.1-15.1) H 01/19/22: Plt Count 167 10^3/cmm (130-400) 01/19/22: MPV 9.6 fL (7.4-10.4) 01/19/22: Neut % (Auto) 86.5 % 01/19/22: Lymph % (Auto) 3.1 % 01/19/22: [place] % (Auto) 8.3 % 01/19/22: Eos % (Auto) 1.3 % 01/19/22: Baso % (Auto) 0.2 % 01/19/22: Neut # (Auto) 18.35 10^3/uL (1.8-7.7) H 01/19/22: Lymph # (Auto) 0.7 10^3/uL (0.8-4.8) L 01/19/22: [place] # (Auto) 1.8 10^3/uL (0.2-0.9) H 01/19/22: Eos # (Auto) 0.3 10^3/uL (0.0-0.8) 01/19/22: Baso # (Auto) 0.0 10^3/uL (0.0-0.1) 01/19/22: Nucleated RBC % (auto) 0 % 01/19/22: Nucleated RBCs # 0.0 /100WBC 01/19/22 20: Sodium 140 mmol/L (136-145) 01/19/22: Potassium 4.4 mmol/L (3.5-5.1) 01/19/22: Chloride 106 mmol/L (98-107) 01/19/22 20: Carbon Dioxide 23 mmol/L (22-29) 01/19/22 20: Anion Gap 15.4 (5-19) 01/19/22 20: BUN 16 mg/dL (8-23) 01/19/22 20: Creatinine 0.7 mg/dL (0.7-1.2) 01/19/22 20: GFR Calculation 112.1 mL/min (90-130) 01/19/22 20: Glucose 100 mg/dL (65-115) 01/19/22 20: Calculated Osmolality 291 mOsm/kg (285-295) 01/19/22: Lactic Acid 1.1 mmol/L (0.5-2.2) 01/19/22 21:54 Calcium 9.2 mg/dL (8.5-10.5) 01/19/22 20: Total Bilirubin 0.2 mg/dL (0.15-1.2) 01/19/22 20: AST 12 U/L (0-40) 01/19/22 20: ALT 8 U/L (0-41) 01/19/22 20: Alkaline Phosphatase 100 IU/L (40-130) 01/19/22 20: Total Protein 5.7 g/dL (6.6-8.7) L 01/19/22 20: Albumin 2.8 g/dL (3.5-5.2) L 01/19/22 20: Globulin 2.9 g/dL (1.3-4.6) 01/19/22 20:23 Discharge Plan Discharge Patient Disposition: Home Clinical Impression: Lung cancer, AMS (altered mental status) Condition: Stable Prescriptions: No Action escitalopram oxalate 10 mg tablet 10 mg PO QAM 0RF albuterol sulfate [Ventolin HFA] 90 mcg/actuation HFA aerosol inhaler 2 puff INHALATION Q6H PRN (Reason: Shortness Of Breath) 0RF acetaminophen [Tylenol Arthritis Pain] 650 mg tablet extended release 1,300 mg PO BID PRN (Reason: Pain) 0RF morphine 30 mg Tablet Extended Release 30 mg PO BID PRN (Reason: Pain) 0RF oxycodone 15 mg Tablet 15 mg PO Q4H PRN (Reason: Pain) 0RF alprazolam 0.25 mg Tablet 0.25 mg PO BID 0RF fluticasone propion-salmeterol [Advair Diskus] 500-50 mcg/dose Blister With Device 1 ea INHALATION QAM 0RF polyethylene glycol 3350 [Miralax] 17 gram/dose Powder 17 g PO QAM 0RF Rx Instructions: MIXES IN JUICE lidocaine HCl 2 % Jelly 1 applic topical PRN PRN (Reason: pain) Qty: 30 0RF pantoprazole 40 mg Tablet,Delayed Release (Dr/Ec) 40 mg PO BIDWM Qty: 84 0RF tamsulosin 0.4 mg capsule 0.8 mg PO BEDTIME 0RF levofloxacin 500 mg Tablet 500 mg PO DAILY@0600 Qty: 3 0RF Augmentin 875-125 mg tablet 1 tab PO BID Qty: 6 0RF ferrous sulfate 325 mg (65 mg iron) tablet 325 mg PO DAILY Qty: 90 0RF Discharge Orders: Discharge ED (Routine); Ordered 01/19/22 Ordered By: Lucio Cueto Referrals: Mikael Gibson DO [Primary Care Provider] - Discharge Diet: Advance as tolerated Discharge Activity: Resume usual activity Patient Instructions: Altered Mental Status (ED) Coding Level of Care Code ED Invoicing Specialist for Manny Fwjoey Exam Comprehensive
[2022-01-19 21:42] LABS: Basophils % 0.2 %; Eosinophils # 0.3 10^3/uL (0.0-0.8); Eosinophils % 1.3 %; Hematocrit 26.2 % (42.0-52.0); Hemoglobin 7.8 g/dL (11.7-16.6); Lymphocytes # 0.7 10^3/uL (0.8-4.8); Lymphocytes % 3.1 %; Mean Corpuscular HGB Conc 29.8 g/dL (30.0-36.0); Mean Corpuscular Hemoglobin 27.2 pg (28.0-34.0); Mean Corpuscular Volume 91.3 fl (80-94); Mean Platelet Volume 9.6 fL (7.4-10.4); Monocytes # 1.8 10^3/uL (0.2-0.9); Monocytes % 8.3 %; Neutrophils # 18.35 10^3/uL (1.8-7.7); Neutrophils % 86.5 %; Nucleated Red Blood Cells % 0 %; Platelet Count 167 10^3/cmm (130-400); Red Blood Count 2.87 10^6/uL (4.1-5.3); Red Cell Distribution Width 22.3 % (12.1-15.1); White Blood Count 21.2 10^3/uL (4.0-10.0)
[2022-01-19] MEDS: sodium chloride 0.9% 1,000 ML 999 ML IV (21:48)
[2022-01-19] MEDS: piperacillin-tazobactam 3.375 GM in sodium chloride 0.9% (plus) 50 ML IV (21:49)
[2022-01-19 21:52] LABS: Alanine Aminotransferase 8 U/L (0-41); Albumin Level 2.8 g/dL (3.5-5.2); Alkaline Phosphatase 100 IU/L (40-130); Anion Gap 15.4 (5-19); Aspartate Amino Transferase 12 U/L (0-40); Blood Urea Nitrogen 16 mg/dL (8-23); Calcium 9.2 mg/dL (8.5-10.5); Carbon Dioxide 23 mmol/L (22-29); Chloride 106 mmol/L (98-107); Globulin 2.9 g/dL (1.3-4.6); Glomerular Filtration Rate 112.1 mL/min (90-130); Glucose 100 mg/dL (65-115); Osmolality Calculated 291 mOsm/kg (285-295); Potassium 4.4 mmol/L (3.5-5.1); Sodium 140 mmol/L (136-145); Total Bilirubin 0.2 mg/dL (0.15-1.2); Total Protein 5.7 g/dL (6.6-8.7)
[2022-01-19 22:25] LABS: Lactic Sepsis W/Reflex 1.1 mmol/L (0.5-2.2)
[2022-01-19 22:28] VITALS: BP 117/74
--- NOTE | 2022-01-19 22:55 | P.MISC_ITS ---
Miscellaneous Note Note: ER physician called me to evaluate the patient When I entered the room patient was verbally redirectable was able to tell me his name, he was able to tell me name of his however unable to report his date of He is complaining of pain At the time of my evaluation he looks cachectic, malnourished Blood pressure stable Afebrile Currently on 4 L nasal cannula Left open wound does not look infected has good granulation tissue No active drainage No audible stridor or wheezing Distended abdomen nontender Ptosis of eyes noted Patient is drowsy however verbally redirectable Assessment and plan Patient is seeing Dr. Ann for pain management, Mrs. Orozco called off hospice services because of an issue regarding a hospital bed. Hospice company at [place] wanted to replace his hospital bed, this suggestion was not supported by Mrs. Orozco, she talked to hospice volunteer coordinator who asked her to follow-up with her on Sunday. Patient is getting morphine 30 mg 3 times a day along oxycodone every 4 hours[address] Mrs. Orozco is reluctant to give him pain medications with fear of over medicating him as he was a bit confused this morning which makes her very anxious He has an appointment with Dr. Wagoner in the morning I recommended her to follow-up with hospice company and let Dr. Wagoner and Dr. Ann manage his pain. I am reluctant to prescribe more opioids at this point. Patient's is in agreement. she is willing to reconnect with the hospice provider in [place]. She will follow-up with Dr. Balderas in the morning. ER physician was notified
== END 2022-01-19 22:45 | disposition home or self-care (01) ==
PROVIDERS: Emergency Provider Emergency Medicine; PCP Electrodiagnostic Medicine
DX: C34.90 Malignant neoplasm of unspecified part of unspecified bronchus or lung (principal); R41.82 Altered mental status, unspecified; Z79.899 Other long term (current) drug therapy; Z79.891 Long term (current) use of opiate analgesic; D72.829 Elevated white blood cell count, unspecified; Z87.891 Personal history of nicotine dependence; Z90.2 Acquired absence of lung [part of]; Z90.5 Acquired absence of kidney
CPT/HCPCS: 71045; 80053; 83605; 85025; 96365; 99283; J2543; J3370; J7030; J7050

== ENCOUNTER 2022-02-02 12:12 | Inpatient (IN) | payer OTHER, MEDICARE, SELFPAY ==
--- NOTE | 2022-02-02 12:16 | XRR_ITS ---
PROCEDURE INFORMATION: Exam: XR Chest Exam date and time: 02/02/2022 12:29 PM Age: 66 years old Clinical indication: Cough and dyspnea; Prior surgery; Surgery type: Lt lower lobe lt kidney; Patient HX: Cancer (type)--lt lung lt kidney; Additional info: Dyspnea/cough TECHNIQUE: Imaging protocol: XR of the chest. Views: 1 view. Total images: 1 COMPARISON: CR (CHEST, ) 01/19/2022 9:42 PM FINDINGS: Tubes, catheters and devices: A right infusion port is present. Lungs: Stable left pleuroparenchymal disease. Benign granulomatous disease of the lung is noted. Pleural spaces: No pneumothorax. Heart/Mediastinum: Heart size is stable when compared to the prior exam. Diaphragm: There is nonspecific elevation of the left hemidiaphragm. Bones/joints: Osseous structures are unchanged from the prior exam. XR/XR chest 1V portable [id number] IMPRESSION: Stable left pleuroparenchymal disease.
[2022-02-02 12:48] VITALS: BP 103/71; PULSE 121; RESP 26; O2SAT 99; BMI 25.8
--- NOTE | 2022-02-02 12:49 | W.ED.GENADLT ---
HPI - General Adult General: Chief complaint: General Medical Stated complaint: LUNG CANCER/LABS Time Seen by Provider: 02/02/22 12:15 Source: family Mode of arrival: EMS Limitations: no limitations History of Present Illness: This patient was transported to the hospital by EMS from his home. He is accompanied by his and daughter. His predominantly gives the history. 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 She states that she thinks he has pneumonia and wants him admitted. She states that he has had fever at home to 99+ degrees. She states his food intake is markedly diminished. He has been drinking some fluids and made urine overnight. She states that he is not having vomiting but is not had any stools either. No known exposure to infection. Associated symptoms: Reports decreased appetite, fevers/chills and malaise; Deny chest pain, headache(s), nausea, palpitations or vomiting Review of Systems Const: Reports: fever(s), change in appetite and malaise ENMT: Denies: odynophagia Card: Denies: chest pain, palpitations or irregular heart rhythm Resp: Denies: wheezing or stridor GI: Denies: nausea, vomiting or diarrhea : Denies: flank pain, difficulty urinating or urinary frequency Musc: Denies: back pain, extremity pain or extremity swelling Skin/Breast: Reports: sores and non-healing lesions Neuro: Denies: headache(s) PFSH ED PFSH: Medical History Anemia BPH loc w urin obs/LUTS Chronic prostatitis Chronic respiratory failure with hypoxia Diastolic CHF with preserved left ventricular function, NYHA class 2 Elevated PSA Mass of left chest wall Metastatic lung cancer (metastasis from lung to other site) Pneumonia Pulmonary nodule Renal cancer Left Single kidney Surgical History H/O hernia repair bilateral ingunial hernia repairs H/O prostate biopsy History of lobectomy of lung Port-A-Cath in place Previous back surgery x 2 S/p nephrectomy left Family History Father , AT AGE 58 Automobile accident Mother , AT AGE 89 CHF (congestive heart failure) Social History Smoking and tobacco status: former smoker Alcohol intake: never Marital status: Current occupational status: retired 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 He will respond to questions in short 1-2 word answers. He generally appears unwell. Const: COMMON NORMALS: alert GENERAL APPEARANCE: frail appearing NUTRITIONAL APPEARANCE: underweight HENMT: COMMON NORMALS: normocephalic, atraumatic and Normal nasal mucous membranes and turbinates present HEAD & SCALP: normocephalic and atraumatic NOSE: Normal nasal mucous membranes and turbinates present MOUTH: moist mucous membranes not abnormal TEETH & GINGIVA: Yes abnormal tooth and associated gingiva Eye: COMMON NORMALS: Equal, round and reactive pupils present, EOMs intact bilaterally and no scleral icterus PUPIL: Yes Equal, round and reactive pupils present Neck/C-Spine: COMMON NORMALS: full ROM, no JVD and No carotid bruits Chest: OTHER: Chest is remarkable for a [id number] in the right upper chest. He does have a dressing over his left lateral chest covering a draining fistula. Resp: COMMON NORMALS: No retractions and No use of accessory muscles AUSCULTATION: diminished lung sounds bilateral Cardio: COMMON NORMALS: no JVD, regular rhythm, No murmurs present (Cardio) and Peripheral pulses 2+ throughout RHYTHM: regular rhythm PERIPHERAL PULSES: Peripheral pulses 2+ throughout GI: COMMON NORMALS: Normal to inspection, nondistended, normoactive bowel sounds present PALPATION: Yes Tenderness to palpation present (GI) (He has some palpable tenderness in left lower quadrant without mass.) Details: LLQ : COMMON NORMALS: Yes no CVA tenderness BLADDER/KIDNEY EXAM: Yes no CVA tenderness Back/Pelvis: COMMON NORMALS: no CVA tenderness and thoracic and lumbar spine normal to inspection Extremity: COMMON NORMALS: normal to inspection, no joint enlargement, no calf tenderness and no pedal edema Neuro: SENSORIUM/ORIENTATION: Yes alert SPEECH: speech normal Course Reevaluation(s): Reevaluation #1: Patient has left sided abdominal tenderness of unclear etiology. I discussed pursuing that symptom with and she desires that we try to evaluate him to include advanced imaging if needed. Time: 13:04 Vital Signs: Vital signs: Vital Signs Pulse Rate 121 H 02/02/22 12:48 Respiratory Rate 26 H 02/02/22 12:48 Blood Pressure 103/71 02/02/22 12:48 Pulse Oximetry 99 02/02/22 12:48 [facility] - General Adult Medical Decision Making Unfortunate gentleman with metastatic lung cancer with chest wall erosion. He presents here with history of him having elevated temperature and decreased oral intake over the past 24 to 36 hours. His evaluation here shows bilateral effusions versus infiltrate with a leukocytosis (although his leukocytosis has been present previously). He was given IV fluids as well as a loading dose of antibiotics in the emergency department. I broached the topic of palliative care with his spouse and she acknowledges that topic but prefers he to be in the hospital at least overnight to see if we can improve his an acute infection. I think one of the things that needs to be addressed were carefully and tactfully with this spouse and family as they are expected course of this current medical illness. I discussed with the hospitalist who agreed to proceed with observation. Medical Records I reviewed the patient's medical records. Lab Data I reviewed the patient's lab results. : 02/02/22 14:21 02/02/22 14:21 Radiology Impressions Chest X-Ray 02/02/22 12:16 IMPRESSION: Stable left pleuroparenchymal disease. Abdomen/Pelvis CT 02/02/22 13:04 IMPRESSION: There is a large left chest and abdominal wall mass. This appears similar to that seen on 12/19/2021. There are small bilateral pleural effusions which have increased in size when compared with 12/19/2021. There is bilateral lower lobe lung consolidation consistent with atelectasis and/or pneumonia. Laboratory Results WBC 21.9 10^3/uL (4.0-10.0) H 02/02/22 14:21 RBC 2.75 10^6/uL (4.1-5.3) L 02/02/22 14:21 Hgb 7.5 g/dL (11.7-16.6) L 02/02/22 14:21 Hct 26.6 % (42.0-52.0) L 02/02/22 14: MCV 96.7 fl (80-94) H 02/02/22 14:21 MCH 27.3 pg (28.0-34.0) L 02/02/22 14:21 MCHC 28.2 g/dL (30.0-36.0) L 02/02/22 14:21 RDW 21.7 % (12.1-15.1) H 02/02/22 14:21 Plt Count 200 10^3/cmm (130-400) 02/02/22 14:21 MPV 9.9 fL (7.4-10.4) 02/02/22 14:21 Neut % (Auto) 87.7 % 02/02/22 14:21 Lymph % (Auto) 2.8 % 02/02/22 14:21 Barren % (Auto) 7.8 % 02/02/22 14:21 Eos % (Auto) 0.8 % 02/02/22 14:21 Baso % (Auto) 0.2 % 02/02/22 14:21 Neut # (Auto) 19.24 10^3/uL (1.8-7.7) H 02/02/22 14:21 Lymph # (Auto) 0.6 10^3/uL (0.8-4.8) L 02/02/22 14:21 Barren # (Auto) 1.7 10^3/uL (0.2-0.9) H 02/02/22 14:21 Eos # (Auto) 0.2 10^3/uL (0.0-0.8) 02/02/22 14:21 Baso # (Auto) 0.0 10^3/uL (0.0-0.1) 02/02/22 14: Nucleated RBC % (auto) 0 % 02/02/22 14:21 Nucleated RBCs # 0.0 /100WBC 02/02/22 14:21 Sodium 138 mmol/L (136-145) 02/02/22 14:21 Potassium 4.3 mmol/L (3.5-5.1) 02/02/22 14:21 Chloride 103 mmol/L (98-107) 02/02/22 14:21 Carbon Dioxide 27 mmol/L (22-29) 02/02/22 14:21 Anion Gap 12.3 (5-19) 02/02/22 14:21 BUN 15 mg/dL (8-23) 02/02/22 14:21 Creatinine 0.8 mg/dL (0.7-1.2) 02/02/22 14:21 GFR Calculation 96.1 mL/min (90-130) 02/02/22 14:21 Glucose 108 mg/dL (65-115) 02/02/22 14:21 Calculated Osmolality 287 mOsm/kg (285-295) 02/02/22 14:21 Calcium 12.1 mg/dL (8.5-10.5) H 02/02/22 14:21 Total Bilirubin 0.2 mg/dL (0.15-1.2) 02/02/22 14:21 AST 10 U/L (0-40) 02/02/22 14:21 ALT 7 U/L (0-41) 02/02/22 14:21 Alkaline Phosphatase 118 IU/L (40-130) 02/02/22 14:21 Total Protein 5.6 g/dL (6.6-8.7) L 02/02/22 14:21 Albumin 2.3 g/dL (3.5-5.2) L 02/02/22 14:21 Globulin 3.3 g/dL (1.3-4.6) 02/02/22 14:21 Discharge Plan Discharge Patient Disposition: Placed in Observation Clinical Impression: Lung cancer, Pneumonia, Pleural effusion, Volume depletion Condition: Stable Prescriptions: No Action escitalopram oxalate 10 mg tablet 10 mg PO QAM 0RF albuterol sulfate [Ventolin HFA] 90 mcg/actuation HFA aerosol inhaler 2 puff INHALATION Q6H PRN (Reason: Shortness Of Breath) 0RF acetaminophen [Tylenol Arthritis Pain] 650 mg tablet extended release 1,300 mg PO BID PRN (Reason: Pain) 0RF morphine 30 mg Tablet Extended Release 30 mg PO BID PRN (Reason: Pain) 0RF oxycodone 15 mg Tablet 15 mg PO Q4H PRN (Reason: Pain) 0RF fluticasone propion-salmeterol [Advair Diskus] 500-50 mcg/dose Blister With Device 1 ea INHALATION QAM 0RF polyethylene glycol 3350 [Miralax] 17 gram/dose Powder 17 g PO QAM PRN (Reason: Constipation) 0RF Rx Instructions: MIXES IN JUICE lidocaine HCl 2 % Jelly 1 applic topical PRN PRN (Reason: pain) Qty: 30 0RF pantoprazole 40 mg Tablet,Delayed Release (Dr/Ec) 40 mg PO BIDWM Qty: 84 0RF tamsulosin 0.4 mg capsule 0.8 mg PO BEDTIME 0RF ferrous sulfate 325 mg (65 mg iron) tablet 325 mg PO DAILY Qty: 90 0RF SSD 1 % cream 1 applic TOPICAL . DIRECTED 0RF Rx Instructions: with wound change on torso ipratropium-albuterol 0.5 mg-3 mg(2.5 mg base)/3 mL solution for nebulization 3 ml INHALATION BID PRN (Reason: Shortness Of Breath) 0RF morphine concentrate 100 mg/5 mL (20 mg/mL) solution 10 mg PO Q1H PRN (Reason: Pain) 0RF alprazolam 0.5 mg Tablet 0.5 mg PO TID PRN (Reason: Anxiety) 0RF metronidazole 0.75 % gel See Rx Instructions .ROUTE .COMPLEX 0RF Rx Instructions: 1 applic topically with wound change Referrals: Mikael Gibson DO [Primary Care Provider] - Coding Level of Care Code ED Credit Associate for Chg Fwd Exam Comprehensive
--- NOTE | 2022-02-02 13:04 | CTR_ITS ---
PROCEDURE INFORMATION: Exam: CT Abdomen And Pelvis Without Contrast Exam date and time: 02/02/2022 1:28 PM Age: 66 years old Clinical indication: Abdominal pain; Prior surgery; Surgery date: 1-6 months; Surgery type: Left sided upper abdomen- surgical dressing in place; Additional info: Lung CA with new left abd pain and tenderenss TECHNIQUE: Imaging protocol: Computed tomography of the abdomen and pelvis without contrast. Radiation optimization: All CT scans at this facility use at least one of these dose optimization techniques: automated exposure control; mA and/or kV adjustment per patient size (includes targeted exams where dose is matched to clinical indication); or iterative reconstruction. COMPARISON: CT angio chest w abd pel w con 12/19/2021 2:27 PM RADIATION DOSE METRICS: Total DLP (mGy-cm): 1240.5 FINDINGS: Pleural spaces: There are small bilateral pleural effusions. There is bilateral lower lobe lung consolidation. Liver: Findings consistent with fatty infiltration of the liver are identified. Gallbladder and bile ducts: Normal. No calcified stones. No ductal dilation. Pancreas: Normal. No ductal dilation. Spleen: Normal. No splenomegaly. Adrenal glands: Normal. No mass. Kidneys and ureters: There has been left nephrectomy. Stomach and bowel: There is fecal impaction in the rectosigmoid colon. There is stool throughout the colon. Appendix: The appendix is visualized and appears normal. Intraperitoneal space: Unremarkable. No free air. No significant fluid collection. Vasculature: Unremarkable. No abdominal aortic aneurysm. Lymph nodes: Unremarkable. No enlarged lymph nodes. Urinary bladder: Unremarkable as visualized. Reproductive: Unremarkable as visualized. Bones/joints: There is no evidence for acute fracture or malalignment. Soft tissues: There is a large mass in the soft tissues of the posterolateral left chest wall measuring approximately 14.4 x 12.8 x 10.8 cm in the transverse, craniocaudal and AP dimensions. This mass is in the left latissimus dorsi muscle and serratous anterior muscle. There is gas and fluid within this large soft tissue mass. There is destructive change of the left lateral 8th, 9th, 10th and 11th ribs. Other findings: This study is compromised by patient motion. CT/CT abdomen pelvis wo con [id number] IMPRESSION: There is a large left chest and abdominal wall mass. This appears similar to that seen on 12/19/2021. There are small bilateral pleural effusions which have increased in size when compared with 12/19/2021. There is bilateral lower lobe lung consolidation consistent with atelectasis and/or pneumonia.
[2022-02-02 14:33] LABS: Basophils % 0.2 %; Eosinophils # 0.2 10^3/uL (0.0-0.8); Eosinophils % 0.8 %; Hematocrit 26.6 % (42.0-52.0); Hemoglobin 7.5 g/dL (11.7-16.6); Lymphocytes # 0.6 10^3/uL (0.8-4.8); Lymphocytes % 2.8 %; Mean Corpuscular HGB Conc 28.2 g/dL (30.0-36.0); Mean Corpuscular Hemoglobin 27.3 pg (28.0-34.0); Mean Corpuscular Volume 96.7 fl (80-94); Mean Platelet Volume 9.9 fL (7.4-10.4); Monocytes # 1.7 10^3/uL (0.2-0.9); Monocytes % 7.8 %; Neutrophils # 19.24 10^3/uL (1.8-7.7); Neutrophils % 87.7 %; Nucleated Red Blood Cells % 0 %; Platelet Count 200 10^3/cmm (130-400); Red Blood Count 2.75 10^6/uL (4.1-5.3); Red Cell Distribution Width 21.7 % (12.1-15.1); White Blood Count 21.9 10^3/uL (4.0-10.0)
[2022-02-02 14:57] LABS: Alanine Aminotransferase 7 U/L (0-41); Albumin Level 2.3 g/dL (3.5-5.2); Alkaline Phosphatase 118 IU/L (40-130); Anion Gap 12.3 (5-19); Aspartate Amino Transferase 10 U/L (0-40); Blood Urea Nitrogen 15 mg/dL (8-23); Calcium 12.1 mg/dL (8.5-10.5); Carbon Dioxide 27 mmol/L (22-29); Chloride 103 mmol/L (98-107); Creatinine Clr Calc Pharmacy 95.5735; Globulin 3.3 g/dL (1.3-4.6); Glomerular Filtration Rate 96.1 mL/min (90-130); Glucose 108 mg/dL (65-115); Osmolality Calculated 287 mOsm/kg (285-295); Potassium 4.3 mmol/L (3.5-5.1); Sodium 138 mmol/L (136-145); Total Bilirubin 0.2 mg/dL (0.15-1.2); Total Protein 5.6 g/dL (6.6-8.7)
[2022-02-02] MEDS: lactated ringers 1,000 ML 999 ML IV (15:32)
[2022-02-02] MEDS: cefTRIAXone 2,000 MG in sodium chloride 0.9% (plus) 50 ML 100 MG IV (15:33)
--- NOTE | 2022-02-02 17:02 | ECG_ITS ---
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 Measurements Intervals [place] Rate: 95 P: 53 MI: 164 QRS: 34 QRSD: 140 T: 28 QT: 358 QTc: 452 Interpretive Statements SINUS RHYTHM WITH OCCASIONAL SUPRAVENTRICULAR PREMATURE COMPLEXES RIGHT BUNDLE BRANCH BLOCK [120+ ms QRS DURATION, UPRIGHT V1, 40+ ms S IN I/aVL/V4/V5/V6] Compared to ECG 12/19/2021 17:46:01 Indeterminate axis no longer present Electronically Signed On 02-03-2022 20:11:50 CDT by Deb Dorsey M.D. [id number]
--- NOTE | 2022-02-02 17:05 | PM.HP ---
Providers/Chief Complaint Admitting Physician: Jordan Tyler MD Primary Care Provider: Mikael Gibson DO Chief Complaint: LUNG CANCER/LABS History of Present Illness Nésotr Orozco is a 66 year old male with a past medical history of metastatic lung cancer, history of left-sided chest wall abdominal wall mass, history of pulmonary embolism on Eliquis due to GI bleed, history of GI bleed, intolerant to blood thinners, single kidney, protein calorie malnutrition, deconditioning, cancer cachexia, chronic pain, who presents [facility] due to decreased appetite, low-grade fevers, cough, fatigue, malaise. Currently patient's alert and oriented, he answers all questions, his family at bedside helps with the history taking. Patient has a history of metastatic lung cancer, currently on hospice, he tells me that he is always in pain, and for the last 2 weeks his pain has significantly increased, is on morphine, oxycodone, liquid morphine but continues to be in pain. He also tells me that his appetite has decreased, he did not have much of her breakfast this morning, has not had a bowel movement in some time, has fatigue, malaise, low-grade fevers, coughing. at bedside tells me that they want to do a trial of antibiotics and fluid to see if that would help with his symptomatology. According to the , they feel that giving him a trial of fluids and antibiotics is their wish so he could have a few more days with him. Currently patient alert oriented x3, looks ill, blood pressure 113/71, pulse 121, respiratory rate 26, O2 sats in the high 90s on 6 L. I advised family that currently I am concerned that he has an aspiration pneumonia, has evidence of sepsis, dehydration. Has a high risk of morbidity and mortality, has terminal lung cancer, is deconditioned, has protein, malnutrition, cachexia. I am worried that my interventions will be of minimal benefit, and he has a potential to have acute worsening. Acute worsening is concerning in my mind as it could result in us doing aggressive interventions. Patient wants to remain a full code I have confirmed this with patient's family at bedside. But patient does not want us to do any further testing, including a CT angiogram, as it could be a possibility of pulm emboli and postobstructive pneumonia. I advised that without do the best that I can, however there could be worsening despite my interventions. And there is a high risk of aggressive intervention and morbidity and mortality associated with his present illness, and is declining status. They voiced with onychomycosis of her, agreed to proceed for now. Review of Systems Const: Reports: fever(s), chills, fatigue and malaise ENMT: Reports: throat pain Card: Reports: lightheadedness; Denies: chest pain Resp: Reports: dyspnea and productive cough GI: Reports: abdominal pain and nausea : Denies: difficulty urinating Musc: Reports: back pain and extremity pain Skin/Breast: Reports: rash Neuro: Reports: headache(s) Medications/Allergies Home Medications Medication Instructions Recorded Confirmed Last Taken Type albuterol sulfate 90 mcg/actuation 2 puff INHALATION Q6H PRN 03/10/20 02/02/22 Unknown History aerosol inhaler (Ventolin HFA) escitalopram oxalate 10 mg tablet 10 mg PO QAM 03/10/20 02/02/22 02/01/22 History acetaminophen 650 mg 1,300 mg PO BID PRN 12/07/20 02/02/22 Unknown History tablet,extended release (Tylenol Arthritis Pain) fluticasone 500 mcg-salmeterol 50 1 ea INHALATION QAM 11/30/21 02/02/22 12/19/21 History mcg/dose blistr powdr for inhalation (Advair Diskus) morphine 30 mg tablet,extended 30 mg PO BID PRN 11/30/21 02/02/22 Unknown History release oxycodone 15 mg tablet 15 mg PO Q4H PRN 11/30/21 02/02/22 Unknown History polyethylene glycol 3350 17 17 g PO QAM PRN 11/30/21 02/02/22 12/19/21 History gram/dose oral powder (Miralax) lidocaine HCl 2 % mucosal jelly 1 applic TOPICAL PRN PRN #30 ml 12/02/21 02/02/22 12/18/21 Rx pantoprazole 40 mg tablet,delayed 40 mg PO BIDWM #84 tab 12/02/21 02/02/22 02/01/22 Rx release tamsulosin 0.4 mg capsule 0.8 mg PO BEDTIME 12/19/21 02/02/22 02/01/22 History ferrous sulfate 325 mg (65 mg 325 mg PO DAILY #90 tab 12/22/21 02/02/22 02/01/22 Rx iron) tablet alprazolam 0.5 mg tablet 0.5 mg PO TID PRN 02/02/22 02/02/22 Unknown History ipratropium 0.5 mg-albuterol 3 mg 3 ml INHALATION BID PRN 02/02/22 02/02/22 Unknown History (2.5 mg base)/3 mL nebulization soln metronidazole 0.75 % topical gel See Rx Instructions .ROUTE .COMPLEX 02/02/22 02/02/22 Unknown History morphine concentrate 100 mg/5 mL 10 mg PO Q1H PRN 02/02/22 02/02/22 Unknown History (20 mg/mL) oral solution silver sulfadiazine 1 % topical 1 applic TOPICAL . DIRECTED 02/02/22 02/02/22 Unknown History cream (SSD) Allergies Allergy/AdvReac Type Severity Reaction Status Date / Time No Known Allergies Allergy Verified 11/30/21 12:04 PFSH Acute PFSH: Medical History Anemia BPH loc w urin obs/LUTS Chronic prostatitis Chronic respiratory failure with hypoxia Diastolic CHF with preserved left ventricular function, NYHA class 2 Elevated PSA Mass of left chest wall Metastatic lung cancer (metastasis from lung to other site) Pneumonia Pulmonary nodule Renal cancer Left Single kidney Surgical History H/O hernia repair bilateral ingunial hernia repairs H/O prostate biopsy History of lobectomy of lung Port-A-Cath in place Previous back surgery x 2 S/p nephrectomy left Family History Father , AT AGE 58 Automobile accident Mother , AT AGE 89 CHF (congestive heart failure) Social History Smoking and tobacco status: former smoker Alcohol intake: never Marital status: Current occupational status: retired 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, 2 handrails in front though wide steps History of recent travel: No Vitals/I&O/Wt Last Vital Signs Pulse 121 H 02/02/22 12:48 Resp 26 H 02/02/22 12:48 BP 103/71 02/02/22 12:48 Pulse Ox 99 02/02/22 12:48 Weight last 48 hrs Weight 81.647 kg Physical Exam Const: COMMON NORMALS: no acute distress and patient oriented x3 GENERAL APPEARANCE: ill appearing and frail appearing NUTRITIONAL APPEARANCE: cachectic HENMT: COMMON NORMALS: normocephalic HEAD & SCALP: normocephalic Eye: COMMON NORMALS: Equal, round and reactive pupils present and EOMs intact bilaterally OTHER: Oral cavity, multiple white patches Neck/C-Spine: COMMON NORMALS: full ROM and no lymphadenopathy Chest: OTHER: Bilateral lung benitez, decreased aeration, crackles and wheezing present on examination, slight intercostal retractions, nasal flaring on 6 L Cardio: OTHER: S1-S2, tachycardic, regular rhythm, no murmur GI: COMMON NORMALS: Normal to inspection, nondistended, normoactive bowel sounds present, Soft to palpation, non-tender and No hepatosplenomegaly present Extremity: COMMON NORMALS: no pedal edema Neuro: COMMON NORMALS: patient oriented x3 Psych: COMMON NORMALS: mental status grossly normal Skin: NARRATIVE SKIN EXAM: Left chest, left abdominal wall, skin lesion, dressed Data : 02/02/22 14:21 02/02/22 14:21 A&P Assessment and plan (1) Lung cancer: Status: Acute (2) Pneumonia: Status: Acute (3) Pleural effusion: Status: Acute (4) Volume depletion: Status: Acute (5) GI bleed: Status: Acute (6) Anemia: Status: Acute (7) Cancer cachexia: Status: Acute (8) Protein calorie malnutrition: Status: Acute Plan Acute on chronic respiratory failure -Likely recurrent aspiration pneumonia -However cannot rule out underlying pulmonary emboli or postobstructive pneumonia, or abscess however patient does not want to have any further interventions or evaluation -Does have bilateral pleural effusions Plan -Aspiration precautions -Dysphagia diet -Vancomycin and Zosyn gram-negative coverage -Sputum cultures, blood cultures -SCDs for DVT prophylaxis, intolerant to Lovenox due to GI bleed -Full code, as per patient, family at bedside, confirmed Hypercalcemia, corrected calcium 13.5, likely secondary to lung malignancy, IV fluids, telemetry monitoring we will check an ionized calcium Dehydration, IV fluids Sepsis secondary to aspiration pneumonia, IV fluids, midodrine History of anemia, hemoglobin 7.5, secondary to GI bleed, will transfuse if less than 7 History of pulmonary embolism, off anticoagulation Deconditioning, protein calorie malnutrition, cancer cachexia secondary to underlying metastatic lung cancer Left-sided chest wall mass, abdominal wall mass, wound care Attestations Medical Necessity Statement*: Patient requires hospitalization, outpatient with observation, for aspiration pneumonia, sepsis, dehydration, anemia, Coding Level of Care Code Acute Sign Maintenance for [facility] 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
[2022-02-02 17:40] VITALS: BP 105/66; PULSE 95; RESP 17; O2SAT 98
[2022-02-02 18:23] LABS: D Dimer 2.16 ug/mIFEU (0-0.59)
[2022-02-02 18:30] LABS: Troponin(5th) Baseline 50 ng/L (0-15)
[2022-02-02 18:31] LABS: Lactic Sepsis W/Reflex 1.2 mmol/L (0.5-2.2)
[2022-02-02 18:40] LABS: NT Pro B Type Natriuretic Pept 311 pg/mL (0-125); Procalcitonin 0.35 ng/mL (0-0.5)
[2022-02-02 19:01] VITALS: BP 105/66; PULSE 95; RESP 17; O2SAT 98
[2022-02-02 19:36] VITALS: BMI 22.4
[2022-02-02 20:00] VITALS: BP 100/65; PULSE 100; RESP 18; TEMP 36.6; O2SAT 100
[2022-02-02 20:11] LABS: Ionized Calcium 1.6 mmol/L (1.1-1.4)
[2022-02-02] MEDS: nystatin 100,000 unit/mL UDC 5 mL 100000 UNIT PO (20:32)
[2022-02-02] MEDS: dextrose 5%-sod chloride 0.9% 1,000 ML 125 ML IV (20:32)
[2022-02-02] MEDS: midodrine 5 mg TABLET 10 MG PO (20:33)
[2022-02-02] MEDS: piperacillin-tazobactam 3.375 GM in sodium chloride 0.9% (plus) 50 ML IV (20:34)
[2022-02-02] MEDS: pantoprazole DR 40 mg Tablet PO (20:34)
[2022-02-02] MEDS: tamsulosin 0.4 mg Capsule 0.8 MG PO (20:34)
[2022-02-02 20:46] LABS: Troponin 5 2HR 49.85 ng/L (0-15)
[2022-02-02 20:53] LABS: Thyroid Stimulating Hormone 0.67 uIU/mL (0.27-4.20)
[2022-02-02 21:01] LABS: Troponin 5 2HR Delta -0.15 ABS# (0-10)
[2022-02-02] MEDS: vancomycin 1,250 MG/250 ML PIGGYBACK 250 MG IV (21:21)
[2022-02-02] MEDS: ALPRAZolam 0.5 mg Tablet PO (21:56)
[2022-02-02 22:05] VITALS: O2SAT 99
--- NOTE | 2022-02-02 22:59 | ECG_ITS ---
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 Measurements Intervals [place] Rate: 106 P: 69 SC: 170 QRS: 33 QRSD: 139 T: 34 QT: 337 QTc: 449 Interpretive Statements SINUS TACHYCARDIA RIGHT BUNDLE BRANCH BLOCK [120+ ms QRS DURATION, UPRIGHT V1, 40+ ms S IN I/aVL/V4/V5/V6] Compared to ECG 02/02/2022 17:44:40 Sinus rhythm no longer present Electronically Signed On 02-03-2022 20:22:53 CDT by Deb Dorsey M.D. [id number]
[2022-02-02 23:33] VITALS: RESP 20; O2SAT 93
[2022-02-02] MEDS: oxyCODONE 5 mg IR Tab/Cap 15 MG PO (23:33)
[2022-02-03] VITALS (19 sets, daily range): BP systolic 105–131; BP diastolic 65–73; PULSE 91–103; RESP 15–22; TEMP 36.8–37.4; O2SAT 93–100
[2022-02-03 00:48] LABS: Basophils % 0.2 %; Eosinophils # 0.2 10^3/uL (0.0-0.8); Hematocrit 25.4 % (42.0-52.0); Hemoglobin 7.3 g/dL (11.7-16.6); Lymphocytes # 0.6 10^3/uL (0.8-4.8); Lymphocytes % 2.9 %; Mean Corpuscular HGB Conc 28.7 g/dL (30.0-36.0); Mean Corpuscular Hemoglobin 27.1 pg (28.0-34.0); Mean Corpuscular Volume 94.4 fl (80-94); Mean Platelet Volume 10.1 fL (7.4-10.4); Monocytes # 1.7 10^3/uL (0.2-0.9); Monocytes % 8.5 %; Neutrophils # 17.68 10^3/uL (1.8-7.7); Neutrophils % 86.8 %; Nucleated Red Blood Cells % 0 %; Platelet Count 201 10^3/cmm (130-400); Red Blood Count 2.69 10^6/uL (4.1-5.3); Red Cell Distribution Width 21.5 % (12.1-15.1); White Blood Count 20.4 10^3/uL (4.0-10.0)
[2022-02-03 01:07] LABS: Alanine Aminotransferase 6 U/L (0-41); Albumin Level 2.3 g/dL (3.5-5.2); Alkaline Phosphatase 109 IU/L (40-130); Aspartate Amino Transferase 12 U/L (0-40); Blood Urea Nitrogen 13 mg/dL (8-23); Calcium 11.8 mg/dL (8.5-10.5); Carbon Dioxide 26 mmol/L (22-29); Chloride 103 mmol/L (98-107); Globulin 3.1 g/dL (1.3-4.6); Glomerular Filtration Rate 112.1 mL/min (90-130); Glucose 117 mg/dL (65-115); Osmolality Calculated 285 mOsm/kg (285-295); Phosphorus 1.7 mg/dL (2.5-4.5); Sodium 137 mmol/L (136-145); Total Bilirubin 0.2 mg/dL (0.15-1.2); Total Protein 5.4 g/dL (6.6-8.7)
[2022-02-03 01:08] LABS: Anion Gap 12.2 (5-19); Potassium 4.2 mmol/L (3.5-5.1); Troponin 5 6HR 43.68 ng/L (0-15); Troponin 5 6HR Delta -6.32 ng/L (0-12)
[2022-02-03] MEDS: piperacillin-tazobactam 3.375 GM in sodium chloride 0.9% (plus) 50 ML IV ×3 (04:21→20:38)
[2022-02-03] MEDS: escitalopram 10 mg Tablet PO (04:25)
[2022-02-03] MEDS: vancomycin 1,250 MG/250 ML PIGGYBACK 250 MG IV ×2 (08:14→19:35)
[2022-02-03] MEDS: dextrose 5%-sod chloride 0.9% 1,000 ML 125 ML IV ×2 (08:14→17:34)
[2022-02-03] MEDS: pantoprazole DR 40 mg Tablet PO ×2 (08:16→17:35)
[2022-02-03] MEDS: nystatin 100,000 unit/mL UDC 5 mL 100000 UNIT PO ×4 (08:18→20:40)
[2022-02-03] MEDS: ferrous sulfate EC 325 mg Tablet PO (08:18)
[2022-02-03] MEDS: ipratropium-albuterol 3 mL Neb INHALATION ×4 (08:22→20:59)
--- NOTE | 2022-02-03 09:22 | PM.PN ---
Subjective Subjective: Patient was seen this morning, family at bedside, he is a little bit drowsy this morning, denies any pain overnight, only had oxycodone for pain, down to 5 L, continues to have a cough, had a better appetite this morning, his brought him food from the cafeteria, no choking episodes, no coughing episodes, no fevers, no chills, no nausea, no vomiting, he has not had a bowel movement as of yet Vitals/I&O/Wt Last Vital Signs Temp 99.4 F 02/03/22 07:33 Pulse 100 02/03/22 08:31 Resp 20 H 02/03/22 08:23 BP 120/69 02/03/22 07:33 Pulse Ox 95 02/03/22 08:31 02/02/22 02/03/22 02/03/22 22:59 06:59 14:59 Intake Total 200 / 200 1440 / 1640 1300 / 1300 Output Total 600 / 600 0 / 600 Balance -400 / -400 1440 / 1040 1300 / 1300 Weight last 48 hrs Weight 71.35 kg Weight 71.078 kg Weight 81.647 kg Physical Exam Const: COMMON NORMALS: no acute distress GENERAL APPEARANCE: cooperative, ill appearing and frail appearing Resp: COMMON NORMALS: normal respiratory effort, No retractions and No use of accessory muscles AUSCULTATION: crackles and wheezes Cardio: COMMON NORMALS: regular rate, regular rhythm, S1 normal heart sound present and S2 normal heart sound present RATE: regular rate RHYTHM: regular rhythm HEART SOUNDS: S1 normal heart sound present and S2 normal heart sound present GI: COMMON NORMALS: Normal to inspection, nondistended, normoactive bowel sounds present, Soft to palpation and non-tender PALPATION: Yes Soft to palpation Extremity: COMMON NORMALS: no pedal edema Psych: COMMON NORMALS: mental status grossly normal Data : 02/03/22 00:43 02/03/22 00:43 Micro: Microbiology 02/02/22 17:00 Blood Culture - Preliminary Blood SPECIMEN COLLECTED 02/02/22 17:55 Blood Culture - Preliminary Blood SPECIMEN COLLECTED A&P Assessment and plan (1) Lung cancer: Status: Acute (2) Pneumonia: Status: Acute (3) Pleural effusion: Status: Acute (4) Volume depletion: Status: Acute (5) GI bleed: Status: Acute (6) Anemia: Status: Acute (7) Cancer cachexia: Status: Acute (8) Protein calorie malnutrition: Status: Acute Plan Acute on chronic respiratory failure -Likely recurrent aspiration pneumonia -However cannot rule out underlying pulmonary emboli or postobstructive pneumonia, or abscess however patient does not want to have any further interventions or evaluation -Does have bilateral pleural effusions Plan -Aspiration precautions -Dysphagia diet, speech therapy eval -Vancomycin and Zosyn gram-negative coverage -Sputum cultures, blood cultures -SCDs for DVT prophylaxis, intolerant to Lovenox due to GI bleed -Full code, as per patient, family at bedside, confirmed Hypercalcemia, corrected calcium 11.8, likely secondary to lung malignancy, IV fluids, telemetry monitoring we will check an ionized calcium Hypomagnesemia, hypokalemia, hypophosphatemia will replace Dehydration, IV fluids Sepsis secondary to aspiration pneumonia, IV fluids, midodrine History of anemia, hemoglobin 7.3, secondary to GI bleed, will transfuse if less than 7 History of pulmonary embolism, off anticoagulation Deconditioning, protein calorie malnutrition, 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
[2022-02-03] MEDS: morphine 10 mg/0.5 mL oral liq UD PO ×5 (10:53→20:28)
[2022-02-03] MEDS: oxyCODONE 5 mg IR Tab/Cap 15 MG PO ×3 (12:26→23:10)
--- NOTE | 2022-02-03 14:48 | PC.SLP ---
Patient not seen due to change to Inpatient Hospice. Will continue to monitor.
[2022-02-03] MEDS: ALPRAZolam 0.5 mg Tablet PO (20:27)
[2022-02-03] MEDS: tamsulosin 0.4 mg Capsule 0.8 MG PO (20:40)
[2022-02-04] VITALS (28 sets, daily range): BP systolic 100–127; BP diastolic 64–76; PULSE 78–100; RESP 16–22; TEMP 36.6–37.3; O2SAT 90–99
[2022-02-04] MEDS: ipratropium-albuterol 3 mL Neb INHALATION ×7 (00:29→22:52)
[2022-02-04] MEDS: dextrose 5%-sod chloride 0.9% 1,000 ML 125 ML IV ×2 (03:03→18:37)
[2022-02-04 03:08] LABS: Basophils % 0.2 %; Eosinophils # 0.3 10^3/uL (0.0-0.8); Eosinophils % 1.7 %; Hematocrit 22.1 % (42.0-52.0); Lymphocytes # 0.8 10^3/uL (0.8-4.8); Lymphocytes % 4.5 %; Mean Corpuscular Hemoglobin 27.6 pg (28.0-34.0); Mean Corpuscular Volume 95.3 fl (80-94); Monocytes # 1.7 10^3/uL (0.2-0.9); Monocytes % 9.3 %; Neutrophils # 15.19 10^3/uL (1.8-7.7); Neutrophils % 83.7 %; Nucleated Red Blood Cells % 0 %; Platelet Count 213 10^3/cmm (130-400); Red Blood Count 2.32 10^6/uL (4.1-5.3); Red Cell Distribution Width 21.7 % (12.1-15.1); White Blood Count 18.1 10^3/uL (4.0-10.0)
[2022-02-04 03:30] LABS: Alanine Aminotransferase 10 U/L (0-41); Albumin Level 2.1 g/dL (3.5-5.2); Alkaline Phosphatase 95 IU/L (40-130); Anion Gap 11.6 (5-19); Aspartate Amino Transferase 17 U/L (0-40); Blood Urea Nitrogen 8 mg/dL (8-23); Calcium 10.4 mg/dL (8.5-10.5); Carbon Dioxide 22 mmol/L (22-29); Chloride 106 mmol/L (98-107); Globulin 2.9 g/dL (1.3-4.6); Glucose 123 mg/dL (65-115); Magnesium 1.9 mg/dL (1.7-2.3); Osmolality Calculated 282 mOsm/kg (285-295); Phosphorus 1.6 mg/dL (2.5-4.5); Potassium 3.6 mmol/L (3.5-5.1); Sodium 136 mmol/L (136-145); Total Bilirubin 0.2 mg/dL (0.15-1.2)
[2022-02-04 03:44] LABS: Hemoglobin 6.4 g/dL (11.7-16.6)
[2022-02-04] MEDS: piperacillin-tazobactam 3.375 GM in sodium chloride 0.9% (plus) 50 ML IV ×2 (05:19→20:25)
[2022-02-04] MEDS: morphine 10 mg/0.5 mL oral liq UD PO ×3 (05:19→21:54)
[2022-02-04] MEDS: escitalopram 10 mg Tablet PO (05:19)
[2022-02-04] MEDS: oxyCODONE 5 mg IR Tab/Cap 15 MG PO ×3 (06:23→23:21)
[2022-02-04 07:35] LABS: Vancomycin Trough 17.6 ug/mL (10-15)
--- NOTE | 2022-02-04 07:52 | PC.NURSE ---
Notified Dr. Tyler of vanc trough level of 17.6 and HGB level of 6.4 via Voalte.
--- NOTE | 2022-02-04 08:39 | PC.NURSE ---
Dr. Tyler confirmed that he wanted to give the patient 1 unit of blood based on the HGB of 6.4 and to hold the vancomycin based on the vanc trough of 17.6.
--- NOTE | 2022-02-04 10:15 | P.PN_ITS ---
Subjective Subjective: Patient was seen this morning, is at bedside, she tells me that he had a bit of a restless night, has received oxycodone, has been sleeping since then, afebrile overnight, had a poor appetite, she tells me that normally does take Ritalin 3 times a day for his appetite, she is not sure of the dose, but she thinks is the lowest dose, patient is alert, but falls asleep, he just received an oxycodone Vitals/I&O/Wt Last Vital Signs Temp 98.1 F 02/04/22 04:00 Pulse 88 02/04/22 08:45 Resp 17 02/04/22 08:30 BP 113/68 02/04/22 07:18 Pulse Ox 97 02/04/22 08:30 02/03/22 02/04/22 02/04/22 22:59 06:59 14:59 Intake Total 1610 / 3160 1150 / 4310 Output Total 225 / 225 Balance 1610 / 3160 1150 / 4310 -225 / -225 Weight last 48 hrs Weight 72.983 kg Weight 71.35 kg Weight 71.078 kg Weight 81.647 kg Physical Exam Const: COMMON NORMALS: no acute distress Neck/C-Spine: COMMON NORMALS: no JVD Resp: COMMON NORMALS: normal respiratory effort, No retractions, No use of accessory muscles and clear to auscultation bilaterally AUSCULTATION: clear to auscultation bilaterally Cardio: COMMON NORMALS: no JVD, regular rate, regular rhythm, S1 normal heart sound present and S2 normal heart sound present RATE: regular rate RHYTHM: regular rhythm HEART SOUNDS: S1 normal heart sound present and S2 normal heart sound present GI: COMMON NORMALS: Normal to inspection, nondistended, normoactive bowel sounds present, Soft to palpation and non-tender PALPATION: Yes Soft to palpation Extremity: COMMON NORMALS: no pedal edema Psych: OTHER: Patient is drowsy Data : 02/04/22 02:35 02/04/22 02:35 Micro: Microbiology 02/02/22 17:00 Blood Culture - Preliminary Blood NEGATIVE TO DATE 02/02/22 17:55 Blood Culture - Preliminary Blood NEGATIVE TO DATE A&P Assessment and plan (1) Lung cancer: Status: Acute (2) Pneumonia: Status: Acute (3) Pleural effusion: Status: Acute (4) Volume depletion: Status: Acute (5) GI bleed: Status: Acute (6) Anemia: Status: Acute (7) Cancer cachexia: Status: Acute (8) Protein calorie malnutrition: Status: Acute Plan Acute on chronic respiratory failure -Likely recurrent aspiration pneumonia -However cannot rule out underlying pulmonary emboli or postobstructive pneumonia, or abscess however patient does not want to have any further interventions or evaluation -Does have bilateral pleural effusions Plan -Aspiration precautions -Dysphagia diet, speech therapy eval -Stop vancomycin and continue Zosyn gram-negative coverage -Sputum cultures, blood cultures -SCDs for DVT prophylaxis, intolerant to Lovenox due to GI bleed -Full code, as per patient, family at bedside, confirmed Hypercalcemia, corrected calcium 10.4, likely secondary to lung malignancy, IV fluids, telemetry monitoring we will check an ionized calcium Hypomagnesemia, hypokalemia, hypophosphatemia will replace Dehydration, IV fluids Sepsis secondary to aspiration pneumonia, IV fluids, History of anemia, hemoglobin 6.4, secondary to GI bleed, will transfuse 1 unit PRBCs History of pulmonary embolism, off anticoagulation Deconditioning, protein calorie malnutrition, 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
[2022-02-04] MEDS: sodium chloride 0.9% (100 ml) 100 ML (13:45)
[2022-02-04] MEDS: pantoprazole DR 40 mg Tablet PO (17:36)
[2022-02-04] MEDS: nystatin 100,000 unit/mL UDC 5 mL 100000 UNIT PO ×2 (17:38→20:25)
[2022-02-04] MEDS: tamsulosin 0.4 mg Capsule 0.8 MG PO (20:25)
[2022-02-05] VITALS (16 sets, daily range): BP systolic 105–114; BP diastolic 65–78; PULSE 78–97; RESP 16–20; TEMP 36.8–37.1; O2SAT 92–99
[2022-02-05] MEDS: morphine 10 mg/0.5 mL oral liq UD PO ×5 (01:52→21:55)
[2022-02-05] MEDS: dextrose 5%-sod chloride 0.9% 1,000 ML 125 ML IV ×3 (02:42→18:36)
[2022-02-05] MEDS: ipratropium-albuterol 3 mL Neb INHALATION ×5 (03:19→19:57)
[2022-02-05 03:58] LABS: Basophils % 0.2 %; Eosinophils # 0.4 10^3/uL (0.0-0.8); Eosinophils % 2.2 %; Hematocrit 28.3 % (42.0-52.0); Lymphocytes % 5.1 %; Mean Corpuscular HGB Conc 28.3 g/dL (30.0-36.0); Mean Corpuscular Hemoglobin 27.7 pg (28.0-34.0); Mean Corpuscular Volume 97.9 fl (80-94); Mean Platelet Volume 9.7 fL (7.4-10.4); Monocytes # 2.2 10^3/uL (0.2-0.9); Neutrophils # 15.77 10^3/uL (1.8-7.7); Neutrophils % 80.6 %; Nucleated Red Blood Cells % 0 %; Platelet Count 210 10^3/cmm (130-400); Red Blood Count 2.89 10^6/uL (4.1-5.3); Red Cell Distribution Width 21.1 % (12.1-15.1); White Blood Count 19.5 10^3/uL (4.0-10.0)
[2022-02-05 04:20] LABS: Alanine Aminotransferase 33 U/L (0-41); Alkaline Phosphatase 123 IU/L (40-130); Aspartate Amino Transferase 55 U/L (0-40); Blood Urea Nitrogen 6 mg/dL (8-23); Calcium 10.6 mg/dL (8.5-10.5); Carbon Dioxide 19 mmol/L (22-29); Chloride 107 mmol/L (98-107); Globulin 3.3 g/dL (1.3-4.6); Glucose 111 mg/dL (65-115); Osmolality Calculated 282 mOsm/kg (285-295); Phosphorus 1.8 mg/dL (2.5-4.5); Sodium 137 mmol/L (136-145); Total Bilirubin 0.4 mg/dL (0.15-1.2); Total Protein 5.3 g/dL (6.6-8.7)
[2022-02-05] MEDS: escitalopram 10 mg Tablet PO (05:08)
[2022-02-05] MEDS: piperacillin-tazobactam 3.375 GM in sodium chloride 0.9% (plus) 50 ML IV (05:09)
[2022-02-05] MEDS: oxyCODONE 5 mg IR Tab/Cap 15 MG PO ×2 (05:30→20:30)
[2022-02-05] MEDS: ferrous sulfate EC 325 mg Tablet PO (08:09)
[2022-02-05] MEDS: pantoprazole DR 40 mg Tablet PO ×2 (08:09→17:07)
--- NOTE | 2022-02-05 13:09 | PM.PN ---
Subjective Subjective: Patient was seen this morning, is at bedside, she tells me that his appetite remains poor, however slowly improving, continues to be quite drowsy, weak, she is hoping the Ritalin will help, he also received a unit of blood cells yesterday, she tells me that his pain is well controlled, patient is currently sleeping, has received oxycodone, is drowsy, does arouse, but falls back asleep, she tells me that he had a difficult night, did not sleep well, family brought him some homemade ice cream which he had at 2 AM Vitals/I&O/Wt Last Vital Signs Temp 98.4 F 02/05/22 11:30 Pulse 81 02/05/22 11:30 Resp 18 02/05/22 11:30 BP 114/71 02/05/22 11:30 Pulse Ox 96 02/05/22 11:30 02/04/22 02/05/22 02/05/22 22:59 06:59 14:59 Intake Total 640 / 1880 1050 / 2930 240 / 240 Output Total 1100 / 1325 500 / 1825 Balance -460 / 555 550 / 1105 240 / 240 Weight last 48 hrs Weight 72.983 kg Physical Exam Const: COMMON NORMALS: no acute distress Resp: COMMON NORMALS: normal respiratory effort, No retractions, No use of accessory muscles and clear to auscultation bilaterally AUSCULTATION: clear to auscultation bilaterally Cardio: COMMON NORMALS: regular rate, regular rhythm, S1 normal heart sound present and S2 normal heart sound present RATE: regular rate RHYTHM: regular rhythm HEART SOUNDS: S1 normal heart sound present and S2 normal heart sound present GI: COMMON NORMALS: Normal to inspection, nondistended, normoactive bowel sounds present, Soft to palpation and non-tender PALPATION: Yes Soft to palpation Extremity: COMMON NORMALS: no pedal edema Data : 02/05/22 03:40 02/05/22 03:40 A&P Assessment and plan (1) Lung cancer: Status: Acute (2) Pneumonia: Status: Acute (3) Pleural effusion: Status: Acute (4) Volume depletion: Status: Acute (5) GI bleed: Status: Acute (6) Anemia: Status: Acute (7) Cancer cachexia: Status: Acute (8) Protein calorie malnutrition: Status: Acute Plan Acute on chronic respiratory failure -Likely recurrent aspiration pneumonia -However cannot rule out underlying pulmonary emboli or postobstructive pneumonia, or abscess however patient does not want to have any further interventions or evaluation -Does have bilateral pleural effusions Plan -Aspiration precautions -Dysphagia diet, speech therapy eval - continue Zosyn gram-negative coverage -Sputum cultures, blood cultures -SCDs for DVT prophylaxis, intolerant to Lovenox due to GI bleed -Full code, as per patient, family at bedside, confirmed Hypercalcemia, corrected calcium 10.6, likely secondary to lung malignancy, IV fluids, telemetry monitoring we will check an ionized calcium Hypomagnesemia, hypokalemia, hypophosphatemia will replace Dehydration, IV fluids Sepsis secondary to aspiration pneumonia, IV fluids, History of anemia, hemoglobin 8.0, likely secondary to GI bleed, status post 1 unit PRBC History of pulmonary embolism, off anticoagulation Deconditioning, protein calorie malnutrition, 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
[2022-02-05] MEDS: piperacillin-tazobactam 3.375 GM in sodium chloride 0.9% (plus) 100 ML IV ×2 (13:24→20:28)
[2022-02-05] MEDS: acetaminophen 325 mg Tablet 650 MG PO ×2 (15:29→22:27)
[2022-02-05] MEDS: nystatin 100,000 unit/mL UDC 5 mL 100000 UNIT PO ×3 (15:30→20:28)
[2022-02-05] MEDS: methylphenidate 10 mg Tablet PO (18:08)
[2022-02-05] MEDS: tamsulosin 0.4 mg Capsule 0.8 MG PO (20:28)
--- NOTE | 2022-02-05 20:47 | PC.NURSE ---
Dressing to left lateral chest changed. Patient tolerated activity well. Foul smell with moderate discharge noted.
[2022-02-05] MEDS: ALPRAZolam 0.5 mg Tablet PO (23:52)
[2022-02-06] VITALS (11 sets, daily range): BP systolic 97–103; BP diastolic 64–70; PULSE 86–98; RESP 16–18; TEMP 36.6–37.1; O2SAT 94–100
[2022-02-06] MEDS: ipratropium-albuterol 3 mL Neb INHALATION ×3 (00:03→07:34)
[2022-02-06] MEDS: dextrose 5%-sod chloride 0.9% 1,000 ML 125 ML IV (02:30)
[2022-02-06] MEDS: morphine 10 mg/0.5 mL oral liq UD PO ×2 (03:56→09:37)
--- NOTE | 2022-02-06 04:16 | NUR.SHIFT ---
Uneventful shift for patient. Pain controlled with prn medications. Roxy care provided with incontinent episodes, linens and briefs changed. Right upper chest port intact and infusing d5w ns at 125ml/hr per orders. Patient took medications crushed with applesauce with no dysphagia noted. at bedside throughout shift.
[2022-02-06 04:25] LABS: Basophils % 0.2 %; Eosinophils # 0.5 10^3/uL (0.0-0.8); Eosinophils % 2.6 %; Hematocrit 28.8 % (42.0-52.0); Hemoglobin 8.2 g/dL (11.7-16.6); Lymphocytes # 0.9 10^3/uL (0.8-4.8); Lymphocytes % 4.5 %; Mean Corpuscular HGB Conc 28.5 g/dL (30.0-36.0); Mean Corpuscular Hemoglobin 27.3 pg (28.0-34.0); Mean Platelet Volume 9.7 fL (7.4-10.4); Monocytes # 1.7 10^3/uL (0.2-0.9); Monocytes % 9.1 %; Neutrophils # 15.76 10^3/uL (1.8-7.7); Nucleated Red Blood Cells % 0 %; Platelet Count 197 10^3/cmm (130-400); Red Cell Distribution Width 20.7 % (12.1-15.1)
[2022-02-06 04:46] LABS: Alanine Aminotransferase 37 U/L (0-41); Alkaline Phosphatase 129 IU/L (40-130); Anion Gap 12.5 (5-19); Aspartate Amino Transferase 39 U/L (0-40); Blood Urea Nitrogen 5 mg/dL (8-23); Calcium 10.8 mg/dL (8.5-10.5); Carbon Dioxide 21 mmol/L (22-29); Chloride 105 mmol/L (98-107); Globulin 3.4 g/dL (1.3-4.6); Glomerular Filtration Rate 165.4 mL/min (90-130); Glucose 115 mg/dL (65-115); Magnesium 1.9 mg/dL (1.7-2.3); Osmolality Calculated 278 mOsm/kg (285-295); Phosphorus 2.2 mg/dL (2.5-4.5); Potassium 3.5 mmol/L (3.5-5.1); Sodium 135 mmol/L (136-145); Total Bilirubin 0.2 mg/dL (0.15-1.2); Total Protein 5.4 g/dL (6.6-8.7)
[2022-02-06] MEDS: escitalopram 10 mg Tablet PO (05:06)
[2022-02-06] MEDS: piperacillin-tazobactam 3.375 GM in sodium chloride 0.9% (plus) 100 ML IV (05:06)
[2022-02-06] MEDS: oxyCODONE 5 mg IR Tab/Cap 15 MG PO ×2 (05:56→11:27)
[2022-02-06] MEDS: methylphenidate 10 mg Tablet PO (06:01)
--- NOTE | 2022-02-06 09:18 | PC.SOCIAL ---
IMM Update pg 2 of IMM updated and reviewed w/ patient and his daughter who is @ BS. Copy provided and Copy placed in chart.
[2022-02-06] MEDS: pantoprazole DR 40 mg Tablet PO (09:36)
[2022-02-06] MEDS: ALPRAZolam 0.5 mg Tablet PO (09:36)
[2022-02-06] MEDS: ferrous sulfate EC 325 mg Tablet PO (09:36)
[2022-02-06] MEDS: nystatin 100,000 unit/mL UDC 5 mL 100000 UNIT PO (09:36)
--- NOTE | 2022-02-06 10:46 | PM.DCS ---
Discharge Providers Date of Admission: 02/03/22 09:22 Date of Discharge: February 06, 2022 Attending Provider at Admission: Jordan Tyler MD Attending Provider at Discharge: Zak Cruz Primary Care Provider: Mikael Gibson DO Diagnoses at Discharge Discharge Diagnosis (1) Lung cancer: Status: Acute (2) Pneumonia: Status: Acute (3) Pleural effusion: Status: Acute (4) Volume depletion: Status: Acute (5) GI bleed: Status: Acute (6) Anemia: Status: Acute (7) Cancer cachexia: Status: Acute (8) Protein calorie malnutrition: Status: Acute Reason for Visit Reason for Visit: LUNG CANCER/LABS Hospital Course Hospital Course Pleasant 66-year-old gentleman with metastatic lung cancer, on hospice care, with left-sided chest wall and abdominal wall erosive mass, remote history of PE, previously on anticoagulation, held due to GI bleed, history of GI bleed, anterolateral blood thinner, single kidney, protein calorie malnutrition, deconditioning, cancer cachexia, chronic pain, was admitted of presenting with low-grade fevers, cough, fatigue, malaise, poor appetite. On presentation with acute on chronic respiratory failure with finding of recurrence of pneumonia, suspect aspiration, although PE could not entirely be ruled out. Small bilateral pleural effusions. Aspiration precautions were maintained. He was treated with Zosyn, vancomycin, vancomycin de-escalated. Received IV hydration for dehydration. Received a unit of RBC transfusion for anemia on presentation, hemoglobin 6.4. Remained steady after that at 8, 8.2. Off anticoagulation. Continues on PPI. Continues with dressing changes for left chest and upper abdominal wall erosive mass. Was also seen by dietitian due to poor nutritional status. Poor appetite. Continues on regular diet. Does not tolerate Ensure or boost well, but has done well with boost breeze. Continue nutritional supplements as tolerating. Today he is feeling better, he is at 3 L nasal cannula, usually at home around 3.5 as per discussion with his daughter. He is returning home with continued family and hospice care. Physical Exam Narrative: His daughter is by his bedside. Const: COMMON NORMALS: alert GENERAL APPEARANCE: cooperative and frail appearing ORIENTATION/CONSCIOUSNESS: Yes awake HENMT: COMMON NORMALS: normocephalic, EAC's normal, Normal external nose present and moist oral mucous membranes HEAD & SCALP: normocephalic NOSE: Normal external nose present EXTERNAL AUDITORY CANAL: EAC's normal Neck/C-Spine: COMMON NORMALS: no meningeal signs Chest: CHEST: Yes Symmetrical chest wall rise OTHER: Large erosive mass of left lower chest, left upper abdominal wall. Resp: COMMON NORMALS: clear to auscultation bilaterally AUSCULTATION: clear to auscultation bilaterally Cardio: COMMON NORMALS: regular rate, regular rhythm and No murmurs present (Cardio) RATE: regular rate RHYTHM: regular rhythm GI: COMMON NORMALS: Normal to inspection, nondistended, normoactive bowel sounds present, Soft to palpation and non-tender PALPATION: Yes Soft to palpation Extremity: COMMON NORMALS: no pedal edema Neuro: COMMON NORMALS: moves all extremities SENSORIUM/ORIENTATION: Yes alert MENINGEAL SIGNS: Yes no meningeal signs Psych: COMMON NORMALS: mental status grossly normal Skin: RASHES: no rashes Discharge Data Studies Completed and Pending Completed Studies During Hospitalization Category Date Time Status CT abdomen pelvis wo con [id number] Urgent Cat Scan 02/02/22 13:04 Completed XR chest 1V portable [id number] Stat Exams 02/02/22 12:16 Completed Pending at discharge Category Date Time Status Blood Culture Stat Lab 02/02/22 17:00 Results Complete Blood Count w/Auto AM LABS Lab 02/07/22 04:00 Ordered Complete Blood Count w/Auto AM LABS Lab 02/08/22 04:00 Ordered Comprehensive Metabolic Panel AM LABS Lab 02/07/22 04:00 Ordered Comprehensive Metabolic Panel AM LABS Lab 02/08/22 04:00 Ordered Magnesium AM LABS Lab 02/07/22 04:00 Ordered Magnesium AM LABS Lab 02/08/22 04:00 Ordered Phosphorus AM LABS Lab 02/07/22 04:00 Ordered Phosphorus AM LABS Lab 02/08/22 04:00 Ordered Sputum Culture and Gram Stain Stat Lab 02/02/22 17:02 Uncollected Radiology Impressions Chest X-Ray 02/02/22 12:16 IMPRESSION: Stable left pleuroparenchymal disease. Abdomen/Pelvis CT 02/02/22 13:04 IMPRESSION: There is a large left chest and abdominal wall mass. This appears similar to that seen on 12/19/2021. There are small bilateral pleural effusions which have increased in size when compared with 12/19/2021. There is bilateral lower lobe lung consolidation consistent with atelectasis and/or pneumonia. Laboratory Results WBC 19.0 10^3/uL (4.0-10.0) H 02/06/22 03:17 RBC 3.00 10^6/uL (4.1-5.3) L 02/06/22 03:17 Hgb 8.2 g/dL (11.7-16.6) L 02/06/22 03:17 Hct 28.8 % (42.0-52.0) L 02/06/22 03:17 MCV 96.0 fl (80-94) H 02/06/22 03:17 MCH 27.3 pg (28.0-34.0) L 02/06/22 03:17 MCHC 28.5 g/dL (30.0-36.0) L 02/06/22 03:17 RDW 20.7 % (12.1-15.1) H 02/06/22 03:17 Plt Count 197 10^3/cmm (130-400) 02/06/22 03:17 MPV 9.7 fL (7.4-10.4) 02/06/22 03:17 Neut % (Auto) 83.0 % 02/06/22 03:17 Lymph % (Auto) 4.5 % 02/06/22 03:17 [place] % (Auto) 9.1 % 02/06/22 03:17 Eos % (Auto) 2.6 % 02/06/22 03:17 Baso % (Auto) 0.2 % 02/06/22 03:17 Neut # (Auto) 15.76 10^3/uL (1.8-7.7) H 02/06/22 03:17 Lymph # (Auto) 0.9 10^3/uL (0.8-4.8) 02/06/22 03:17 [place] # (Auto) 1.7 10^3/uL (0.2-0.9) H 02/06/22 03:17 Eos # (Auto) 0.5 10^3/uL (0.0-0.8) 02/06/22 03:17 Baso # (Auto) 0.0 10^3/uL (0.0-0.1) 02/06/22 03:17 Nucleated RBC % (auto) 0 % 02/06/22 03:17 Nucleated RBCs # 0.0 /100WBC 02/06/22 03:17 D-Dimer 2.16 ug/mIFEU (0-0.59) H 02/02/22 17:55 Sodium 135 mmol/L (136-145) L 02/06/22 03:17 Potassium 3.5 mmol/L (3.5-5.1) 02/06/22 03:17 Chloride 105 mmol/L (98-107) 02/06/22 03:17 Carbon Dioxide 21 mmol/L (22-29) L 02/06/22 03:17 Anion Gap 12.5 (5-19) 02/06/22 03:17 BUN 5 mg/dL (8-23) L 02/06/22 03:17 Creatinine 0.5 mg/dL (0.7-1.2) L 02/06/22 03:17 GFR Calculation 165.4 mL/min (90-130) H 02/06/22 03:17 Glucose 115 mg/dL (65-115) 02/06/22 03:17 Calculated Osmolality 278 mOsm/kg (285-295) L 02/06/22 03:17 Lactic Acid 1.2 mmol/L (0.5-2.2) 02/02/22 17:55 Calcium 10.8 mg/dL (8.5-10.5) H 02/06/22 03:17 Ionized Calcium Jacey 1.6 mmol/L (1.1-1.4) H 02/02/22 14:21 Phosphorus 2.2 mg/dL (2.5-4.5) L 02/06/22 03:17 Magnesium 1.9 mg/dL (1.7-2.3) 02/06/22 03:17 Total Bilirubin 0.2 mg/dL (0.15-1.2) 02/06/22 03:17 AST 39 U/L (0-40) 02/06/22 03:17 ALT 37 U/L (0-41) 02/06/22 03:17 Alkaline Phosphatase 129 IU/L (40-130) 02/06/22 03:17 Troponin T Baseline 50 ng/L (0-15) H 02/02/22 17:55 Troponin T 120 Minute 49.85 ng/L (0-15) H 02/02/22 20:05 Delta Troponin T -0.15 ABS# (0-10) L 02/02/22 20:05 Troponin T Hi Sens 6Hr 43.68 ng/L (0-15) H 02/03/22 00:43 Troponin T Hi Sens 6Hr Delta -6.32 ng/L (0-12) L 02/03/22 00:43 NT-Pro-B Natriuret Pep 311 pg/mL (0-125) H 02/02/22 17:55 Total Protein 5.4 g/dL (6.6-8.7) L 02/06/22 03:17 Albumin 2.0 g/dL (3.5-5.2) L 02/06/22 03:17 Globulin 3.4 g/dL (1.3-4.6) 02/06/22 03:17 Procalcitonin 0.35 ng/mL (0-0.5) 02/02/22 17:55 TSH 0.67 uIU/mL (0.27-4.20) 02/02/22 14:21 Vancomycin Trough 17.6 ug/mL (10-15) H 02/04/22 06:41 Blood Type A Positive 02/04/22 08:55 Rho(D) Type Positive 02/04/22 08:55 Antibody Screen Negative 02/04/22 08:55 Crossmatch See Detail 02/04/22 08:55 Vitals Last Vital Signs Temp 98.0 F 02/06/22 07:20 Pulse 92 02/06/22 07:37 Resp 16 02/06/22 07:37 BP 100/65 02/06/22 07:20 Pulse Ox 94 02/06/22 07:37 Discharge Plan Discharge Patient Disposition: Hospice - Home Condition: Stable Prescriptions: New amoxicillin-pot clavulanate 400-57 mg/5 mL suspension for reconstitution 10 ml PO BID 5 Days Qty: 100 0RF W-Azta-Ypajhgz 250 mg tablet 1 tab PO DAILY Qty: 5 0RF Continued escitalopram oxalate 10 mg tablet 10 mg PO QAM 0RF albuterol sulfate [Ventolin HFA] 90 mcg/actuation HFA aerosol inhaler 2 puff INHALATION Q6H PRN (Reason: Shortness Of Breath) 0RF acetaminophen [Tylenol Arthritis Pain] 650 mg tablet extended release 1,300 mg PO BID PRN (Reason: Pain) 0RF morphine 30 mg Tablet Extended Release 30 mg PO BID PRN (Reason: Pain) 0RF oxycodone 15 mg Tablet 15 mg PO Q4H PRN (Reason: Pain) 0RF fluticasone propion-salmeterol [Advair Diskus] 500-50 mcg/dose Blister With Device 1 ea INHALATION QAM 0RF polyethylene glycol 3350 [Miralax] 17 gram/dose Powder 17 g PO QAM PRN (Reason: Constipation) 0RF Rx Instructions: MIXES IN JUICE lidocaine HCl 2 % Jelly 1 applic topical PRN PRN (Reason: pain) Qty: 30 0RF pantoprazole 40 mg Tablet,Delayed Release (Dr/Ec) 40 mg PO BIDWM Qty: 84 0RF tamsulosin 0.4 mg capsule 0.8 mg PO BEDTIME 0RF ferrous sulfate 325 mg (65 mg iron) tablet 325 mg PO DAILY Qty: 90 0RF SSD 1 % cream 1 applic TOPICAL . DIRECTED 0RF Rx Instructions: with wound change on torso ipratropium-albuterol 0.5 mg-3 mg(2.5 mg base)/3 mL solution for nebulization 3 ml INHALATION BID PRN (Reason: Shortness Of Breath) 0RF morphine concentrate 100 mg/5 mL (20 mg/mL) solution 10 mg PO Q1H PRN (Reason: Pain) 0RF alprazolam 0.5 mg Tablet 0.5 mg PO TID PRN (Reason: Anxiety) 0RF metronidazole 0.75 % gel See Rx Instructions .ROUTE .COMPLEX 0RF Rx Instructions: 1 applic topically with wound change Discharge Orders: Discharge Order (Routine); Ordered 02/06/22 Ordered By: Zak Cruz Referrals: [facility] [Outside] Mikael Gibson DO [Primary Care Provider] - 02/15/22 9:00 am Discharge Diet: Advance as tolerated and Regular Discharge Activity: Resume usual activity Patient Instructions: Amoxicillin/Clavulanate Potassium (By mouth), Aspiration Precautions (GEN), Opioid Safety Activity Restrictions/Additional Instructions: Resume oxygen as usual for comfort. Continue dressing changes for chest wall mass. Maintain aspiration precautions. Please have your primary doctor follow-up your blood count for anemia at next appointment. Due to not take blood thinners or aspirin anymore. Continue oral intake as tolerating. Add protein shakes of preference. Discharge Attestations Time Spent in Discharge Care*: greater than 30 min Status at Discharge: Cognitive status at discharge: cognitively intact, Behavioral status at discharge: cooperative, Quality Metrics Clinical Quality Measures [ No reported AMI, CVA or VTE this stay] Coding Level of Care Code Acute Chg FW DC note Diagnoses Lung cancer C34.90 Pneumonia J18.9 Pleural effusion J90 Volume depletion E86.9 GI bleed K92.2 Anemia D64.9 Cancer cachexia R64 Protein calorie malnutrition E46
--- NOTE | 2022-02-06 12:07 | PC.NURSE ---
DISCHARGE PAPERWORK GONE OVER WITH PT AND PTS . ALL QUESTIONS ANSWERED. MEDICATIONS SENT TO PHARMACY OF PTS CHOICE. PORT HAS BEEN DEACCESSED. PT TOLERATED WELL. PT HAS BEEN CHANGED INTO HIS OWN CLOTHES AND IS WAITING FOR AMBULANCE RIDE TO GET HERE. WILL CONTINUE TO MONITOR AND CARE FOR PT.
== END 2022-02-06 13:47 | disposition hospice, home (50) | DRG 177 ==
LOC: ER 16:39 → MEDSURG 16:56
PROVIDERS: Family Medicine; Admitting Provider Family Medicine; Emergency Provider Emergency Medicine; PCP Electrodiagnostic Medicine; Visit Provider Internal Medicine
DX: J69.0 Pneumonitis due to inhalation of food and vomit (principal); J96.21 Acute and chronic respiratory failure with hypoxia; I26.99 Other pulmonary embolism without acute cor pulmonale; C34.90 Malignant neoplasm of unspecified part of unspecified bronchus or lung; C79.51 Secondary malignant neoplasm of bone; N13.8 Other obstructive and reflux uropathy; E46 Unspecified protein-calorie malnutrition; Z68.23 Body mass index [BMI] 23.0-23.9, adult; D64.9 Anemia, unspecified; N40.1 Benign prostatic hyperplasia with lower urinary tract symptoms; Z87.01 Personal history of pneumonia (recurrent); Z85.528 Personal history of other malignant neoplasm of kidney; Z90.5 Acquired absence of kidney; Z90.2 Acquired absence of lung [part of]; Z87.891 Personal history of nicotine dependence; G89.3 Neoplasm related pain (acute) (chronic); K59.00 Constipation, unspecified; E86.0 Dehydration; Z79.891 Long term (current) use of opiate analgesic; Z79.51 Long term (current) use of inhaled steroids; R22.2 Localized swelling, mass and lump, trunk; E83.42 Hypomagnesemia; Z86.711 Personal history of pulmonary embolism; E83.52 Hypercalcemia
CPT/HCPCS: 36415; 36430; 71045; 74176; 80053; 80202; 82330; 83605; 83735; 83880; 84100; 84145; 84443; 84484; 85025; 85378; 86850; 86900; 86920; 87040; 93005; 94640; 94664; 96365; 99285; G0378; J0696; J2543; J3370; P9016